=== PATIENT | female | born 1990 | race Caucasian/White ===

== ENCOUNTER 2016-08-17 13:05 | Emergency (ER) | payer SELFPAY ==
[~2016-08-17] VITALS: Ht 160 cm; Wt 127.0 kg
[~2016-08-17 13:05] MED LIST: CEFU250T PO; CEPH500C PO; CLIN300C11 PO; CPR500T PO; DICL50TA4 PO; DIPH25CA79 PO; DOXY100T2 PO; HYDR-757 PO; METR500T PO; METR500T21 PO; OXYC-12 PO; PROP1TAB77; SULF-222 PO; SULF1TAB35 PO; SULF1TAB38 PO; TIZA4TAB3 PO; TRAM-21 PO; TRAM50TA2 PO
--- NOTE | 2016-08-17 14:14 | ED Integumentary General ---
General Chief Complaint: Skin/Wound Problems Stated Complaint: BOIL ON STOMACH Nursing Triage Note: PT REPORTS RED, WARM, SWOLLEN, TENDER AREA TO RIGHT LOWER ABD. HX OF MRSA INFECTIONS. Source: patient, family (sister), spouse Exam Limitations: no limitations History of Present Illness Time seen by provider: 14:14 Initial Comments 25-year-old female patient presents to the emergency department with complaints of an erythematous, swollen, tender area of the right lower abdominal wall. Patient does have a history of an MRSA infection in the same area. Location Injury Occurred: denies known injury Timing/Duration: getting worse, other (2 days) Location: torso (right lower abdominal wall) Possible Cause: no cause identified Modifying Factors: worse with other (worse with palpation) Allergies and Home Medications Allergies Coded Allergies: Sulfa (Sulfonamide Antibiotics) (Verified Allergy, Unknown, 05/04/16) Home Medications Clindamycin HCl 300 Mg Capsule #40 300 MG PO QID Prescribed by: GISSELLE TINAJERO on 08/17/16 1438 Tramadol HCl 50 Mg Tablet #10 50 MG PO Q6H PRN PRN PAIN Prescribed by: GISSELLE TINAJERO on 08/17/16 1438 Constitutional: No chills, No fever, No malaise Respiratory: no symptoms reported Cardiovascular: no symptoms reported Gastrointestinal: see HPI abdominal pain (right lower abdominal wall pain)No constipation, No diarrhea, No loss of appetite, No nausea, No vomiting Genitourinary: no symptoms reported Musculoskeletal: no symptoms reported Skin: see HPI change in color (erythema right lower abdominal wall) lumps ( right lower abdominal wall) Psychiatric/Neurological: No Symptoms Reported All Other Systems Reviewed Negative Unless Noted: Yes (Negative excepted noted.) Past Olywvjn-Dvuvup-Fhhreb Hx Patient Social History Alcohol Use: Regular Use Recreational Drug Use: No Smoking Status: Current Everyday Smoker Type Used: Cigarettes Recent Foreign Travel: No Contact w/Someone Who Travel: No Recent Infectious Disease Expo: No Recent Hopitalizations: Yes (Jun MRSA INFECTION) Immunizations Up To Date Tetanus Booster (TDap): Unknown PED Vaccines UTD: Yes Seasonal Allergies Seasonal Allergies: No Surgeries HX Surgeries: Yes (I&D OF ABSCESSES) Surgeries: Orthopedic, Tonsillectomy Respiratory Hx Respiratory Disorders: No Cardiovascular Hx Cardiac Disorders: No Neurological Hx Neurological Disorders: No Reproductive System Hx Reproductive Disorders: Yes Sexually Transmitted Disease: No HIV/AIDS: No Female Reproductive Disorders: Polycystic Ovarian Dis Genitourinary Hx Genitourinary Disorders: Yes Genitourinary Disorders: UTI-Chronic Gastrointestinal Hx Gastrointestinal Disorders: No Musculoskeletal Hx Musculoskeletal Disorders: No Endocrine Hx Endocrine Disorders: No HEENT HX ENT Disorders: No Loss of Vision: Denies Hearing Impairment: Denies Cancer Hx Cancer: No Psychosocial Hx Psychiatric Problems: No Integumentary HX Skin/Integumentary Disorder: Yes (MULTIPLE MRSA ABSCESSES) Blood Transfusions Hx Blood Disorders: No Adverse Reaction to a Blood Tr: No Reviewed Nursing Assessment Reviewed/Agree w Nursing PMH: Yes Family Medical History Significant Family History: No Pertinent Family Hx Family Medial History: Diabetes mellitus Maternal grandmother Paternal grandmother1 FHx: heart disease Maternal grandmother Physical Exam Vital Signs Vital Sign - Last 12Hours 08/17/16 13:49 Temp 98.2 Pulse 90 Resp 18 B/P 133/89 Capillary Refill : Less Than 3 Seconds General Appearance: WD/WN no apparent distress Cardiovascular: regular rate, rhythm no murmur Respiratory: lungs clear normal breath sounds no respiratory distress Gastrointestinal: softNo distended, No guarding, No rebound, tenderness (RLQ abdominal wall at site of cellulitis.) other (4x6 cm area of erythema of the RLQ abdominal wall with central fluctuance, warmth, and tenderness.) Extremities: normal capillary refill Neurologic/Psychiatric: alert normal mood/affect oriented x 3 Skin: normal color warm/dry other (4x6 cm area of erythema of the RLQ abdominal wall with central fluctuance, warmth, and tenderness.) Skin Problem Location: torso (rt lower quadrant abdominal wall.) Skin Problem Character: abscess, erythema, swelling, tenderness, warm I&D : Site: rt lower quadrant abdominal wall abscess. Blade Size: 11 I & D Procedure: betadine prep sterile drapes applied sterile dressing applied gauze wick placed Progress One quarter-inch plain packing used. Wound covered with 4 x 4 gauze and tape. Blood loss minimal. Patient tolerated the procedure well. Progress/Results/Core Measures Results/Orders My Orders Orders-GISSELLE TINAJERO Hydrocodone/Apap 7.5/325 Tab (Lortab 7. (08/17/16 14:22) Lidocaine/Epi 1% 1:100,000 (Xylocaine /E (08/17/16 14:30) Wound Culture (2/13/17 15:07) Vital Signs/I&O Vital Sign - Last 12Hours 08/17/16 13:49 Temp 98.2 Pulse 90 Resp 18 B/P 133/89 Blood Pressure Mean: 104 Departure Communication Progress Notes Patient seen, evaluated, and incision and drainage performed. Cultures sent to lab for testing. Discharge to home with oral antibiotics. Impression Impression: Primary Impression: Abscess Disposition: HOME, SELF-CARE Condition: Improved Departure-Patient Inst. Decision time for Depature: 14:34 Referrals: [facility] (PCP/Family) Primary Care Physician Patient Instructions: Abscess Incision and Drainage (DC) Add. Discharge Instructions: All discharge instructions reviewed with patient and/or family. Voiced understanding. Medications as instructed. Tylenol extra strength over-the- counter as directed for pain. Ibuprofen 800 mg by mouth every 8 hours as needed for pain. Shower with antibacterial soap. Change the packing twice daily. Follow-up with her family practitioner this week for recheck. Return to the emergency department for worsened swelling, redness, drainage, fever, or any other concerns. Scripts Tramadol HCl 50 Mg Liioeq50 Mg PO Q6H PRN PAIN #10 TAB Ref 0 Prov:GISSELLE TINAJERO 08/17/16 Clindamycin HCl 300 Mg [id number] Mg PO QID #40 CAP Ref 0 Prov:GISSELLE TINAJERO 08/17/16 GISSELLE TINAJERO Aug 17, 2016 14:14
[2016-08-17] MEDS ORDERED: HYDROcodone/APAP 7.5 MG/325 MG (LORTAB, LORCET PLUS) TABLET PO STA (14:22)
[2016-08-17] MEDS ORDERED: LIDOCAINE/EPI 1%-1:100,000 (XYLOCAINE) 20ML INJ ONE (14:30)
[2016-08-17] MEDS ORDERED: TRAM50TA2 PO (14:38)
[2016-08-17] MEDS ORDERED: CLIN300C11 PO (14:38)
[2016-08-17 15:27] VITALS: BP 138/90
== END 2016-08-17 15:27 | disposition home or self-care (01) ==
LOC: EDUNIT# 13:05 → ER 13:06
DX: L02.211 Cutaneous abscess of abdominal wall (principal); F17.210 Nicotine dependence, cigarettes, uncomplicated; Z86.14 Personal history of Methicillin resistant Staphylococcus aureus infection
CPT/HCPCS: 10061; 87070; 87077; 87186; 87205

== ENCOUNTER 2017-03-27 14:41 | Emergency (ER) | payer SELFPAY ==
[~2017-03-27] VITALS: Ht 157.5 cm; Wt 99.8 kg
--- OUTSIDE RECORDS SUMMARY | 2017-03-27 14:47 | XMS REPORT ---
Author Author ODETTE VILLAGRAN [facility] eClinicalWorks Address Unknown Phone Unavailable Care Team Providers Care Truck Rental Service Attendant Name Role Phone ODETTE VILLAGRAN CP Unavailable Allergies, Adverse Reactions, Alerts Substance Reaction Event Type Sulfamethoxazole-Trimethoprim rash Drug Allergy Problems Problem Type Condition Code Onset Dates Condition Status Assessment Dysuria R30.0 Active Assessment Skin infection L08.9 Active Problem High risk heterosexual behavior Z72.51 Active Problem Dysuria R30.0 Active Problem General medical exam Z00.00 Active Assessment High risk heterosexual behavior Z72.51 Active Assessment History of female hirsutism Z87.898 Active Problem Skin infection L08.9 Active Assessment General medical exam Z00.00 Active Medications Medication Code System Code Instructions Start Date End Date Status Dosage Spironolactone [facility] [address]-04 25 MG Orally Once a day May 15, 2015 1 tablet Keflex [facility] [address]-53 500 MG Orally four times a day October 22, 2015 November 01, 2015 1 capsule Procedures Procedure Coding System Code Date URINE TEST CPT-4 31525 October 22, 2015 SPECIMEN HANDLING CPT-4 03953 October 22, 2015 URINALYSIS, AUTO, W/O SCOPE CPT-4 34316 October 22, 2015 TRICHOMONAS ASSAY W/OPTIC CPT-4 91029 October 22, 2015 No Charge CPT-4 56906 October 22, 2015 CULTURE, BACTERIA, OTHER CPT-4 53279 October 22, 2015 Office Visit, Est Pt., Level 5 CPT-4 32932 October 22, 2015 Vital Signs Date/Time: October 22, 2015 Temperature 97.9 F Weight 269.0 lbs Height 64 in BMI 46.17 Index Blood Pressure Diastolic 82 mmHg Blood Pressure Systolic 136 mmHg Cardiac Monitoring Heart Rate 86 bpm Results Name Result Date Reference Range Unit Abnormality Flag UA LONG DIP (IN HOUSE) ----pH 6.0 20151022 ----BLO 2+ 20151022 ----Clarity clear 20151022 ----Color yellow 20151022 ----Odor no 20151022 ----GLU neg 20151022 ----RAMÓN neg 20151022 ----ROSALINE neg 20151022 ----NIT neg 20151022 ----KET neg 20151022 ----Lot # [id number] 20151022 ----SG 1.025 20151022 ----URO 0.2 20151022 ----Exp date 20151022 ----Protein neg 20151022 TEST, URINE (IN HOUSE) ----RESULTS negative 20151022 ----Lot # [id number] 20151022 ----Control + 20151022 ----Exp date 20151022 TRICHOMONAS (IN HOUSE) ----Exp date 20151022 ----Control + 20151022 ----Lot # [id number] 20151022 ----TRICHOMONAS negative 20151022 Summary Purpose eClinicalWorks Submission
--- OUTSIDE RECORDS SUMMARY | 2017-03-27 14:47 | XMS REPORT ---
Author Author JUVENCIO CALDERA [facility] eClinicalWorks Address Unknown Phone Unavailable Care Team Providers Care Oncology Account Specialist Name Role Phone JUVENCIO CALDERA CP Unavailable Allergies No Known Allergies Problems Problem Type Condition Code Onset Dates Condition Status Assessment Irregular menses 626.4 Active Medications No Known Medications Results No Known Results Summary Purpose eClinicalWorks Submission
--- OUTSIDE RECORDS SUMMARY | 2017-03-27 14:48 | XMS REPORT ---
Author Author ODETTE VILLAGRAN [facility] eClinicalWorks Address Unknown Phone Unavailable Care Team Providers Care Supervisor Coffee Name Role Phone ODETTE VILLAGRAN Unavailable Allergies No Known Allergies Problems Problem Type Condition Code Onset Dates Condition Status Problem High risk heterosexual behavior Z72.51 Active Problem Dysuria R30.0 Active Problem General medical exam Z00.00 Active Problem Skin infection L08.9 Active Medications Medication Code System Code Instructions Start Date End Date Status Dosage Flagyl [facility] [address]-51 500 MG Orally 2 times a day October 25, 2015 November 01, 2015 1 tablet Results No Known Results Summary Purpose eClinicalWorks Submission
--- OUTSIDE RECORDS SUMMARY | 2017-03-27 14:48 | XMS REPORT ---
Author Author ODETTE VILLAGRAN Organization eClinicalWorks Address Unknown Phone Unavailable Care Team Providers Care Community Liaison Name Role Phone ODETTE VILLAGRAN CP Unavailable Allergies No Known Allergies Problems Problem Type Condition Code Onset Dates Condition Status Problem High risk heterosexual behavior Z72.51 Active Problem Dysuria R30.0 Active Problem General medical exam Z00.00 Active Problem Skin infection L08.9 Active Medications No Known Medications Results No Known Results Summary Purpose eClinicalWorks Submission
--- OUTSIDE RECORDS SUMMARY | 2017-03-27 14:49 | XMS REPORT ---
Author Author DOMI RODAS [facility] eClinicalWorks Address Unknown Phone Unavailable Care Team Providers Care Herpetology Teacher Name Role Phone DOMI RODAS CP Unavailable Allergies, Adverse Reactions, Alerts Substance Reaction Event Type Sulfamethoxazole-Trimethoprim rash Drug Allergy Problems Problem Type Condition Code Onset Dates Condition Status Assessment History of female hirsutism Z87.898 Active Assessment Irregular menses N92.6 Active Assessment Lower abdominal pain R10.30 Active Assessment Pain with urination R30.9 Active Assessment History of ovarian cyst Z87.42 Active Assessment History of chlamydia Z86.19 Active Medications Medication Code System Code Instructions Start Date End Date Status Dosage Spironolactone [facility] [address]-13 25 MG Orally Once a day May 15, 2015 Aug 13, 2015 1 tablet Procedures Procedure Coding System Code Date VENIPUNCT, ROUTINE* CPT-4 68054 May 15, 2015 No Charge CPT-4 60476 May 15, 2015 COMPLETE CBC W/AUTO DIFF WBC CPT-4 13226 May 15, 2015 URINALYSIS, AUTO, W/O SCOPE CPT-4 45499 May 15, 2015 LIPID PANEL CPT-4 43400 May 15, 2015 ASSAY OF TOTAL TESTOSTERONE CPT-4 65933 May 15, 2015 Office Visit, Est Pt., Level 4 CPT-4 34889 May 15, 2015 GONADOTROPIN (LH) CPT-4 95725 May 15, 2015 COMPREHEN METABOLIC PANEL CPT-4 44133 May 15, 2015 ASSAY OF PROLACTIN CPT-4 28137 May 15, 2015 GONADOTROPIN (FSH) CPT-4 56146 May 15, 2015 Vital Signs Date/Time: May 15, 2015 Temperature 98.3 F Weight 266.4 lbs Height 64 in BMI 45.72 Index Blood Pressure Diastolic 82 mmHg Blood Pressure Systolic 120 mmHg Cardiac Monitoring Heart Rate 80 bpm Results Name Result Date Reference Range Unit Abnormality Flag ROUTINE VENIPUNCTURE UA LONG DIP (IN HOUSE) Summary Purpose eClinicalWorks Submission
--- OUTSIDE RECORDS SUMMARY | 2017-03-27 14:49 | XMS REPORT ---
Author Author KRZYSZTOF CARTER [facility] eClinicalWorks Address Unknown Phone Unavailable Care Team Providers Care Internal Auditor Name Role Phone KRZYSZTOF CARTER CP Unavailable Allergies No Known Allergies Problems Problem Type Condition Code Onset Dates Condition Status Problem Counseling on substance use and abuse V65.42 Active Problem Hidradenitis 705.83 Active Problem Screening examination for venereal disease V74.5 Active Problem Other specified symptom associated with female genital organs 625.8 Active Problem Contact dermatitis and other eczema, due to unspecified cause 692.9 Active Problem Procreative counseling and advice using natural family planning V26.41 Active Problem Muscle pain 729.1 Active Problem Pain in soft tissues of limb 729.5 Active Problem Unspecified erythematous condition 695.9 Active Problem Routine general medical examination at health care facility V70.0 Active Problem Swelling of limb 729.81 Active Problem Unspecified breast screening V76.10 Active Problem Nondependent tobacco use disorder 305.1 Active Problem Morbid obesity 278.01 Active Problem Screening for malignant neoplasm of the cervix V76.2 Active Problem Nausea alone 787.02 Active Problem Lumbago 724.2 Active Problem Dehydration 276.51 Active Problem Obesity, unspecified 278.00 Active Problem Dizziness and giddiness 780.4 Active Problem Dietary surveillance and counseling V65.3 Active Medications No Known Medications Results No Known Results Summary Purpose eClinicalWorks Submission
[2017-03-27] MEDS ORDERED: morphine INJ 10 MG/ML 1ML (SYR OR VIAL) IM STA (17:11)
[2017-03-27] MEDS ORDERED: LIDOCAINE 1% INJ 20 ML (XYLOCAINE) VIAL INJ STA (17:11)
--- NOTE | 2017-03-27 17:11 | ED Abdominal Pain ---
General Chief Complaint: Skin/Wound Problems Stated Complaint: BOIL ON LOWER STOMACH Nursing Triage Note: c/o abscess to each side of panniculus. Also reports abscess to axillas. Scattered rash in folds on back resembling fungal infection noted. Onset greater 1 week ago. States abscesses are recurrent. Sepsis Screen: No Definite Risk Source of Information: Patient, Other (friend) Exam Limitations: No Limitations History of Present Illness Time Seen By Provider: 16:50 Initial Comments 26-year-old female patient presents to the emergency department complains of abscesses of the panniculus. Patient reports a history of hidradenitis with multiple abscesses. Also complains of a fungal infection of the bilateral back folds and right neck. Denies fever or chills. Her and her friend both of tried squeezing on the abscesses at home. Denies contacting her PCP for this. Timing/Duration: 3-4 Days, Getting Worse Severity/Quality: Moderate Location: Other (panniculus) Radiation: No Radiation Activities at Onset: None Modifying Factors: Worsens With Palpation Allergies and Home Medications Allergies Coded Allergies: Sulfa (Sulfonamide Antibiotics) (Verified Allergy, Unknown, 05/04/16) Home Medications Ciprofloxacin HCl 500 Mg Tablet, 500 MG PO BID, #14 Ref 0 Prescribed by: GISSELLE TINAJERO on 03/27/171756 Clindamycin HCl 300 Mg Capsule, 300 MG PO QID, #40 Ref 0 Prescribed by: GISSELLE TINAJERO on 08/17/16 143 Clotrimazole/Betamethasone Dip 15 Gm Cream..g., 15 GM TP UD, #1 Ref 0 Apply to the affected area twice daily for 10-14 days. Continue medicine for 2 days after symptoms resolve. Prescribed by: GISSELLE TINAJERO on 03/27/17 180 Minocycline HCl 100 Mg Capsule, 100 MG PO BID, #14 Ref 0 Prescribed by: GISSELLE TINAJERO on 03/27/17 175 Tramadol HCl 50 Mg Tablet, 50 MG PO Q6H PRN for PAIN, #10 Ref 0 Prescribed by: GISSELLE TINAJERO on 08/17/16 143 Tramadol HCl 50 Mg Tablet, 50 MG PO Q6H PRN for PAIN-MILD, #14 Ref 0 Prescribed by: GISSELLE TINAJERO on 03/27/171756 Review of Systems Constitutional: No chills, No fever, No malaise Respiratory: No Symptoms Reported Cardiovascular: No Symptoms Reported Gastrointestinal: See HPI, Denies Abdomen Distended, Denies Abdominal Pain, Denies Constipated, Denies Diarrhea, Denies Nausea, Denies Vomiting Genitourinary: No Symptoms Reported Musculoskeletal: no symptoms reported Skin: see HPI, lumps, rash Psychiatric/Neurological: No Symptoms Reported All Other Systems Reviewed Negative Unless Noted: Yes (Negative excepted noted.) Past Dekryih-Acpzyb-Gvglbo Hx Patient Social History Alcohol Beverage of Choice: Vodka Type Used: Cigarettes Recent Foreign Travel: No Contact w/Someone Who Travel: No Recent Infectious Disease Expo: No Recent Hopitalizations: Yes (Jun MRSA INFECTION) Immunizations Up To Date Tetanus Booster (TDap): Unknown PED Vaccines UTD: Yes Seasonal Allergies Seasonal Allergies: No Surgeries History of Surgeries: Yes (I&D of abscesses) Surgeries: Orthopedic, Tonsillectomy Respiratory Currently Using BIPAP: No Cardiovascular History of Cardiac Disorders: No Neurological History of Neurological Disord: No Reproductive System Hx Reproductive Disorders: Yes Sexually Transmitted Disease: No HIV/AIDS: No Female Reproductive Disorders: Polycystic Ovarian Dis Genitourinary History of Genitourinary Disor: No Genitourinary Disorders: UTI-Chronic Gastrointestinal History of Gastrointestinal Di: No Musculoskeletal History of Musculoskeletal Dis: Yes Musculoskeletal Disorders: Fractures Endocrine History of Endocrine Disorders: No HEENT Loss of Vision: Denies Hearing Impairment: Denies Integumentary History of Skin or Integumenta: Yes (hidradenitis) Blood Transfusions Adverse Reaction to a Blood Tr: No Reviewed Nursing Assessment Reviewed/Agree w Nursing PMH: Yes Family Medical History Significant Family History: No Pertinent Family Hx Family Medial History: Diabetes mellitus Maternal grandmother Paternal grandmother1 FHx: heart disease Maternal grandmother Physical Exam Vital Signs VS - Last 72 Hours, by Label 03/27/17 03/27/17 03/27/17 16:20 18:09 18:10 Temp 97.5 97.5 97.5 Pulse 70 Resp 16 B/P (MAP) 134/93 O2 Delivery Room Air Capillary Refill : Less Than 3 Seconds General Appearance: WD/WN, no apparent distress HEENT: PERRL/EOMI, pharynx normal Neck: supple, normal inspection, other (scaly, erythematous rash of the rt neck consistent with tinea corporis.) Respiratory: lungs clear, normal breath sounds, no respiratory distress, no accessory muscle use Cardiovascular: regular rate, rhythm, no edema, no murmur Gastrointestinal: normal bowel sounds, soft, no organomegaly, No guarding, other (2x2.5 cm abscess left pannus and a 2x3.5 cm abscess right pannus with mild erythema and tenderness. scattered cysts of the lower abdominal wall and pannus noted.) Genital/Rectal: other (left labia majora shows a 1x0.5 cm cyst without erythema or open wound.) Extremities: no pedal edema, normal capillary refill, other ( Scattered cysts of the bilateral groin and proximal thighs.) Back: other (scaly, erythematous patches of the bilateral back folds consistent with tinea corporis.) Neurologic/Psychiatric: alert, normal mood/affect, oriented x 3 Skin: normal color, warm/dry, rash (scaly, erythematous patches of the bilateral back folds and rt neck consistent with tinea corporis.), other (2x2.5 cm abscess left pannus and a 2x3.5 cm abscess right pannus with mild erythema and tenderness. scattered cysts of the lower abdominal wall and pannus noted.left labia majora shows a 1x0.5 cm cyst without erythema or open wound. Scattered cysts of the bilateral groin and proximal thighs.) I&D #1: Site: rt pannus Blade Size: 11 I & D Procedure: betadine prep, sterile drapes applied, sterile dressing applied Packing/Drain: 1/4 [place] Drain Progress kelley drain secured with 0 prolene. blood loss minimal. patient tolerated the procedure well. I&D #2: Site: left pannus Blade Size: 11 I & D Procedure: betadine prep, sterile drapes applied, sterile dressing applied Packing/Drain: 1/4 [place] Drain Progress kelley drain secured with 0 prolene. blood loss minimal. patient tolerated the procedure well. Progress/Results/Core Measures Results/Orders My Orders Orders - GISSELLE TINAJERO Morphine Injection (Morphine Injection (03/27/17 17:11) Lidocaine 1% Injection (Xylocaine 1% Inj (03/27/17 17:11) Clindamycin Capsule (Cleocin Capsule) (03/27/17 17:15) Wound Culture (03/27/17 18:34) Wound Culture (03/27/17 18:38) Medications Given in ED Current Medications Medications Dose Ordered Sig/Kyler Route Start Time Stop Time Status Last Admin Dose Admin Clindamycin HCl 450 mg ONCE ONCE PO 03/27/17 17:15 03/27/17 17:16 DC 03/27/17 18:09 450 MG Vital Signs/I&O Vital Sign - Last 12Hours 03/27/17 03/27/17 03/27/17 16:20 18:09 18:10 Temp 97.5 97.5 97.5 Pulse 70 Resp 16 B/P (MAP) 134/93 O2 Delivery Room Air Blood Pressure Mean: 107 Departure Communication (Admissions) Progress Notes patient seen, evaluated, and I&D performed. plan for dsch to home. Impression Impression: Primary Impression: Hydradenitis Additional Impressions: Tinea corporis Upper respiratory infection Qualified Codes: J06.9 - Acute upper respiratory infection, unspecified Disposition: HOME, SELF-CARE Condition: Improved Departure-Patient Inst. Decision time for Depature: 17:55 Referrals: [facility] (PCP/Family) Primary Care Physician Patient Instructions: Hidradenitis Suppurativa Add. Discharge Instructions: All discharge instructions reviewed with patient and/or family. Voiced understanding. Medications as instructed. Tylenol extra strength over-the- counter as directed for pain. Ibuprofen 800 mg by mouth every 8 hours as needed for pain. Shower with antibacterial soap and cover with gauze and tape. Follow-up with your primary care provider as an outpatient early this week, call first thing Wednesday morning for appointment time. Return to the emergency department for worsened pain, swelling, redness, fever, drainage, or any other concerns. Scripts Clotrimazole/Betamethasone Dip (Lotrisone Cream) 15 Gm Cream..g. 15 GM TP UD, #1 TUBE 0 Refills Apply to the affected area twice daily for 10-14 days. Continue medicine for 2 days after symptoms resolve. Prov: GISSELLE TINAJERO 03/27/17 Tramadol HCl (Tramadol HCl) 50 Mg Tablet 50 MG PO Q6H Y for PAIN-MILD, #14 TAB 0 Refills Prov: GISSELLE TINAJERO 03/27/17 Minocycline HCl (Minocycline HCl) 100 Mg Capsule 100 MG PO BID, #14 CAP 0 Refills Prov: GISSELLE TINAJERO 03/27/17 Ciprofloxacin HCl (Ciprofloxacin HCl) 500 Mg Tablet 500 MG PO BID, #14 TAB 0 Refills Prov: GISSELLE TINAJERO 03/27/17 GISSELLE TINAJERO Mar 27, 2017 17:11
[2017-03-27] MEDS ORDERED: CLINDAMYCIN 150 MG (CLEOCIN) CAP PO ONE (17:15)
[2017-03-27] MEDS ORDERED: TRAM50TA2 PO (17:57)
[2017-03-27] MEDS ORDERED: CIPR500T4 PO (17:57)
[2017-03-27] MEDS ORDERED: MINO100C2 PO (17:57)
[2017-03-27] MEDS ORDERED: CLOT15CR4 TP (18:01)
[2017-03-27 19:23] VITALS: BP 128/90
== END 2017-03-27 19:23 | disposition home or self-care (01) ==
LOC: EDUNIT# 14:41 → ER 14:42
DX: L73.2 Hidradenitis suppurativa (principal); B35.4 Tinea corporis; J06.9 Acute upper respiratory infection, unspecified; Z87.81 Personal history of (healed) traumatic fracture; Z87.42 Personal history of other diseases of the female genital tract; Z90.89 Acquired absence of other organs
CPT/HCPCS: 87070; 87205; 96372

== ENCOUNTER 2017-09-06 15:16 | Emergency (ER) | payer SELFPAY ==
[~2017-09-06] VITALS: Ht 157.5 cm; Wt 113.4 kg
[~2017-09-06 15:16] MED LIST changes: +CIPR500T4 PO; +CLOT15CR4 TP; +MINO100C2 PO
[2017-09-06] MEDS ORDERED: PRD20T PO (15:29)
[2017-09-06] MEDS ORDERED: DOXY100T2 PO (15:29)
--- NOTE | 2017-09-06 15:30 | ED General ---
General Chief Complaint: Cough/Cold/Flu Symptoms Stated Complaint: COUGH Source of Information: Patient Exam Limitations: No Limitations History of Present Illness Date Seen by Provider: Sep 06, 2017 Time Seen by Provider: 15:25 Initial Comments ER with reports of a productive cough for the past 2 weeks. She also has discomfort in her throat. She reports night sweats. She also has an abscess on the right lower anterior abdominal wall present for 2-3 days. Timing/Duration: 2-3 Days Severity: Moderate Allergies and Home Medications Allergies Coded Allergies: Sulfa (Sulfonamide Antibiotics) (Verified Allergy, Unknown, 05/04/16) Home Medications Ciprofloxacin HCl 500 Mg Tablet, 500 MG PO BID Prescribed by: GISSELLE TINAJERO on 03/27/171756 Clindamycin HCl 300 Mg Capsule, 300 MG PO QID Prescribed by: GISSELLE TINAJERO on 08/17/161437 Clotrimazole/Betamethasone Dip 15 Gm Cream..g., 15 GM TP UD Apply to the affected area twice daily for 10-14 days. Continue medicine for 2 days after symptoms resolve. Prescribed by: GISSELLE TINAJERO on 03/27/17 180 Doxycycline Hyclate 100 Mg Tablet, 100 MG PO BID Prescribed by: RADHA SANDERS on 09/06/17 152 Minocycline HCl 100 Mg Capsule, 100 MG PO BID Prescribed by: GISSELLE TINAJERO on 03/27/171756 Prednisone 20 Mg Tab, 40 MG PO DAILY Prescribed by: RADHA SANDERS on 09/06/17 152 Tramadol HCl 50 Mg Tablet, 50 MG PO Q6H PRN for PAIN Prescribed by: GISSELLE TINAJERO on 08/17/16 143 Tramadol HCl 50 Mg Tablet, 50 MG PO Q6H PRN for PAIN-MILD Prescribed by: GISSELLE TINAJERO on 03/27/171756 Patient Home Medication List Home Medication List Reviewed: Yes Constitutional: see HPI EENTM: see HPI, other (left tympanic membrane is slightly erythematous and bulging) Respiratory: no symptoms reported Cardiovascular: no symptoms reported Genitourinary: no symptoms reported Musculoskeletal: no symptoms reported Skin: no symptoms reported Psychiatric/Neurological: No Symptoms Reported Hematologic/Lymphatic: No Symptoms Reported Immunological/Allergic: no symptoms reported Past Mmvfytn-Nuphdy-Lzosdx Hx Patient Social History Alcohol Beverage of Choice: Vodka Type Used: Cigarettes Recent Foreign Travel: No Contact w/Someone Who Travel: No Recent Hopitalizations: Yes (Jun MRSA INFECTION) Immunizations Up To Date Tetanus Booster (TDap): Unknown PED Vaccines UTD: Yes Seasonal Allergies Seasonal Allergies: No Surgeries History of Surgeries: Yes (I&D of abscesses) Surgeries: Orthopedic, Tonsillectomy Respiratory History of Respiratory Disorde: No Currently Using BIPAP: No Cardiovascular History of Cardiac Disorders: No Neurological History of Neurological Disord: No Reproductive System Hx Reproductive Disorders: Yes Sexually Transmitted Disease: No HIV/AIDS: No Female Reproductive Disorders: Polycystic Ovarian Dis Genitourinary History of Genitourinary Disor: No Genitourinary Disorders: UTI-Chronic Gastrointestinal History of Gastrointestinal Di: No Musculoskeletal History of Musculoskeletal Dis: Yes Musculoskeletal Disorders: Fractures Endocrine History of Endocrine Disorders: No HEENT Loss of Vision: Denies Hearing Impairment: Denies Cancer History of Cancer: No Psychosocial History of Psychiatric Problem: No Integumentary History of Skin or Integumenta: Yes (hidradenitis) Blood Transfusions History of Blood Disorders: No Adverse Reaction to a Blood Tr: No Family Medical History Significant Family History: No Pertinent Family Hx Family Medial History: Diabetes mellitus Maternal grandmother Paternal grandmother1 FHx: heart disease Maternal grandmother Physical Exam Vital Signs Vital Signs - First Documented 09/06/17 15:24 Temp 96.3 Pulse 96 Resp 18 B/P (MAP) 149/107 (121) Pulse Ox 96 O2 Delivery Room Air Capillary Refill : General Appearance: No Apparent Distress, WD/WN Eyes: Bilateral Eye Normal Inspection, Bilateral Eye PERRL, Bilateral Eye EOMI HEENT: PERRL/EOMI, TMs Normal Neck: Full Range of Motion, Normal Inspection Respiratory: Normal Breath Sounds, No Accessory Muscle Use, No Respiratory Distress Cardiovascular: Regular Rate, Rhythm Gastrointestinal: Normal Bowel Sounds, Non Tender, Soft Extremity: Normal Capillary Refill, Normal Inspection Neurologic/Psychiatric: Alert, Oriented x3, No Motor/Sensory Deficits Skin: Normal Color, Warm/Dry, Other (2 cm fluctuant abscess right lower abdominal wall) I&D : Blade Size: 11 Progress Abdominal wall abscess was anesthetized with 0.5 mL of 1% lidocaine without epinephrine. Stab incision was then made with 11 blade scalpel. Moderate amount of purulent material was expressed. 1/2 inch plain packing was placed. Covered with gauze. Progress/Results/Core Measures Suspected Sepsis SIRS Temperature: Pulse: Respiratory Rate: Blood Pressure / Mean: Results/Orders My Orders Orders - RADHA SANDERS APRN Chest Pa/Lat (2 View) (09/06/17 15:24) Wound Culture (09/06/17 15:24) Vital Signs/I&O Vital Sign - Last 12Hours 09/06/17 09/06/17 09/06/17 15:24 15:24 16:03 Temp 96.3 Pulse 96 85 Resp 18 20 B/P (MAP) 149/107 (121) 129/89 Pulse Ox 96 98 O2 Delivery Room Air Capillary Refill : Departure Impression Impression: Primary Impression: Abscess Additional Impression: Bronchitis Disposition: HOME, SELF-CARE Condition: Stable Departure-Patient Inst. Decision time for Depature: 15:27 Referrals: [facility] (PCP/Family) Primary Care Physician Patient Instructions: NO INSTRUCTIONS GIVEN Add. Discharge Instructions: 1. Return to ER for any concerns 2. Follow-up with your doctor next week 3. REmove packing tomorrow by simply pulling on it and keep it covered with gauze to collect the continued drainage for the next few days. All discharge instructions reviewed with patient and/or family. Voiced understanding. Scripts Prednisone (Prednisone) 20 Mg Tab 40 MG PO DAILY, #10 TAB Prov: RADHA SANDERS APRN 09/06/17 Doxycycline Hyclate (Doxycycline Hyclate) 100 Mg Tablet 100 MG PO BID, #14 TAB Prov: RADHA SANDERS APRN 09/06/17 RADHA SANDERS APRN Sep 06, 2017 15:29
--- NOTE | 2017-09-06 15:55 | Diagnostic Imaging Report ---
INDICATION: Cough and congestion. COMPARISON: 03/23/2015. FINDINGS: Two views of the chest are obtained. Heart size is normal. The pulmonary vessels appear unremarkable. There is no pneumothorax, mediastinal widening, or pleural fluid. The lungs are clear. The osseous structures appear unremarkable. IMPRESSION: No acute abnormality is demonstrated. Dictated by: Dictated on workstation # [id number]
[2017-09-06 16:03] VITALS: BP 129/89
== END 2017-09-06 16:03 | disposition home or self-care (01) ==
LOC: EDUNIT# 15:16 → ER 15:17
DX: J40 Bronchitis, not specified as acute or chronic (principal); L02.211 Cutaneous abscess of abdominal wall; Z87.42 Personal history of other diseases of the female genital tract; Z87.440 Personal history of urinary (tract) infections; Z87.81 Personal history of (healed) traumatic fracture; Z90.89 Acquired absence of other organs; Z86.14 Personal history of Methicillin resistant Staphylococcus aureus infection; Z88.2 Allergy status to sulfonamides
CPT/HCPCS: 56420; 71046; 87070; 87205

== ENCOUNTER 2017-12-12 17:28 | Emergency (ER) | payer SELFPAY ==
[~2017-12-12] VITALS: Ht 162.6 cm; Wt 90.7 kg
[~2017-12-12 17:28] MED LIST changes: +PRD20T PO
--- OUTSIDE RECORDS SUMMARY | 2017-12-12 17:34 | XMS REPORT ---
Author Author HANSA HOFFMANN [facility] Address [address] [place] [address] Care Team Providers Care Dispatcher Motor Vehicle Name Role Phone TAHIRA, HANSA Unavailable PROBLEMS Type Condition ICD9-CM Code [id number] Code Onset Dates Condition Status SNOMED Code Problem Dysuria R30.0 Active 92216055 Problem High risk heterosexual behavior Z72.51 Active 832875760 Problem Skin infection L08.9 Active 820019870 Problem General medical exam Z00.00 Active 625863181 ALLERGIES Substance Reaction Event Type Date Status Sulfamethoxazole-Trimethoprim rash Drug Allergy Jun, Active Cephalexin Unknown Drug Allergy Jun, Active ENCOUNTERS Encounter Location Date Diagnosis [facility] [id number] [place] [address] Sep, Acute suppurative otitis media of both ears without spontaneous rupture of tympanic membranes, recurrence not specified H66.003 ; Cutaneous abscess of abdominal wall L02.211 ; Cutaneous abscess of left lower limb L02.416 ; Seasonal allergic rhinitis, unspecified trigger J30.2 and BMI 45.0-49.9, adult Z68.42 [facility] [id number] [place] [address] Sep, Sore throat J02.9 ; Seasonal allergic rhinitis, unspecified trigger J30.2 and BMI 45.0-49.9, adult Z68.42 [facility] [id number] [place] [address] Jul, [facility] [id number] [place] [address]- [address] Jun, 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 [facility] [id number] [place] [address]- 30[address] Jun, Routine screening for STI (sexually transmitted infection) Z11.3 ; BMI 45.0-49.9, adult Z68.42 ; 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 [id number] [place] [address]- [address] Dec, Folliculitis L73.[address] [address] Oct, [address] [address] Oct, [address] [address] Oct, General medical exam Z00.00 ; High risk heterosexual behavior Z72.51 ; History of female hirsutism Z87.898 ; Dysuria R30.0 and Skin infection L08.[address] [address] May, Irregular menses 626.[address] [address] May, Lower abdominal pain R10.30 ; History of female hirsutism Z87.898 ; Irregular menses N92.6 ; History of ovarian cyst Z87.42 ; History of chlamydia Z86.19 and Pain with urination R30.9 [id number] [place] [address]- [address] Mar, [address] [address] Mar, Metrorrhagia 626.6 and Irregular menses 626.[address] [address]- [address] Mar, Irregular menses 626.4 ; Hirsutism 704.1 ; Vaginitis 616.10 and Metrorrhagia 626.6 [facility] [place] [facility] [address] [id number] [place] [address] Jan, Muscle pain 729.1 [facility] [place] [facility] [address] [id number] [place] [address] Oct, [facility] [place] [facility] [address] [facility] [id number] [place] [address] 99[address] Oct, [facility] [place] [facility] [address] [id number] [place] [address] Jun, [facility] [place] [facility] [address] [id number] [place] [address] 4470 Jun, [facility] [place] [facility] [address] [facility] [id number] [place] [address] 9060 Jun, [facility] [place] [facility] [address] [facility] [id number] [place] [address] 5471 Jun, [facility] [place] [facility] [address] [id number] [place] [address] 5271 Jun, [facility] [place] [facility] [address] [id number] [place] [address] 7212 Mar, [facility] [place] [facility] [address] [facility] [id number] [place] [address] 7532 Mar, [facility] [place] [facility] [address] [id number] [place] [address] 9[address] Feb, [facility] [place] [facility] [address] [id number] [place] [address] 4548 Feb, [facility] [place] [facility] [address] [id number] [place] [address]- 1804 Feb, [facility] [place] [facility] [address] [facility] [id number] [place] [address]- 0693 Feb, [facility] [place] [facility] [address] [facility] [id number] [place] [address]- 6365 Feb, [facility] [place] [facility] [address] [id number] [place] [address] 9795 15 Feb, 2014 [facility] [address] [id number] [place] [address] 1570 Feb, [facility] [address] [id number] [place] [address] 7733 Feb, [facility] [address] [id number] [place] [address] 4079 Oct, [facility] [address] [id number] [place] [address] 1699 Oct, [facility] [address] [id number] [place] [address] 3617 Oct, [facility] [address] [id number] [place] [address] 9874 Oct, [facility] [address] [id number] [place] [address]- 3396 Oct, [facility] [address] [id number] [place] [address] 9938 Oct, [facility] [address] [id number] [place] [address]- 2358 Oct, [facility] [address] [id number] [place] [address]- 1272 Jun, [facility] [place] [facility] [address] [id number] [place] [address]- 3670 27 Jun, 2013 [facility] [address] [id number] [place] [address]- 3969 17 Jun, 2013 [facility] [place] [facility] [address] [id number] [place] [address]- 9774 17 Jun, 2013 [facility] [place] [facility] [address] [id number] [place] [address]- 6275 16 Jun, 2013 [facility] [place] [facility] [address] [id number] [place] [address]- 1385 Jun, [facility] [address] [id number] [place] [address]- 1256 Jun, [facility] [place] [facility] [address] [id number] [place] [address]- 9816 Feb, [facility] [place] [facility] [address] [id number] [place] [address]- 3786 Jan, [facility] [place] [facility] [address] [id number] [place] [address]- 5696 Jan, [facility] [address] [id number] [place] [address]- 7746 Jan, [facility] [place] [facility] [address] [id number] [place] [address]- 8076 Jan, [facility] [address] [id number] [place] [address]- 8336 November, [facility] [address] [id number] [place] [address]- 4336 Oct, [facility] [place] [facility] [address] [id number] [place] [address]- 8866 Sep, [facility] [place] [facility] [address] [id number] [place] [address]- 7116 Aug, [facility] [place] [facility] [address] [id number] [place] [address]- 6896 Jul, [facility] [place] [facility] [address] [id number] [place] [address]- 6106 Jul, [facility] [place] [facility] [address] [id number] [place] [address]- 7626 Jul, [facility] [place] [facility] [address] [id number] [place] [address]- 3256 Jul, [facility] [place] [facility] [address] [id number] [place] [address]- 2546 Jul, [facility] [place] [facility] [address] [id number] [place] [address]- 65[address] Jul, [facility] [place] [facility] [address] [id number] [place] [address]- 2208 Jun, [facility] [place] [facility] [address] [facility] [id number] [place] [address]- 0173 Jun, [facility] [place] [facility] [address] [facility] [id number] [place] [address]- 7115 Jun, [facility] [place] [facility] [address] [id number] [place] [address]- 8959 Jun, [facility] [place] [facility] [address] [facility] [id number] [place] [address], [place] [address]- 6448 Jun, [facility] [place] [facility] [address] [facility] [id number] [place] [address]- 4754 Jun, [facility] [place] [facility] [address] [place] [address]- 8[address] Jun, [facility] [place] [facility] [address] [facility] [id number] [place] [address]- 4846 Apr, [facility] [place] [facility] [address] [facility] [id number] [place] [address]- 7736 Apr, [facility] [place] [facility] [address] [facility] [id number] [place] [address]- 5987 Apr, [facility] [place] [facility] [address] [facility] [id number] [place] [address]- 2103 Apr, [facility] [place] [facility] [address] [facility] [id number] [place] [address]- 5117 Apr, [facility] [place] [facility] [address] [facility] [id number] [place] [address]- 4583 Apr, [facility] [place] [facility] [address] [facility] [id number] [place] [address]- [address]24 27 Mar, 2012 [facility] [place] [facility] [address] [facility] [id number] [place] [address]- 1831 19 Mar, 2012 [facility] [place] [facility] [address] [id number] [place] [address]- 8649 14 Mar, 2011 [facility] [place] [facility] [address] [id number] [place] [address]- 6136 07 Mar, 2012 [facility] [place] [facility] [address] [id number] [place] [address] 2546 06 Mar, 2012 [facility] [place] [facility] [address] [id number] [place] [address]- 8566 05 Mar, 2012 [facility] [place] [facility] [address] [id number] [place] [address]- 5039 Feb, [facility] [place] [facility] [address] [id number] [place] [address]- 0328 Feb, [facility] [place] [facility] [address] [id number] [place] [address]- 1847 Feb, [facility] [place] [facility] [address] [id number] [place] [address]- 0283 Jan, [facility] [place] [facility] [address] [id number] [place] [address]- 7332 Jan, [facility] [place] [facility] [address] [id number] [place] [address]- 5694 November, [facility] [place] [facility] [address] [id number] [place] [address]- 7141 November, [facility] [place] [facility] [address] [id number] [place] [address]- 6486 November, [facility] [place] [facility] [address] [id number] [place] [address]- 7096 Aug, [facility] [place] [facility] [address] [id number] [place] [address]- 7925 Jul, [facility] [place] [facility] [address] [id number] [place] [address]- 7646 Jun, [facility] [place] [facility] [address] [id number] [place] [address]- 9249 Jun, [facility] [id number] [address]- [address] Apr, [facility] [address] [address]- [address] Apr, [facility] [address] [address]- 5366 Apr, [facility] [id number] [address]- 0[address] Apr, [facility] [address] [address]- 6189 Mar, [facility] [id number] [place] [address]- [address]896 Feb, [facility] [address] [address]- 9[address] Dec, [facility] [address] [address]- 4[address] Jan, [facility] [address] [address]- [address] May, [facility] [address] [address]- [address]141 May, IMMUNIZATIONS No Known Immunizations SOCIAL HISTORY Never Assessed REASON FOR VISIT Well Woman Exam---DBennettRN, would like blood work for STDs, questions about PCOS PLAN OF CARE Activity Details Follow Up 1 Year, sooner prn Reason: VITAL SIGNS Height 64 in 2017-06-15 Weight 278 lbs 2017-06-15 Temperature 98.8 degrees Fahrenheit 2017-06-15 Heart Rate 90 bpm 2017-06-15 Respiratory Rate 20 2017-06-15 BMI 47.71 kg/m2 2017-06-15 Blood pressure systolic 124 mmHg 2017-06-15 Blood pressure diastolic 90 mmHg 2017-06-15 MEDICATIONS Medication Instructions Dosage Frequency Start Date End Date Duration Status Spironolactone 25 MG Orally Once a day 1 tablet 24h May, Not -Taking Valacyclovir HCl 500 mg Orally twice a day 2 tablets 12h Jun, 2 Jul, 2017 07 days Active Diflucan 150 MG 1 tablet Jun, 1 dose Active RESULTS No Results PROCEDURES Procedure Date Ordered Result Body Site No Charge Jun 15, 2017 HERPES SIMPLEX TYPE 2 Jun 15, 2017 VENIPUNCT, ROUTINE* Jun 15, 2017 Bacterial Vaginosis In House Jun 15, 2017 TRICHOMONAS ASSAY W/OPTIC Jun 15, 2017 HERPES SIMPLEX TEST Jun 15, 2017 CULTURE, BACTERIA, OTHER Jun 15, 2017 INSTRUCTIONS MEDICATIONS ADMINISTERED No Known Medications MEDICAL (GENERAL) HISTORY Type Description Date Medical History hypertension Medical History anxiety Surgical History left humerus has plate and 7 screws Surgical History tonsillectomy and adenoidectomy- age 9
[2017-12-12] MEDS ORDERED: LIDOCAINE 1% INJ 20 ML 20 ML VIAL INJ ONE (19:30)
--- NOTE | 2017-12-12 19:30 | ED Integumentary General ---
General Chief Complaint: Skin/Wound Problems Stated Complaint: ABSCESS ON STOMACH Nursing Triage Note: ARRIVED VIA AMB WITH COMPLAINTS OF ABSCESS LEFT RHONDA AREA X1 WEEK. PT RECENTLY SHAVED PRIOR TO GETTIN ABSCESS. HAS A HX OF ABSCESS THAT HAVE TO BE LANCED AND PACKED. Source: patient, family Exam Limitations: no limitations History of Present Illness Date Seen by Provider: Dec 12, 2017 Time Seen by Provider: 19:22 Initial Comments The patient presents to the ER by private conveyance with a chief complaint she has a history of lots of abscess especially on her belly under her pannus. She says she has a history of hidradenitis suppurativa. She's not having any fevers or chills. She has a nodule midline under her pannus that has not started draining yet. She has no difficulty urinating or having bowel movements. She denies any nausea or vomiting. Allergies and Home Medications Allergies Coded Allergies: Sulfa (Sulfonamide Antibiotics) (Verified Allergy, Unknown, 05/04/16) Home Medications No Active Prescriptions or Reported Meds Patient Home Medication List Home Medication List Reviewed: Yes Constitutional: No chills, No diaphoresis EENTM: No ear discharge, No ear pain Respiratory: No cough, No phlegm Cardiovascular: No chest pain Gastrointestinal: No abdominal pain, No constipation, No diarrhea Genitourinary: No decreased output, No discharge, No dysuria : No Musculoskeletal: No back pain, No joint pain Skin: No pruritus, No rash Psychiatric/Neurological: Denies Headache, Denies Numbness Past Tepzepq-Ijfnvx-Yrijuu Hx Patient Social History Alcohol Use: Occasionally Uses Alcohol Beverage of Choice: Vodka Recreational Drug Use: No Smoking Status: Current Everyday Smoker Type Used: Cigarettes Recent Foreign Travel: No Contact w/Someone Who Travel: No Recent Infectious Disease Expo: No Recent Hopitalizations: Yes (Jun MRSA INFECTION) Immunizations Up To Date Tetanus Booster (TDap): Unknown PED Vaccines UTD: Yes Seasonal Allergies Seasonal Allergies: No Past Medical History Surgeries: Yes (I&D of abscesses) Orthopedic, Tonsillectomy Respiratory: No Currently Using BIPAP: No Cardiac: No Neurological: No Reproductive Disorders: Yes Female Reproductive Disorders: Polycystic Ovarian Dis Sexually Transmitted Disease: No HIV/AIDS: No Genitourinary: No UTI-Chronic Gastrointestinal: No Musculoskeletal: Yes Fractures Endocrine: No Loss of Vision: Denies Hearing Impairment: Denies Cancer: No Psychosocial: No Integumentary: Yes (hidradenitis) Blood Disorders: No Adverse Reaction/Blood Tranf: No Family Medical History Diabetes mellitus Maternal grandmother Paternal grandmother1 FHx: heart disease Maternal grandmother No Pertinent Family Hx Physical Exam Vital Signs Vital Signs - First Documented 12/12/17 18:22 Temp 98.0 Pulse 85 Resp 18 B/P (MAP) 156/97 (116) Pulse Ox 98 O2 Delivery Room Air Capillary Refill : Less Than 3 Seconds General Appearance: WD/WN, no apparent distress HEENT: PERRL/EOMI, pharynx normal Neck: non-tender, supple Cardiovascular: normal peripheral pulses, regular rate, rhythm Respiratory: no respiratory distress, no accessory muscle use Gastrointestinal: normal bowel sounds, soft Skin: other (several small old well-healed wounds and scars under the pannus and 1 central nodule with an open pore on the mons pubis with a palpable area of fluctuance underneath it approximately 1-1/2-2 cm wide.) Procedures/Interventions I&D : Site: mons pubis Blade Size: 11 Progress Wound was cleaned thoroughly with alcohol then chlorhexidine wipes. The wound was infiltrated with 1% lidocaine 4 cc and a ring fashion around the central pore when the patient was ascertained to be reasonably anesthetized we then used an 11 blade to make a cross santillan incision and drained about 10-15 cc of purulent material. The wound was then probed gently with a contact applicator to break up any loculations. The wound was then dressed with some sterile gauze and tape lightly. The patient tolerated this procedure very well. Progress/Results/Core Measures Results/Orders My Orders Orders - VALDEZ SCHAEFER Lidocaine 1% Inj 20 Ml (Xylocaine 1% Inj (12/12/17 19:30) Urine Bedside (12/12/17 19:39) Vital Signs/I&O 12/12/17 18:22 Temp 98.0 Pulse 85 Resp 18 B/P (MAP) 156/97 (116) Pulse Ox 98 O2 Delivery Room Air Blood Pressure Mean: 116 Departure Impression Primary Impression: Abscess Disposition: 01 HOME, SELF-CARE Condition: Improved Departure-Patient Inst. Decision time for Depature: 20:04 Referrals: [facility] (PCP/Family) Primary Care Physician Patient Instructions: Abscess Incision and Drainage (DC) Add. Discharge Instructions: Keep the wound clean with regular soap and water. Dislocated apply a loose gauze dressing over it but do not packet. Do not put anything in the wound such as alcohol or iodine or hydrogen peroxide. Just regular soap and water resolve in a. Start taking the clindamycin 300 mg twice a day for the next 7 days until completion. Follow up with a primary care doctor and discuss what can be done to help prevent these abscesses from forming. You can also use a capful of bleach and a couple inches of tepid bath water once or twice a week to try and reduce the incidence of abscesses. All discharge instructions reviewed with patient and/or family. Voiced understanding. Scripts Clindamycin HCl (Clindamycin HCl) 300 Mg Capsule 300 MG PO BID for 7 Days, #14 CAP 0 Refills Prov: VALDEZ SCHAEFER 12/12/17 Copy Copies To 1: JUVENCIO CALDERA DO VALDEZ SCHAEFER Dec 12, 2017 19:30
[2017-12-12] MEDS ORDERED: CLIN300C11 PO (20:06)
[2017-12-12 20:24] VITALS: BP 156/97
== END 2017-12-12 20:22 | disposition home or self-care (01) ==
LOC: EDUNIT# 17:28 → ER 17:29
DX: L02.215 Cutaneous abscess of perineum (principal); F17.210 Nicotine dependence, cigarettes, uncomplicated; Z87.448 Personal history of other diseases of urinary system; Z87.2 Personal history of diseases of the skin and subcutaneous tissue; Z90.89 Acquired absence of other organs; Z87.42 Personal history of other diseases of the female genital tract; Z87.81 Personal history of (healed) traumatic fracture; Z86.14 Personal history of Methicillin resistant Staphylococcus aureus infection; Z88.2 Allergy status to sulfonamides
CPT/HCPCS: 10060; 84703

== ENCOUNTER 2018-03-13 16:37 | Emergency (ER) | payer SELFPAY ==
[~2018-03-13] VITALS: Ht 160 cm; Wt 122.5 kg
[~2018-03-13 16:37] MED LIST changes: +HYDR-4226 PO; -HYDR-757 PO
[2018-03-13] MEDS ORDERED: cefTRIAXone 1,000 MG/2.86 ml vial (IM ONLY) IM SCH (17:00)
[2018-03-13] MEDS ORDERED: LIDOCAINE 1% INJ 20 ML 20 ML VIAL INJ ONE (17:00)
--- NOTE | 2018-03-13 17:03 | ED Integumentary General ---
General Chief Complaint: Skin/Wound Problems Stated Complaint: ABSCESS ON STOMACH/FEVER/NAUSEA Nursing Triage Note: ARRIVED VIA AMB WITH COMPLAINTS OF ABSCESS LEFT LOWER ABD. HAS A LONG HX OF THESE ABSCESS. HAS BEEN TOLD TO HAVE THEM REMOVED BY A SURGEON DUE TO TUNNELING BUT SHE CAN NOT AFFORD IT. Source: patient Exam Limitations: no limitations History of Present Illness Date Seen by Provider: Mar 13, 2018 Time Seen by Provider: 16:59 Initial Comments Patient is a 27-year-old female who presents to the emergency room with complaints of an abscess to her left lower abdomen. She noticed the area 3 days ago and became worse. There is an area of 6 cm in diameter of redness with a 2 cm area of fluctuation in the central punctum. 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 She reports feeling poorly for the past few days and is unsure if she is running a fever due to not taking her temperature. Timing/Duration: other (3 days) Associated Symptoms: denies symptoms Allergies and Home Medications Allergies Coded Allergies: Sulfa (Sulfonamide Antibiotics) (Verified Allergy, Unknown, 05/04/16) Home Medications Clindamycin HCl 300 Mg Capsule, 300 MG PO BID Prescribed by: VALDEZ SCHAEFER on 12/12/172005 Clindamycin HCl 300 Mg Capsule, 300 MG PO BID Prescribed by: LAKSHMI HENDERSON on 03/13/18 5622 Patient Home Medication List Home Medication List Reviewed: Yes Review of Systems Review of Systems Constitutional: see HPI; No chills, No fever Skin: see HPI, other (abscess to left lower abdomen) All Other Systems Reviewed Negative Unless Noted: Yes Past Qwptend-Iautzk-Cpnyyu Hx Past Med/Social Hx: Reviewed Nursing Past Med/Soc Hx Patient Social History Alcohol Beverage of Choice: Vodka Type Used: Cigarettes Recent Foreign Travel: No Contact w/Someone Who Travel: No Recent Infectious Disease Expo: No Recent Hopitalizations: Yes (Jun MRSA INFECTION) Immunizations Up To Date Tetanus Booster (TDap): Unknown PED Vaccines UTD: Yes Seasonal Allergies Seasonal Allergies: No Past Medical History Surgeries: Yes (I&D of abscesses) Orthopedic, Tonsillectomy Respiratory: No Currently Using BIPAP: No Cardiac: No Neurological: No Reproductive Disorders: Yes Female Reproductive Disorders: Polycystic Ovarian Dis Sexually Transmitted Disease: No HIV/AIDS: No Genitourinary: No UTI-Chronic Gastrointestinal: No Musculoskeletal: Yes Fractures Endocrine: No Loss of Vision: Denies Hearing Impairment: Denies Cancer: No Psychosocial: No Integumentary: Yes (hidradenitis) Blood Disorders: No Adverse Reaction/Blood Tranf: No Family Medical History Reviewed Nursing Family Hx Diabetes mellitus Maternal grandmother Paternal grandmother1 FHx: heart disease Maternal grandmother No Pertinent Family Hx Physical Exam Vital Signs Vital Signs - First Documented 03/13/18 16:39 Temp 98.6 Pulse 95 Resp 18 B/P (MAP) 144/82 (102) Pulse Ox 96 O2 Delivery Room Air Capillary Refill : Less Than 3 Seconds General Appearance: WD/WN, no apparent distress Cardiovascular: normal peripheral pulses, regular rate, rhythm, no edema, no gallop, no JVD, no murmur Respiratory: chest non-tender, lungs clear, normal breath sounds, no respiratory distress, no accessory muscle use Gastrointestinal: normal bowel sounds, non tender, soft, no organomegaly, no pulsatile mass Neurologic/Psychiatric: alert, normal mood/affect, oriented x 3 Skin Problem Location: other (left lower abdomen) Skin Problem Character: erythema, tenderness, other (6 cm in diameter area of erythema and induration with a central punctum of 2 cm x 2 cm.) Procedures/Interventions I&D : Site: left lower abdomen Blade Size: 11 I & D Procedure: betadine prep, sterile drapes applied Progress Anesthetized with 4 mL of 1% lidocaine without epinephrine. Open with a 1 cm incision using an 11 blade scalpel. A moderate amount of purulent material was expressed. Culture collected and sent to lab. Wound cavity then irrigated with Betadine/saline solution. Dressing applied. Progress/Results/Core Measures Results/Orders My Orders Orders - LAKSHMI HENDERSON Lidocaine 1% Inj 20 Ml (Xylocaine 1% Inj (03/13/18 17:00) Ceftriaxone For Im Use (Rocephin For Im (03/13/18 17:00) Ceftriaxone For Iv Use (Rocephin For I (03/13/18 17:11) Wound Culture (03/13/18 17:47) Medications Given in ED Current Medications Medications Dose Ordered Sig/Kyler Route Start Time Stop Time Status Last Admin Dose Admin Lidocaine HCl 20 ml ONCE ONCE INJ 03/13/18 17:00 03/13/18 17:01 DC 03/13/18 17:32 20 ML Vital Signs/I&O 03/13/18 03/13/18 16:39 17:50 Temp 98.6 98.6 Pulse 95 95 Resp 18 18 B/P (MAP) 144/82 (102) 144/82 (102) Pulse Ox 96 96 O2 Delivery Room Air Blood Pressure Mean: 102 Progress Progress Note : Time: 17:00 Progress Note I have seen and evaluated the patient. Clindamycin has been prescribed. She is taking in the past and seemed to work well. She agreed with plans for discharge , return precautions were given. Departure Impression Primary Impression: Hidradenitis suppurativa Additional Impressions: Abscess Cellulitis Disposition: HOME, SELF-CARE Condition: Stable/Unchanged Departure-Patient Inst. Decision time for Depature: 17:33 Referrals: [facility] (PCP/Family) Primary Care Physician Patient Instructions: Skin Abscess Add. Discharge Instructions: Take medication as directed. Follow up with [facility] within 1 week for recheck. Call first thing tomorrow morning for an appointment time. Return back to emergency room for any worsening symptoms or concerns as needed. You may use ibuprofen and Tylenol as directed by the bottle for pain. All discharge instructions reviewed with patient and/or family. Voiced understanding. Scripts Clindamycin HCl (Clindamycin HCl) 300 Mg Capsule 300 MG PO BID for 7 Days, #14 CAP Prov: LAKSHMI HENDERSON 03/13/18 LAKSHMI HENDERSON Mar 13, 2018 17:03
[2018-03-13] MEDS ORDERED: cefTRIAXone 1 GM/10 ML for IV (ROCEPHIN) IV ONE (17:11)
[2018-03-13] MEDS ORDERED: CLIN300C11 PO (17:35)
[2018-03-13 17:50] VITALS: BP 144/82
== END 2018-03-13 17:50 | disposition home or self-care (01) ==
LOC: EDUNIT# 16:37 → ER 16:38
DX: L73.2 Hidradenitis suppurativa (principal); L02.211 Cutaneous abscess of abdominal wall; L03.311 Cellulitis of abdominal wall; Z88.2 Allergy status to sulfonamides; Z86.14 Personal history of Methicillin resistant Staphylococcus aureus infection; Z90.89 Acquired absence of other organs; Z87.448 Personal history of other diseases of urinary system; Z82.49 Family history of ischemic heart disease and other diseases of the circulatory system
CPT/HCPCS: 10160; 87070; 87077; 87205; 96372

== ENCOUNTER 2018-09-02 21:32 | Emergency (ER) | payer SELFPAY ==
[~2018-09-02] VITALS: Ht 160 cm; Wt 81.6 kg
[~2018-09-02 21:32] MED LIST changes: +METR-145 PO; -METR500T21 PO
--- NOTE | 2018-09-02 21:51 | ED General ---
General Chief Complaint: General Problems/Pain Stated Complaint: SWELLING, LOWER BACK PAIN Nursing Triage Note: complaint of extremity tightness, pain. lower back pain. Nursing Sepsis Screen: No Definite Risk Source of Information: Patient Exam Limitations: No Limitations History of Present Illness Date Seen by Provider: Sep 02, 2018 Time Seen by Provider: 21:49 Initial Comments To ER with a 3 week history of swelling and a tight painful sensation in both hands and both feet. She also has had a several month history of midline low back pain that radiates down the right thigh laterally, and more recently it's begun to spread medially. No loss of bowel or bladder control, no fevers or chills, no dysuria. Concerned about "infection" secondary to hidradenitis suppurativa, she does not have any abscesses now but she has some nausea . Severity: Moderate Associated Systoms: No Fever/Chills, No Headaches, No Nausea/Vomiting Allergies and Home Medications Allergies Coded Allergies: Sulfa (Sulfonamide Antibiotics) (Verified Allergy, Unknown, 05/04/16) Home Medications Clindamycin HCl 300 Mg Capsule, 300 MG PO BID Prescribed by: VALDEZ SCHAEFER on 12/12/172005 Clindamycin HCl 300 Mg Capsule, 300 MG PO BID Prescribed by: LAKSHMI HENDERSON on 03/13/18 173 Doxycycline Monohydrate 100 Mg Tablet, 100 MG PO BID Prescribed by: RADHA SANDERS on 09/02/182240 Hydrochlorothiazide 25 Mg Tablet, 25 MG PO DAILY Prescribed by: RADHA SANDERS on 09/02/182240 Patient Home Medication List Home Medication List Reviewed: Yes Review of Systems Review of Systems Constitutional: see HPI EENTM: see HPI Respiratory: no symptoms reported; No short of breath Cardiovascular: no symptoms reported Genitourinary: no symptoms reported Musculoskeletal: no symptoms reported Skin: no symptoms reported Psychiatric/Neurological: No Symptoms Reported Hematologic/Lymphatic: No Symptoms Reported Past Vjlgyuh-Itgyev-Tbkexc Hx Patient Social History Alcohol Use: Denies Use Number of Drinks Today: FF Alcohol Beverage of Choice: Vodka Recreational Drug Use: Yes (SMOKES CIGARETTES) Smoking Status: Current Everyday Smoker Type Used: Cigarettes Recent Foreign Travel: No Contact w/Someone Who Travel: No Recent Infectious Disease Expo: No Recent Hopitalizations: Yes (Jun MRSA INFECTION) Immunizations Up To Date Tetanus Booster (TDap): Unknown PED Vaccines UTD: Yes Seasonal Allergies Seasonal Allergies: No Past Medical History Surgeries: Yes (I&D of abscesses) Orthopedic, Tonsillectomy Respiratory: No Currently Using BIPAP: No Cardiac: No Neurological: No Reproductive Disorders: Yes Female Reproductive Disorders: Polycystic Ovarian Dis Sexually Transmitted Disease: No HIV/AIDS: No Genitourinary: No UTI-Chronic Gastrointestinal: No Musculoskeletal: Yes Fractures Endocrine: No Loss of Vision: Denies Hearing Impairment: Denies Cancer: No Psychosocial: No Integumentary: Yes (hidradenitis) Blood Disorders: No Adverse Reaction/Blood Tranf: No Family Medical History Diabetes mellitus Maternal grandmother Paternal grandmother1 FHx: heart disease Maternal grandmother No Pertinent Family Hx Physical Exam Vital Signs Vital Signs - First Documented 09/02/18 21:42 Temp 97.8 Pulse 108 Resp 18 B/P (MAP) 137/112 (120) Pulse Ox 100 O2 Delivery Room Air Capillary Refill : Less Than 3 Seconds Height, Weight, BMI Height: 5'3.00" Weight: 180lbs. 3.1oz. [id number]; 50.0 BMI Method:Estimated General Appearance: No Apparent Distress, WD/WN, Obese Eyes: Bilateral Eye Normal Inspection, Bilateral Eye PERRL, Bilateral Eye EOMI HEENT: PERRL/EOMI, TMs Normal Neck: Full Range of Motion, Normal Inspection Respiratory: No Accessory Muscle Use, No Respiratory Distress Cardiovascular: No Edema, Normal Peripheral Pulses, Other (borderline tachycardic rate of 101) Gastrointestinal: Normal Bowel Sounds, Non Tender, Soft Extremity: Normal Capillary Refill, Normal Inspection Neurologic/Psychiatric: Alert, Oriented x3 Skin: Normal Color, Warm/Dry Progress/Results/Core Measures Suspected Sepsis Recent Fever Within 48 Hours: No Infection Criteria Present: None New/Unexplained Altered Menta: No Sepsis Screen: No Definite Risk SIRS Temperature:97.8 Pulse: 108 Respiratory Rate: 18 Laboratory Tests 09/02/18 21:48: White Blood Count 14.8H Blood Pressure 137 /112 Mean: 120 Laboratory Tests 09/02/18 21:48: Creatinine 0.79, Platelet Count 367, Total Bilirubin 0.9 Results/Orders Lab Results Laboratory Tests Test 09/02/18 21:48 09/02/18 21:50 Range/Units White Blood Count 14.8 H 4.3-11.0 10^3/uL Red Blood Count 5.11 4.35-5.85 10^6/uL Hemoglobin 17.8 H 11.5-16.0 G/DL Hematocrit 52 35-52 % Mean Corpuscular Volume 102 H 80-99 FL Mean Corpuscular Hemoglobin 35 H 25-34 PG Mean Corpuscular Hemoglobin Concent 34 32-36 G/DL Red Cell Distribution Width 12.4 10.0-14.5 % Platelet Count 367 130-400 10^3/uL Mean Platelet Volume 9.6 7.4-10.4 FL Neutrophils (%) (Auto) 63 42-75 % Lymphocytes (%) (Auto) 29 12-44 % Monocytes (%) (Auto) 6 0-12 % Eosinophils (%) (Auto) 1 0-10 % Basophils (%) (Auto) 0 0-10 % Neutrophils # (Auto) 9.4 H 1.8-7.8 X 10^3 Lymphocytes # (Auto) 4.3 H 1.0-4.0 X 10^3 Monocytes # (Auto) 0.9 0.0-1.0 X 10^3 Eosinophils # (Auto) 0.2 0.0-0.3 10^3/uL Basophils # (Auto) 0.0 0.0-0.1 10^3/uL Neutrophils % (Manual) 59 % Lymphocytes % (Manual) 30 % Monocytes % (Manual) 8 % Eosinophils % (Manual) 2 % Basophils % (Manual) 1 % Band Neutrophils 0 % Macrocytosis SLIGHT Sodium Level 137 135-145 MMOL/L Potassium Level 4.3 3.6-5.0 MMOL/L Chloride Level 103 98-107 MMOL/L Carbon Dioxide Level 22 21-32 MMOL/L Anion Gap 12 5-14 MMOL/L Blood Urea Nitrogen 9 7-18 MG/DL Creatinine 0.79 0.60-1.30 MG/DL Estimat Glomerular Filtration Rate > 60 BUN/Creatinine Ratio 11 Glucose Level 132 H 70-105 MG/DL Calcium Level 10.3 H 8.5-10.1 MG/DL Corrected Calcium 8.5-10.1 MG/DL Total Bilirubin 0.9 0.1-1.0 MG/DL Aspartate Amino Transf (AST/SGOT) 53 H 5-34 U/L Alanine Aminotransferase (ALT/SGPT) 42 0-55 U/L Alkaline Phosphatase 45 40-136 U/L Total Protein 7.9 6.4-8.2 GM/DL Albumin 4.9 H 3.2-4.5 GM/DL Thyroid Stimulating Hormone (TSH) 0.73 0.35-4.94 UIU/ML Free Thyroxine 0.98 0.70-1.48 NG/DL Serum Test, Qualitative NEGATIVE NEGATIVE Urine Color YELLOW Urine Clarity SLIGHTLY CLOUDY Urine pH 6 5-9 Urine Specific [place] 1.015 L 1.016-1.022 Urine Protein NEGATIVE NEGATIVE Urine Glucose (UA) NEGATIVE NEGATIVE Urine Ketones NEGATIVE NEGATIVE Urine Nitrite NEGATIVE NEGATIVE Urine Bilirubin NEGATIVE NEGATIVE Urine Urobilinogen NORMAL NORMAL MG/DL Urine Leukocyte Esterase 3+ H NEGATIVE Urine RBC (Auto) NEGATIVE NEGATIVE Urine RBC NONE /HPF Urine WBC 10-25 H /HPF Urine Squamous Epithelial Cells 10-25 H /HPF Urine Crystals NONE /LPF Urine Bacteria FEW H /HPF Urine Casts NONE /LPF Urine Mucus NEGATIVE /LPF Urine Culture Indicated YES My Orders Orders - RADHA SANDERS APRN Cbc With Automated Diff (09/02/18 21:46) Hcg,Qualitative Serum (09/02/18 21:46) Comprehensive Metabolic Panel (09/02/18 21:46) Ua Culture If Indicated (09/02/18 21:46) Thyroid Stimulating Hormone (09/02/18 21:46) Free T4 (Free Thyroxine) (09/02/18 21:46) Ketorolac Injection (Toradol Injection) (09/02/18 22:00) Metoprolol Tartrate Injection (Lopressor (09/02/18 22:00) Manual Differential (09/02/18 21:48) BNP (09/02/18 22:19) Urine Culture (09/02/18 21:50) Ondansetron Oral Dissolve Tab (Zofran (09/02/18 22:45) Doxycycline Hyclate Tablet (Vibramycin T (09/02/18 22:45) Medications Given in ED Current Medications Medications Dose Ordered Sig/Kyler Route Start Time Stop Time Status Last Admin Dose Admin Ketorolac Tromethamine 15 mg ONCE ONCE IVP 09/02/18 22:00 09/02/18 22:01 DC 09/02/18 21:57 15 MG Metoprolol Tartrate 5 mg ONCE ONCE IV 09/02/18 22:00 09/02/18 22:01 DC 09/02/18 21:56 5 MG Vital Signs/I&O 09/02/18 21:42 Temp 97.8 Pulse 108 Resp 18 B/P (MAP) 137/112 (120) Pulse Ox 100 O2 Delivery Room Air Capillary Refill : Less Than 3 Seconds Blood Pressure Mean: 120 Departure Impression Primary Impression: Hypertension Qualified Codes: I10 - Essential (primary) hypertension Additional Impressions: Peripheral edema Lumbar radiculopathy Leukocytosis Qualified Codes: D72.829 - Elevated white blood cell count, unspecified History of hidradenitis suppurativa UTI (urinary tract infection) Qualified Codes: N30.00 - Acute cystitis without hematuria Disposition: HOME, SELF-CARE Condition: Stable Departure-Patient Inst. Decision time for Depature: 22:37 Referrals: JUVENCIO CALDERA DO [facility] (PCP/Family) Primary Care Physician DOMI RODAS MD, HOLLY R MD Patient Instructions: General (DC) Add. Discharge Instructions: 1. Call one of the physicians listed on Wednesday morning to make an appointment to be seen next week to follow up on the blood pressure, swelling in her hands and feet and to schedule an MRI to further evaluate your back pain 2. Return to ER for any concerns 3. All discharge instructions reviewed with patient and/or family. Voiced understanding. Scripts Prednisone (Prednisone) 20 Mg Tab 40 MG PO DAILY, #8 TAB Prov: RADHA SANDERS APRN 09/02/18 Hydrochlorothiazide (Hydrochlorothiazide) 25 Mg Tablet 25 MG PO DAILY, #20 TAB Prov: RADHA SANDERS APRN 09/02/18 Doxycycline Monohydrate (Doxycycline Monohydrate) 100 Mg Tablet 100 MG PO BID, #14 TAB Prov: RADHA SANDERS APRN 09/02/18 Work/School Note: Work Release Form Date Seen in the Emergency Department: Sep 02, 2018 Return to Work: Sep 04, 2018 RADHA SANDERS APRN Sep 02, 2018 21:50
[2018-09-02 21:54] LABS: BASOPHILS % (AUTO) 0 % (0-10); EOSINOPHILS # (AUTO) 0.2 10^3/uL (0.0-0.3); EOSINOPHILS % (AUTO) 1 % (0-10); HEMATOCRIT 52 % (35-52); HEMOGLOBIN 17.8 G/DL (11.5-16.0); LYMPHOCYTES # (AUTO) 4.3 X 10^3 (1.0-4.0); LYMPHOCYTES % (AUTO) 29 % (12-44); MEAN CORPUSCULAR HEMOGLOBIN 35 PG (25-34); MEAN CORPUSCULAR HGB CONC 34 G/DL (32-36); MEAN CORPUSCULAR VOLUME 102 FL (80-99); MEAN PLATELET VOLUME 9.6 FL (7.4-10.4); MONOCYTES # (AUTO) 0.9 X 10^3 (0.0-1.0); MONOCYTES % (AUTO) 6 % (0-12); NEUTROPHILS # (AUTO) 9.4 X 10^3 (1.8-7.8); NEUTROPHILS % (AUTO) 63 % (42-75); PLATELET COUNT 367 10^3/uL (130-400); RED CELL DISTRIBUTION WIDTH 12.4 % (10.0-14.5); WHITE BLOOD COUNT 14.8 10^3/uL (4.3-11.0)
[2018-09-02] MEDS ORDERED: meTOprolol 5 MG/5 ML (LOPRESSOR) VIAL IV ONE (22:00)
[2018-09-02] MEDS ORDERED: KETOROLAC 30 MG/ML VIAL IVP ONE (22:00)
[2018-09-02 22:06] LABS: BILIRUBIN,URINE NEGATIVE (NEGATIVE); CLARITY,URINE SLIGHTLY CLOUDY; COLOR,URINE YELLOW; GLUCOSE, URINE (UA) NEGATIVE (NEGATIVE); KETONES,URINE NEGATIVE (NEGATIVE); LEUKOCYTE ESTERASE ,URINE 3+ (NEGATIVE); NITRITE,URINE NEGATIVE (NEGATIVE); PH,URINE 6 (5-9); PROTEIN,URINE NEGATIVE (NEGATIVE); UROBILINOGEN,URINE NORMAL (NORMAL)
[2018-09-02 22:10] LABS: BAND NEUTROPHILS 0 %; BASOPHILS % (MANUAL) 1 %; EOSINOPHILS % (MANUAL) 2 %; LYMPHOCYTES % (MANUAL) 30 %; MONOCYTES % (MANUAL) 8 %; NEUTROPHILS % (MANUAL) 59 %
[2018-09-02 22:18] LABS: ALANINE AMINOTRANSFERASE 42 U/L (0-55); ALBUMIN 4.9 GM/DL (3.2-4.5); ALKALINE PHOSPHATASE 45 U/L (40-136); BILIRUBIN,TOTAL 0.9 MG/DL (0.1-1.0); BUN/CREATININE RATIO 11; CALCIUM 10.3 MG/DL (8.5-10.1); CARBON DIOXIDE 22 MMOL/L (21-32); CHLORIDE 103 MMOL/L (98-107); CREATININE SERUM 0.79 MG/DL (0.60-1.30); GFR ESTIMATED > 60; GLUCOSE 132 MG/DL (70-105); POTASSIUM 4.3 MMOL/L (3.6-5.0); SODIUM 137 MMOL/L (135-145); TOTAL PROTEIN 7.9 GM/DL (6.4-8.2)
[2018-09-02 22:38] LABS: FREE T4 (FREE THYROXINE) 0.98 NG/DL (0.70-1.48)
[2018-09-02 22:38] LABS: BACTERIA,URINE FEW /HPF
[2018-09-02] MEDS ORDERED: HYDR25TA4 PO (22:41)
[2018-09-02] MEDS ORDERED: DOXY100T19 PO (22:41)
[2018-09-02] MEDS ORDERED: ONDANSETRON 4 MG (ZOFRAN) ORAL DISSOLVE TAB PO ONE (22:45)
[2018-09-02] MEDS ORDERED: DOXYCYCLINE 100 MG (VIBRAMYCIN) TABLET PO SCH (22:45)
[2018-09-02] MEDS ORDERED: PRD20T PO (22:51)
[2018-09-02 22:56] VITALS: BP 137/112
--- OUTSIDE RECORDS SUMMARY | 2018-09-04 10:12 | XMS REPORT ---
Author Author ERICA VUONG Organization [facility] Address [address] [place] [address] Care Team Providers Care Striper Name Role Phone ERICA VUONG Unavailable PROBLEMS Type Condition ICD9-CM Code YNB64-GM Code Onset Dates Condition Status SNOMED Code Problem Sciatica of left side M54.32 Active 63159061 Problem Skin infection L08.9 Active 316945079 Problem High risk heterosexual behavior Z72.51 Active 904531896 Problem General medical exam Z00.00 Active 681721658 Problem Dysuria R30.0 Active 00624930 ALLERGIES Substance Reaction Event Type Date Status Sulfamethoxazole-Trimethoprim rash Drug Allergy Dec, Active Cephalexin Unknown Drug Allergy Dec, Active ENCOUNTERS Encounter Location Date Diagnosis [facility] [id number] [place] [address] 92930- 4900 Dec, Low back pain M54.5 ; Sciatica of left side M54.32 ; Screening for diabetes mellitus Z13.1 ; Screening for hyperlipidemia Z13.220 ; Screening for other and unspecified deficiency anemia Z13.0 ; Chronic fatigue R53.82 and Elevated blood pressure reading R03.0 [facility] [id number] [place] [address] 11008- 2879 Sep, Acute suppurative otitis media of both ears without spontaneous rupture of tympanic membranes, recurrence not specified H66.003 ; Cutaneous abscess of abdominal wall L02.211 ; Cutaneous abscess of left lower limb L02.416 ; Seasonal allergic rhinitis, unspecified trigger J30.2 and BMI 45.0-49.9, adult Z68.42 [facility] [id number] [place] [address]16 -[address]386 Sep, Sore throat J02.9 ; Seasonal allergic rhinitis, unspecified trigger J30.2 and BMI 45.0-49.9, adult Z68.42 [place] [id number] [place] [address] 79382- 7666 Jul, [place] [id number] [place] [address] 50074- 1590 Jun, 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 [place] [id number] [place] [address] 46630- 0296 Jun, Routine screening for STI (sexually transmitted infection) Z11.3 ; BMI 45.0-49.9, adult Z68.42 ; 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 [place] [id number] [place] [address] 82306- 3747 Dec, Folliculitis L73.9 [place] [id number] [place] [address] 81294- 1056 Oct, [place] [id number] [place] [address] 23069- 6332 Oct, [place] [id number] [place] [address] 24704- 6392 Oct, General medical exam Z00.00 ; High risk heterosexual behavior Z72.51 ; History of female hirsutism Z87.898 ; Dysuria R30.0 and Skin infection L08.9 [place] [id number] [place] [address] 07487- 3049 18 May, 2015 Irregular menses 626.4 [place] [id number] [place] [address] 02425- 5157 11 May, 2015 Lower abdominal pain R10.30 ; History of female hirsutism Z87.898 ; Irregular menses N92.6 ; History of ovarian cyst Z87.42 ; History of chlamydia Z86.19 and Pain with urination R30.9 [place] [id number] [place] [address] 94779- 0938 29 Mar, 2015 [facility] [id number] [place] [address] 01742- 4615 Mar, Metrorrhagia 626.6 and Irregular menses 626.4 [facility] [id number] [place] [address] 43972- 1648 Mar, Irregular menses 626.4 ; Hirsutism 704.1 ; Vaginitis 616.10 and Metrorrhagia 626.6 [facility] [id number] [place] [address] 60196- 8562 Jan, Muscle pain 729.1 [facility] [id number] [place] [address] 24823- 2905 Oct, [facility] [id number] [place] [address] 19150- 8113 Oct, [facility] [id number] [place] [address] 48471- 6406 Jun, [facility] [id number] [place] [address] 83250- 9826 Jun, [facility] [id number] [place] [address] 40946- 8525 Jun, [facility] [id number] [place] [address] 16622- 0148 Jun, [facility] [id number] [place] [address] 85997- 4584 Jun, [facility] [id number] [place] [address] 68669- 0656 Mar, [facility] [id number] [place] [address] 08283- 0999 Mar, [facility] [id number] [place] [address] 97541- 9341 Feb, [facility] [id number] [place] [address] 61960- 2919 Feb, [facility] [place] [facility] [address] [id number] [place] [address]- 8300 Feb, [facility] [place] [facility] [address] [id number] [place] [address]- 5515 Feb, [facility] [place] [facility] [address] [id number] [place] [address]- 9398 Feb, [facility] [place] [facility] [address] [id number] [place] [address]- 1295 Feb, [facility] [place] [facility] [address] [id number] [place] [address]- 0991 Feb, [facility] [place] [facility] [address] [id number] [place] [address]- 8448 Feb, [facility] [place] [facility] [address] [id number] [place] [address]- 1347 Oct, [facility] [place] [facility] [address] [id number] [place] [address]- 7459 Oct, [facility] [place] [facility] [address] [id number] [place] [address]- 0620 Oct, [facility] [place] [facility] [address] [id number] [place] [address]- 9340 Oct, [facility] [place] [facility] [address] [id number] [place] [address]- 0770 Oct, [facility] [place] [facility] [address] [id number] [place] [address]- 7855 Oct, [facility] [place] [facility] [address] [id number] [place] [address]- 4417 Oct, [facility] [place] [facility] [address] [id number] [place] [address]- 4481 Jun, [facility] [place] [facility] [address] [id number] [place] [address]- 1432 Jun, [facility] [place] [facility] [address] [id number] [place] [address]- 4057 Jun, [facility] [address] [id number] [place] [address]- 9662 Jun, [facility] [address] [id number] [place] [address]- 9538 Jun, [facility] [address] [id number] [place] [address]- 0106 Jun, [facility] [address] [id number] [place] [address]- 0780 Jun, [facility] [address] [id number] [place] [address]- 1139 Feb, [facility] [address] [id number] [place] [address]- 9479 Jan, [facility] [address] [id number] [place] [address]- 4196 Jan, [facility] [address] [id number] [place] [address]- 7701 Jan, [facility] [address] [id number] [place] [address]- 6804 Jan, [facility] [address] [id number] [place] [address]- 2031 November, [facility] [address] [id number] [place] [address]- 1144 Oct, [facility] [place] [facility] [address] [id number] [place] [address] 2547 Sep, [facility] [place] [facility] [address] [id number] [place] [address]- 2874 Aug, [facility] [place] [facility] [address] [id number] [place] [address]- 7899 Jul, [facility] [place] [facility] [address] [id number] [place] [address]- 0479 Jul, [facility] [place] [facility] [address] [id number] [place] [address]- 7975 Jul, [facility] [place] [facility] [address] [id number] [place] [address]- 7936 Jul, [facility] [place] [facility] [address] [id number] [place] [address]- 4126 Jul, [facility] [place] [facility] [address] [id number] [place] [address]- 8506 Jul, [facility] [place] [facility] [address] [id number] [place] [address]- 8000 Jun, [facility] [place] [facility] [address] [id number] [place] [address]- 3079 Jun, [facility] [place] [facility] [address] [id number] [place] [address]- 7180 Jun, [facility] [place] [facility] [address] [id number] [place] [address]- 2553 Jun, [facility] [place] [facility] [address] [id number] [place] [address]- 0995 Jun, [facility] [place] [facility] [address] [id number] [place] [address]- 6878 Jun, [facility] [place] [facility] [address] [id number] [place] [address]- 0253 Jun, [facility] [place] [facility] [address] [id number] [place] [address]- 2866 Apr, [facility] [place] [facility] [address] [id number] [place] [address]- 7456 Apr, [facility] [place] [facility] [address] [id number] [place] [address]- 1226 Apr, [facility] [place] [facility] [address] [id number] [place] [address]- 5996 Apr, [facility] [place] [facility] [address] [id number] [place] [address]- 4906 Apr, [facility] [place] [facility] [address] [id number] [place] [address]- 6831 Apr, [facility] [place] [facility] [address] [id number] [place] [address]- 3286 27 Mar, 2012 [facility] [place] [facility] [address] [id number] [place] [address]21 19 Mar, 2012 [facility] [place] [facility] [address] [id number] [place] [address]- 4248 14 Mar, 2012 [facility] [place] [facility] [address] [id number] [place] [address]- 4812 07 Mar, 2012 [facility] [place] [facility] [address] [id number] [place] [address]- 2325 06 Mar, 2012 [facility] [place] [facility] [address] [id number] [place] [address]- 4724 05 Mar, 2012 [facility] [place] [facility] [address] [id number] [place] [address]- 8756 Feb, [facility] [place] [facility] [address] [id number] [place] [address]- 2713 Feb, [facility] [place] [facility] [address] [id number] [place] [address]- 1087 Feb, [facility] [place] [facility] [address] [id number] [place] [address]- 7175 Jan, [facility] [place] [facility] [address] [id number], [place] [address]- 8342 Jan, [facility] [place] [facility] [address] [id number] [place] [address]- 7365 November, [facility] [place] [facility] [address] [id number] [place] [address]- 1803 November, [facility] [place] [facility] [address] [id number] [place] [address]- 2346 November, [facility] [place] [facility] [address] [facility] [id number], [place] [address]- 0876 Aug, [facility] [address] [facility] [id number], [place] [address]- 5306 Jul, [facility] [address] [facility] [id number], [place] [address]- 7506 Jun, [facility] [address] [facility] [id number], [place] [address]- 8286 Jun, [facility] [address] [facility] [id number], [place] [address]- 0166 Apr, [facility] [address] [facility] [id number], [place] [address]- 5886 Apr, [facility] [address] [facility] [id number], [place] [address]- 6836 Apr, [facility] [address] [address]- 2176 Apr, [facility] [address] [facility] [id number], [place] [address]- 3262 Mar, [facility] [id number] [address]- 3046 Feb, [facility] [address] [id number], [place] [address]- 7216 Dec, [facility] [address] [id number], [place] [address]- 8236 Jan, [facility] [address] [facility] [id number], [place] [address]- 0455 May, [facility] [address] [id number], [place] [address]- 8129 May, IMMUNIZATIONS No Known Immunizations SOCIAL HISTORY Never Assessed REASON FOR VISIT kidney infection Pt c/o lower back pain for several months along with fatigue feels she may have a kidney infection MARGARET [place] PLAN OF CARE Activity Details Follow Up 2-4 weeks if not better or as indicated by labs Reason:back pain VITAL SIGNS Height 64 in 2017-12-28 Weight 285.4 lbs 2017-12-28 Temperature 99.0 degrees Fahrenheit 2017-12-28 Heart Rate 94 bpm 2017-12-28 Respiratory Rate 20 2017-12-28 BMI 48.98 kg/m2 2017-12-28 Blood pressure systolic 144 mmHg 2017-12-28 Blood pressure diastolic 86 mmHg 2017-12-28 MEDICATIONS Medication Instructions Dosage Frequency Start Date End Date Duration Status Naproxen 500 mg Orally every 12 hrs 1 tablet with food or milk as needed 12h Dec, Jan, 14 days Active RESULTS No Results PROCEDURES Procedure Date Ordered Result Body Site URINALYSIS, AUTO, W/O SCOPE December 28, 2017 COMPREHEN METABOLIC PANEL December 28, 2017 LIPID PANEL December 28, 2017 Hemoglobin Test Send Out 0 dollar December 28, 2017 ASSAY THYROID STIM HORMONE December 28, 2017 COMPLETE CBC W/AUTO DIFF WBC December 28, 2017 INSTRUCTIONS MEDICATIONS ADMINISTERED No Known Medications MEDICAL (GENERAL) HISTORY Type Description Date Medical History hypertension Medical History anxiety Surgical History left humerus has plate and 7 screws Surgical History tonsillectomy and adenoidectomy- age 9
--- OUTSIDE RECORDS SUMMARY | 2018-09-04 10:13 | XMS REPORT ---
Author Author HANSA HOFFMANN [facility] Address [address] [place] [address] Care Team Providers Care Tugboat Operator Name Role Phone HANSA HOFFMANN Unavailable PROBLEMS Type Condition ICD9-CM Code [id number] Code Onset Dates Condition Status SNOMED Code Problem Dysuria R30.0 Active 91294847 Problem High risk heterosexual behavior Z72.51 Active 074191252 Problem Skin infection L08.9 Active 793796548 Problem General medical exam Z00.00 Active 147315388 ALLERGIES No Information ENCOUNTERS Encounter Location Date Diagnosis [facility] [id number] [place] [address] Sep, Acute suppurative otitis media of both ears without spontaneous rupture of tympanic membranes, recurrence not specified H66.003 ; Cutaneous abscess of abdominal wall L02.211 ; Cutaneous abscess of left lower limb L02.416 ; Seasonal allergic rhinitis, unspecified trigger J30.2 and BMI 45.0-49.9, adult Z68.42 [facility] [id number] [place] [address] Sep, Sore throat J02.9 ; Seasonal allergic rhinitis, unspecified trigger J30.2 and BMI 45.0-49.9, adult Z68.42 [facility] [id number] [place] [address]3052- 5210 Jul, [facility] [id number] [place] [address]6101- 4143 Jun, 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 [facility] [id number] [place] [address] 16386- 9334 Jun, Routine screening for STI (sexually transmitted infection) Z11.3 ; BMI 45.0-49.9, adult Z68.42 ; 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 [place] [address] [address]- [address] Dec, Folliculitis L73.9 [place] [id number] [place] [address] 00609- 8138 Oct, [place] [address] [address] Oct, [place] [address] [address]- [address] Oct, General medical exam Z00.00 ; High risk heterosexual behavior Z72.51 ; History of female hirsutism Z87.898 ; Dysuria R30.0 and Skin infection L08.[address] [address]- [address] May, Irregular menses 626.4 [place] [address] 7[address]- 5953 11 May, 2015 Lower abdominal pain R10.30 ; History of female hirsutism Z87.898 ; Irregular menses N92.6 ; History of ovarian cyst Z87.42 ; History of chlamydia Z86.19 and Pain with urination R30.9 [place] [id number] [place] [address]- 1985 Mar, [place] [address] [address]- [address] 28 Mar, 2015 Metrorrhagia 626.6 and Irregular menses 626.[address] [address]- [address]69 Mar, Irregular menses 626.4 ; Hirsutism 704.1 ; Vaginitis 616.10 and Metrorrhagia 626.6 [place] [address] 3[address]- 78[address] Jan, Muscle pain 729.1 [facility] [place] [facility] [address] [id number] [place] [address]15 14 Oct, 2014 [facility] [place] [facility] [address] [id number] [place] [address] 3460 Oct, [facility] [address] [id number] [place] [address] 7532 Jun, [facility] [place] [facility] [address] [id number] [place] [address]- 6364 Jun, [facility] [place] [facility] [address] [id number] [place] [address]- 5569 Jun, [facility] [place] [facility] [address] [id number] [place] [address]- 8472 Jun, [facility] [address] [facility] [id number], [place] [address] 14[address] Jun, [facility] [place] [facility] [address] [id number], [place] [address] 8660 Mar, [facility] [place] [facility] [address] [id number] [place] [address]- 4418 Mar, [facility] [place] [facility] [address] [facility] [id number], [place] [address] 85[address] Feb, [facility] [place] [facility] [address] [id number], [place] [address] 9481 Feb, [facility] [place] [facility] [address] [id number], [place] [address] 2209 Feb, [facility] [place] [facility] [address] [id number], [place] [address] 5159 Feb, [facility] [place] [facility] [address] [facility] [id number], [place] [address]- 9356 Feb, [facility] [place] [facility] [address] [facility] [id number], [place] [address]- 6[address] Feb, [facility] [place] [facility] [address] [id number] [place] [address]- 6458 Feb, [facility] [place] [facility] [address] [id number] [place] [address]- 5272 Feb, [facility] [place] [facility] [address] [id number] [place] [address]- 1052 Oct, [facility] [place] [facility] [address] [id number] [place] [address]- 6329 Oct, [facility] [place] [facility] [address] [id number] [place] [address]- 9801 Oct, [facility] [place] [facility] [address] [id number] [place] [address]- 7737 Oct, [facility] [place] [facility] [address] [id number] [place] [address]- 9339 Oct, [facility] [place] [facility] [address] [id number] [place] [address]- 8265 Oct, [facility] [place] [facility] [address] [id number] [place] [address]- 4328 Oct, [facility] [place] [facility] [address] [id number] [place] [address]- 9624 Jun, [facility] [place] [facility] [address] [id number] [place] [address]- 5344 27 Jun, 2013 [facility] [place] [facility] [address] [id number] [place] [address]- 3640 17 Jun, 2013 [facility] [place] [facility] [address] [id number] [place] [address] 17 Jun, 2013 [facility] [place] [facility] [address] [id number] [place] [address]- 8653 16 Jun, 2013 [facility] [place] [facility] [address] [id number] [place] [address]- 4708 12 Jun, 2013 [facility] [place] [facility] [address] [id number] [place] [address] Jun, [facility] [address] [id number] [place] [address]- 4981 Feb, [facility] [address] [id number] [place] [address]- 2221 Jan, [facility] [address] [id number] [place] [address]- 9090 Jan, [facility] [address] [id number] [place] [address]- 6190 Jan, [facility] [address] [id number] [place] [address]- 6393 Jan, [facility] [address] [id number] [place] [address]- 8406 November, [facility] [address] [id number] [place] [address]- 4098 Oct, [facility] [address] [id number] [place] [address]- 6720 Sep, [facility] [address] [id number] [place] [address]- 4108 Aug, [facility] [place] [facility] [address] [id number] [place] [address]- 9384 Jul, [facility] [address] [id number] [place] [address]- 0722 Jul, [facility] [place] [facility] [address] [id number], [place] [address] 2542 Jul, [facility] [place] [facility] [address] [id number] [place] [address]- 0336 Jul, [facility] [place] [facility] [address] [id number] [place] [address]- 8946 Jul, [facility] [place] [facility] [address] [id number] [place] [address]- 2546 Jul, [facility] [place] [facility] [address] [id number] [place] [address] 27 Jun, 2012 [facility] [place] [facility] [address] [id number] [place] [address] 27 Jun, 2012 [facility] [place] [facility] [address] [id number] [place] [address] Jun, [facility] [place] [facility] [address] [id number] [place] [address]- 2336 08 Jun, 2012 [facility] [place] [facility] [address] [id number] [place] [address]- 1686 07 Jun, 2012 [facility] [place] [facility] [address] [id number] [place] [address]- 3203 Jun, [facility] [place] [facility] [address] [id number] [place] [address] Jun, [facility] [place] [facility] [address] [id number] [place] [address]- 7118 Apr, [facility] [place] [facility] [address] [id number] [place] [address]- 3628 Apr, [facility] [place] [facility] [address] [id number] [place] [address] Apr, [facility] [place] [facility] [address] [facility] [id number] [place] [address]- 9838 16 Apr, 2012 [facility] [place] [facility] [address] [id number] [place] [address]- 0593 Apr, [facility] [place] [facility] [address] [id number] [place] [address]- 7058 04 Apr, 2012 [facility] [place] [facility] [address] [id number] [place] [address]- 3580 27 Mar, 2012 [facility] [place] [facility] [address] [id number] [place] [address]- 9976 19 Sep2011 [facility] [place] [facility] [address] [id number] [place] [address]- 4916 14 Mar, 2012 [facility] [place] [facility] [address] [id number] [place] [address] 2545 07 Mar, 2012 [facility] [place] [facility] [address] [id number] [place] [address]- 3836 Mar, [facility] [place] [facility] [address] [id number] [place] [address]- 2546 Mar, [facility] [place] [facility] [address] [id number] [place] [address]- 7810 Feb, [facility] [address] [id number] [place] [address]- 7679 Feb, [facility] [place] [facility] [address] [id number] [place] [address]- 1206 Feb, [facility] [address] [id number] [place] [address]- 5743 Jan, [facility] [address] [id number] [place] [address]- 3660 Jan, [facility] [address] [id number] [place] [address]- 4800 November, [facility] [address] [id number] [place] [address]- 2556 November, [facility] [address] [id number] [place] [address]- 2546 November, [facility] [address] [id number] [place] [address]- 3493 Aug, [facility] [place] [facility] [address] [id number] [place] [address]- 3708 Jul, [facility] [place] [facility] [address] [id number] [place] [address]- 8066 Jun, [facility] [place] [facility] [address] [id number] [place] [address]- 2546 Jun, [facility] [place] [facility] [address] [id number], [place] [address]- 2546 Apr, [facility] [address] [address]- [address] Apr, [facility] [address] [place] [address]- 2546 Apr, [facility] [address] [place] [address]- 2546 Apr, [facility] [address] [address]- 2546 16 Mar, 2011 [facility] [address] [place] [address] 2546 Feb, [facility] [address] [place] [address] 2546 Dec, [facility] [address] [place] [address] 2546 Jan, [facility] [address] [place] [address]- 1006 May, [facility] [address] [place] [address]- 7337 May, IMMUNIZATIONS No Known Immunizations SOCIAL HISTORY Never Assessed REASON FOR VISIT Requests return call PLAN OF CARE VITAL SIGNS MEDICATIONS Medication Instructions Dosage Frequency Start Date End Date Duration Status Valacyclovir HCl 500 mg Orally twice a day 2 tablets 12h Jun, 07 days Active Diflucan 150 MG 1 tablet Jun, 1 dose Active RESULTS No Results PROCEDURES No Known procedures INSTRUCTIONS MEDICATIONS ADMINISTERED No Known Medications MEDICAL (GENERAL) HISTORY Type Description Date Medical History hypertension Medical History anxiety Surgical History left humerus has plate and 7 screws Surgical History tonsillectomy and adenoidectomy- age 9
--- OUTSIDE RECORDS SUMMARY | 2018-09-04 10:13 | XMS REPORT ---
Author Author ENDER Berg Organization [facility] Address [address] [place] [address] Care Team Providers Care Inspector Exhaust Emissions Name Role Phone ENDER Berg Unavailable PROBLEMS Type Condition ICD9-CM Code BNG64-OY Code Onset Dates Condition Status SNOMED Code Problem Sciatica of left side M54.32 Active 85821364 Problem Skin infection L08.9 Active 277711153 Problem High risk heterosexual behavior Z72.51 Active 143660911 Problem General medical exam Z00.00 Active 809866060 Problem Dysuria R30.0 Active 58062087 ALLERGIES Substance Reaction Event Type Date Status Sulfamethoxazole-Trimethoprim rash Drug Allergy Sep, Active Cephalexin Unknown Drug Allergy Sep, Active ENCOUNTERS Encounter Location Date Diagnosis [facility] [id number] [place] [address]- [address] Dec, Low back pain M54.5 ; Sciatica of left side M54.32 ; Screening for diabetes mellitus Z13.1 ; Screening for hyperlipidemia Z13.220 ; Screening for other and unspecified deficiency anemia Z13.0 ; Chronic fatigue R53.82 and Elevated blood pressure reading R03.0 [facility] [id number] [place] [address] Sep, Acute suppurative otitis media of both ears without spontaneous rupture of tympanic membranes, recurrence not specified H66.003 ; Cutaneous abscess of abdominal wall L02.211 ; Cutaneous abscess of left lower limb L02.416 ; Seasonal allergic rhinitis, unspecified trigger J30.2 and BMI 45.0-49.9, adult Z68.42 [facility] [id number] [place] [address] -[address] Sep, Sore throat J02.9 ; Seasonal allergic rhinitis, unspecified trigger J30.2 and BMI 45.0-49.9, adult Z68.42 [place] [address] [address] Jul, [place] [address] 81543- 8717 Jun, 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 [place] [address] [address]- [address]54 Jun, Routine screening for STI (sexually transmitted infection) Z11.3 ; BMI 45.0-49.9, adult Z68.42 ; 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19 and Pain with urination R30.[address] [address]- [address] Mar, [facility] [address] [address] Mar, Metrorrhagia 626.6 and Irregular menses 626.4 [facility] [id number] [place] [address] 222493- 1673 Mar, Irregular menses 626.4 ; Hirsutism 704.1 ; Vaginitis 616.10 and Metrorrhagia 626.6 [facility] [id number] [place] [address] 87780- 1406 Jan, Muscle pain 729.1 [facility] [id number] [place] [address] 45623- 1298 Oct, [facility] [id number] [place] [address] 63598- 5897 Oct, [facility] [id number] [place] [address] 93237- 8590 Jun, [facility] [id number] [place] [address] 54958- 9244 Jun, [facility] [id number] [place] [address] 21396- 0323 Jun, [facility] [id number] [place] [address] 53837- 3557 Jun, [facility] [id number] [place] [address] 44141- 1297 Jun, [facility] [id number] [place] [address] 191624- 2476 Mar, [facility] [id number] [place] [address] 687346- 2112 Mar, [facility] [id number] [place] [address] 59577- 9564 Feb, [facility] [id number] [place] [address] 51353- 3818 Feb, [facility] [place] [facility] [address] [id number] [place] [address]- 1879 Feb, [facility] [place] [facility] [address] [id number] [place] [address]- 2662 Feb, [facility] [place] [facility] [address] [id number] [place] [address]- 7326 Feb, [facility] [place] [facility] [address] [id number] [place] [address]- 7192 Feb, [facility] [place] [facility] [address] [id number] [place] [address]- 1165 Feb, [facility] [place] [facility] [address] [id number] [place] [address]- 1927 Feb, [facility] [place] [facility] [address] [id number] [place] [address]- 4132 Oct, [facility] [place] [facility] [address] [id number] [place] [address]- 9105 Oct, [facility] [place] [facility] [address] [id number] [place] [address]- 0065 Oct, [facility] [place] [facility] [address] [id number] [place] [address]- 2182 Oct, [facility] [place] [facility] [address] [id number] [place] [address]- 9443 Oct, [facility] [place] [facility] [address] [id number] [place] [address]- 0964 Oct, [facility] [place] [facility] [address] [id number] [place] [address]- 2888 Oct, [facility] [place] [facility] [address] [id number] [place] [address]- 0311 Jun, [facility] [place] [facility] [address] [id number] [place] [address]- 5484 Jun, [facility] [place] [facility] [address] [id number] [place] [address]- 2546 17 Jun, 2013 [facility] [address] [id number] [place] [address]- 6956 Jun, [facility] [address] [id number] [place] [address]- 2546 Jun, [facility] [address] [id number] [place] [address]- 2546 Jun, [facility] [address] [id number] [place] [address]- 2546 Jun, [facility] [address] [id number] [place] [address]- 2546 Feb, [facility] [address] [id number] [place] [address]- 2546 Jan, [facility] [address] [id number] [place] [address]- 4816 Jan, [facility] [address] [id number] [place] [address]- 8460 Jan, [facility] [address] [id number] [place] [address]- 6916 Jan, [facility] [address] [id number] [place] [address]- 2546 November, [facility] [address] [id number] [place] [address]- 2546 Oct, [facility] [address] [id number] [place] [address]- 2546 Sep, [facility] [address] [id number] [place] [address]- 2546 Aug, [facility] [address] [id number] [place] [address]- 2546 Jul, [facility] [address] [id number] [place] [address]- 6834 Jul, [facility] [place] [facility] [address] [id number] [place] [address]- 1857 Jul, [facility] [place] [facility] [address] [id number] [place] [address]- 6040 Jul, [facility] [place] [facility] [address] [id number] [place] [address]- 8251 Jul, [facility] [place] [facility] [address] [id number] [place] [address]- 4581 Jul, [facility] [place] [facility] [address] [id number] [place] [address]- 9488 Jun, [facility] [place] [facility] [address] [id number] [place] [address]- 0324 Jun, [facility] [place] [facility] [address] [id number] [place] [address]- 9425 Jun, [facility] [place] [facility] [address] [id number] [place] [address]- 9007 Jun, [facility] [place] [facility] [address] [id number] [place] [address]- 9787 Jun, [facility] [place] [facility] [address] [id number] [place] [address]- 8320 Jun, [facility] [place] [facility] [address] [id number] [place] [address]- 8560 Jun, [facility] [place] [facility] [address] [id number], [place] [address]- 6225 Apr, [facility] [place] [facility] [address] [id number] [place] [address]- 8279 Apr, [facility] [place] [facility] [address] [id number] [place] [address]- 9116 Apr, [facility] [place] [facility] [address] [id number] [place] [address]- 6263 Apr, [facility] [place] [facility] [address] [id number] [place] [address]- 8353 Apr, [facility] [address] [id number] [place] [address]- 1023 04 Apr, 2012 [facility] [place] [facility] [address] [id number] [place] [address]- 7372 27 Mar, 2012 [facility] [place] [facility] [address] [id number] [place] [address]- 5976 19 Mar, 2011 [facility] [place] [facility] [address] [id number] [place] [address]- 8073 14 Mar, 2011 [facility] [place] [facility] [address] [id number] [place] [address]- 4387 07 Mar, 2011 [facility] [place] [facility] [address] [id number] [place] [address]- 8470 06 Mar, 2012 [facility] [address] [id number] [place] [address]- 5257 05 Mar, 2012 [facility] [place] [facility] [address] [id number] [place] [address]- 2794 Feb, [facility] [place] [facility] [address] [id number] [place] [address]- 5429 Feb, [facility] [place] [facility] [address] [id number] [place] [address]- 1345 Feb, [facility] [place] [facility] [address] [id number] [place] [address]- 2691 Jan, [facility] [place] [facility] [address] [id number] [place] [address]- 1001 Jan, [facility] [place] [facility] [address] [id number] [place] [address]- 5924 November, [facility] [place] [facility] [address] [id number] [place] [address]- 9298 November, [facility] [place] [facility] [address] [id number] [place] [address]- 3368 November, [facility] [place] [facility] [address] [place] [address]- 6346 Aug, [facility] [address] [place] [address]- 9617 Jul, [facility] [address] [place] [address]- 4196 Jun, [facility] [id number] [place] [address] 32410- 3486 Jun, [facility] [address] [facility] [id number], [place] [address]- 5340 Apr, [facility] [id number] [place] [address] 89550- 8306 Apr, [facility] [id number] [address]- 1421 Apr, [facility] [id number] [place] [address] 87149- 0470 Apr, [facility] [address] [place] [address]- 7719 Mar, [facility] [address] [place] [address]- 7936 Feb, [facility] [address] [address]- 0461 Dec, [facility] [address] [place] [address]- 8046 Jan, [facility] [id number] [address]- 9218 May, [facility] [address] [address] May, IMMUNIZATIONS No Known Immunizations SOCIAL HISTORY Never Assessed REASON FOR VISIT ear c/o, cough, congestion x1 month----DBennettRN, bilateral ear pain started about 1 week ago PLAN OF CARE Activity Details Follow Up prn Reason: VITAL SIGNS Height 64 in 2017-09-29 Weight 282.5 lbs 2017-09-29 Temperature 98.7 degrees Fahrenheit 2017-09-29 Heart Rate 90 bpm 2017-09-29 Respiratory Rate 20 2017-09-29 BMI 48.49 kg/m2 2017-09-29 Blood pressure systolic 124 mmHg 2017-09-29 Blood pressure diastolic 82 mmHg 2017-09-29 MEDICATIONS Medication Instructions Dosage Frequency Start Date End Date Duration Status Flonase 50 MCG/ACT Nasally Once a day 1 spray in each nostril 24h Sep, 30 day(s) Active Mupirocin Calcium 2 % Externally Twice a day 1 application to affected area 12h Sep, Active Amoxicillin 500 mg Orally every 12 hrs 2 tablet 12h Sep, Oct, 10 days Active RESULTS No Results PROCEDURES No Known procedures INSTRUCTIONS MEDICATIONS ADMINISTERED No Known Medications MEDICAL (GENERAL) HISTORY Type Description Date Medical History hypertension Medical History anxiety Surgical History left humerus has plate and 7 screws Surgical History tonsillectomy and adenoidectomy- age 9
--- OUTSIDE RECORDS SUMMARY | 2018-09-04 10:13 | XMS REPORT ---
Author Author ESPOSITOOBIE Goncalves Organization [facility] Address [address] [place] [address] Care Team Providers Care Director Instructional Material Name Role Phone OBIE ESPOSITO Unavailable PROBLEMS Type Condition ICD9-CM Code OZJ19-MI Code Onset Dates Condition Status SNOMED Code Problem Dysuria R30.0 Active 03868993 Problem High risk heterosexual behavior Z72.51 Active 039540867 Problem Skin infection L08.9 Active 924726323 Problem General medical exam Z00.00 Active 761002477 ALLERGIES Substance Reaction Event Type Date Status Sulfamethoxazole-Trimethoprim rash Drug Allergy Jul, Active Cephalexin Unknown Drug Allergy Jul, Active ENCOUNTERS Encounter Location Date Diagnosis [facility] [id number] [place] [address] Sep, Acute suppurative otitis media of both ears without spontaneous rupture of tympanic membranes, recurrence not specified H66.003 ; Cutaneous abscess of abdominal wall L02.211 ; Cutaneous abscess of left lower limb L02.416 ; Seasonal allergic rhinitis, unspecified trigger J30.2 and BMI 45.0-49.9, adult Z68.42 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 [facility] [id number] [place] [address] 94358- 6139 Jun, Routine screening for STI (sexually transmitted infection) Z11.3 ; BMI 45.0-49.9, adult Z68.42 ; 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 [id number] [place] [address] 64[address]- 8722 Dec, Folliculitis L73.[address] [address]- [address] Oct, [address] [address]- [address] Oct, [address] [address]- [address]167 Oct, General medical exam Z00.00 ; High risk heterosexual behavior Z72.51 ; History of female hirsutism Z87.898 ; Dysuria R30.0 and Skin infection L08.[address] [address]- [address] May, Irregular menses 626.[address] [address]- [address] May, Lower abdominal pain R10.30 ; History of female hirsutism Z87.898 ; Irregular menses N92.6 ; History of ovarian cyst Z87.42 ; History of chlamydia Z86.19 and Pain with urination R30.9 [address] [place] [id number] [place] [address] 32374- 3116 Mar, [address] [address]- [address]20 Mar, Metrorrhagia 626.6 and Irregular menses 626.[address] [address]57- [address] Mar, Irregular menses 626.4 ; Hirsutism 704.1 ; Vaginitis 616.10 and Metrorrhagia 626.6 [facility] [place] [facility] [address] [id number] [place] [address] 1699 Jan, Muscle pain 729.1 [facility] [place] [facility] [address] [id number] [place] [address]66 14 Oct, 2014 [facility] [place] [facility] [address] [facility] [id number] [place] [address] Oct, [facility] [place] [facility] [address] [id number] [place] [address] 2740 Jun, [facility] [place] [facility] [address] [id number] [place] [address]- 1196 Jun, [facility] [place] [facility] [address] [id number] [place] [address]- 8107 Jun, [facility] [place] [facility] [address] [facility] [id number] [place] [address]- 4464 Jun, [facility] [place] [facility] [address] [id number] [place] [address]- 1638 Jun, [facility] [place] [facility] [address] [facility] [id number] [place] [address]- 6088 Mar, [facility] [place] [facility] [address] [facility] [id number] [place] [address]- 5648 Mar, [facility] [place] [facility] [address] [id number], [place] [address] 16[address] Feb, [facility] [place] [facility] [address] [id number], [place] [address] 0677 Feb, [facility] [place] [facility] [address] [id number] [place] [address]- 1856 Feb, [facility] [place] [facility] [address] [facility] [id number] [place] [address]- 6635 Feb, [facility] [place] [facility] [address] [facility] [id number] [place] [address]- 9985 Feb, [facility] [place] [facility] [address] [id number] [place] [address]- 2324 Feb, [facility] [address] [id number] [place] [address]- 0062 Feb, [facility] [address] [id number] [place] [address]- 3596 Feb, [facility] [address] [id number] [place] [address]- 0217 Oct, [facility] [address] [id number] [place] [address] 1944 Oct, [facility] [address] [id number] [place] [address]- 9215 Oct, [facility] [address] [id number] [place] [address]- 8572 Oct, [facility] [address] [id number] [place] [address]- 8822 Oct, [facility] [address] [id number] [place] [address]- 3583 Oct, [facility] [address] [id number] [place] [address]- 2546 Oct, [facility] [address] [id number] [place] [address]- 2046 Jun, [facility] [address] [id number] [place] [address]- 7747 27 Jun, 2013 [facility] [address] [id number] [place] [address]- 3075 17 Jun, 2013 [facility] [place] [facility] [address] [id number] [place] [address]- 6514 17 Jun, 2013 [facility] [place] [facility] [address] [id number] [place] [address]- 3720 16 Jun, 2013 [facility] [address] [id number] [place] [address]- 9052 Jun, [facility] [place] [facility] [address] [id number] [place] [address]- 1296 Jun, [facility] [address] [id number] [place] [address] 2546 Feb, [facility] [address] [id number] [place] [address]- 3827 Jan, [facility] [address] [id number] [place] [address] 2546 Jan, [facility] [address] [id number] [place] [address]- 4183 Jan, [facility] [address] [id number] [place] [address]- 2306 Jan, [facility] [address] [id number] [place] [address]- 5677 November, [facility] [address] [id number] [place] [address]- 5378 Oct, [facility] [address] [id number] [place] [address]- 3117 Sep, [facility] [address] [id number] [place] [address]- 9091 Aug, [facility] [address] [id number] [place] [address]- 1146 Jul, [facility] [place] [facility] [address] [id number] [place] [address]- 4624 Jul, [facility] [place] [facility] [address] [id number] [place] [address]- 4166 Jul, [facility] [place] [facility] [address] [id number] [place] [address]- 8836 Jul, [facility] [place] [facility] [address] [id number] [place] [address]- 2546 Jul, [facility] [place] [facility] [address] [id number], [place] [address]- 1404 Jul, [facility] [place] [facility] [address] [id number] [place] [address]- 4114 Jun, [facility] [place] [facility] [address] [id number] [place] [address]- 9029 Jun, [facility] [place] [facility] [address] [facility] [id number] [place] [address]- 4876 Jun, [facility] [place] [facility] [address] [id number] [place] [address]- 2594 Jun, [facility] [place] [facility] [address] [id number] [place] [address]- 5192 Jun, [facility] [place] [facility] [address] [id number] [place] [address]- 2064 Jun, [facility] [place] [facility] [address] [facility] [id number] [place] [address]- 9763 Jun, [facility] [place] [facility] [address] [facility] [id number] [place] [address]- 4416 Apr, [facility] [place] [facility] [address] [facility] [id number] [place] [address]- 8896 Apr, [facility] [place] [facility] [address] [facility] [id number], [place] [address]- 2817 Apr, [facility] [place] [facility] [address] [facility] [id number], [place] [address]- 6042 Apr, [facility] [place] [facility] [address] [facility] [id number], [place] [address]- 6801 Apr, [facility] [place] [facility] [address] [id number], [place] [address]- 1416 Apr, [facility] [place] [facility] [address] [facility] [id number], [place] [address]- 7741 27 Mar, 2012 [facility] [place] [facility] [address] [facility] [id number], [place] [address]- 9433 19 Mar, 2012 [facility] [place] [facility] [address] [id number] [place] [address]- 8399 14 Mar, 2012 [facility] [place] [facility] [address] [id number] [place] [address]- 4745 07 Mar, 2012 [facility] [place] [facility] [address] [id number] [place] [address]- 2546 06 Mar, 2012 [facility] [place] [facility] [address] [id number] [place] [address]- 4616 05 Mar, 2012 [facility] [place] [facility] [address] [id number] [place] [address]- 5961 Feb, [facility] [place] [facility] [address] [id number] [place] [address]- 1759 Feb, [facility] [place] [facility] [address] [id number] [place] [address]- 5995 Feb, [facility] [place] [facility] [address] [id number] [place] [address]- 3329 Jan, [facility] [place] [facility] [address] [id number] [place] [address]- 2517 Jan, [facility] [place] [facility] [address] [id number] [place] [address]- 0166 November, [facility] [place] [facility] [address] [id number] [place] [address]- 4006 November, [facility] [place] [facility] [address] [id number] [place] [address]- 9006 November, [facility] [place] [facility] [address] [id number] [place] [address]- 2893 Aug, [facility] [place] [facility] [address] [id number] [place] [address]- 4136 Jul, [facility] [place] [facility] [address] [id number] [place] [address]- 6816 Jun, [facility] [place] [facility] [address] [id number] [place] [address]- 8336 Jun, [facility] [address] [id number] [address]- [address] 31 Apr, 2011 [facility] [address] [facility] [id number], [place] [address]- 2546 Apr, [facility] [address] [address]- 2546 Apr, [facility] [address] [address]- 2546 Apr, [facility] [address] [address] 2546 16 Mar, 2011 [facility] [address] [address]- 2546 Feb, [facility] [address] [address] 2546 Dec, [facility] [address] [address] 2546 Jan, [facility] [address] [address]- 1375 May, [facility] [address] [id number], [place] [address]- [address]25 May, IMMUNIZATIONS No Known Immunizations SOCIAL HISTORY Never Assessed REASON FOR VISIT [facility] Updated -CLogiudiciRN PLAN OF CARE VITAL SIGNS MEDICATIONS No Known Medications RESULTS No Results PROCEDURES No Known procedures INSTRUCTIONS MEDICATIONS ADMINISTERED No Known Medications MEDICAL (GENERAL) HISTORY Type Description Date Medical History hypertension Medical History anxiety Surgical History left humerus has plate and 7 screws Surgical History tonsillectomy and adenoidectomy- age 9
--- OUTSIDE RECORDS SUMMARY | 2018-09-04 10:16 | XMS REPORT | Continuity of Care Document ---
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 HIDRADENITIS SUPPURATIVA 04/07/2012 CONCHITASTEPHENIE Pittman APRN 705.83 HIDRADENITIS SUPPURATIVA 04/07/2012 CONCHITASTEPHENIE Pittman APRN A 705.83 HIDRADENITIS SUPPURATIVA 04/07/2012 CONCHITASTEPHENIE Pittman APRN A 705.83 HIDRADENITIS SUPPURATIVA 04/07/2012 JUVENCIO CALDERA DO K 705.83 HIDRADENITIS SUPPURATIVA 04/07/2012 BELINDA PETTIT APRN S 705.83 HIDRADENITIS SUPPURATIVA 04/28/2012 692.9 DERMATITIS 04/28/2012 692.9 DERMATITIS 04/28/2012 DOROTHY CALDERA DOA K 692.9 DERMATITIS 04/28/2012 CALDERA DODOROTHYA K 692.9 DERMATITIS 04/28/2012 692.9 DERMATITIS 04/28/2012 692.9 DERMATITIS 04/28/2012 STEPHENIE ARANGO APRN A 692.9 DERMATITIS 04/28/2012 STEPHENIE ARANGO APRN A 692.9 DERMATITIS 04/28/2012 STEPHENIE ARANGO APRN A 692.9 DERMATITIS 04/28/2012 CALDERA DOROTHY PALOMINOA K 692.9 DERMATITIS 04/28/2012 BELINDA PETTIT APRN S 692.9 DERMATITIS 09/07/2012 JUVENCIO CALDERA DO K 724.2 LUMBAGO/ LOW BACK PAIN 09/07/2012 724.2 LUMBAGO/ LOW BACK PAIN 09/07/2012 724.2 LUMBAGO/ LOW BACK PAIN 09/07/2012 STEPHENIE ARANGO APRN A 724.2 LUMBAGO/ LOW BACK PAIN 09/07/2012 STEPHENIE ARANGO APRN A 724.2 LUMBAGO/ LOW BACK PAIN 09/07/2012 STEPHENIE ARANGO APRN A 724.2 LUMBAGO/ LOW BACK PAIN 09/07/2012 JUVENCIO CALDERA DO K 724.2 LUMBAGO/ LOW BACK PAIN 09/07/2012 BELINDA PETTIT APRN S 724.2 LUMBAGO/ LOW BACK PAIN 06/15/2013 STEPHENIE ARANGO APRN A 278.01 OBESITY, MORBID (BMI >40) 06/15/2013 STEPHENIE ARANGO APRN A 305.1 TOBACCO ABUSE 06/15/2013 STEPHENIE ARANGO APRN A V76.10 BREAST CANCER SCREENING 06/15/2013 STEPHENIE ARANGO APRN A V76.2 CERVICAL CANCER SCREENING (PAP SMEAR) 06/15/2013 STEPHENIE ARANGO APRN A 278.01 OBESITY, MORBID (BMI >40) 06/15/2013 JORDYN ARANGO APRNIDI A 305.1 TOBACCO ABUSE 06/15/2013 CONCHITA JUNIOR, STEPHENIE A V76.10 BREAST CANCER SCREENING 06/15/2013 CONCHITA JUNIOR, STEPHENIE A V76.2 CERVICAL CANCER SCREENING (PAP SMEAR) 06/15/2013 CONCHITA JUNIOR, STEPHENIE A 278.01 OBESITY, MORBID (BMI >40) 06/15/2013 CONCHITA JUNIOR, STPEHENIE A 305.1 TOBACCO ABUSE 06/15/2013 CONCHITA JUNIOR, STEPHENEI A V76.10 BREAST CANCER SCREENING 06/15/2013 CONCHITA JUNIOR, STEPHENIE A V76.2 CERVICAL CANCER SCREENING (PAP SMEAR) 06/15/2013 JUVENCIO CALDERA DO K 278.01 OBESITY, MORBID (BMI >40) 06/15/2013 JUVENCIO CALDERA DO K 305.1 TOBACCO ABUSE 06/15/2013 JUVENCIO CALDERA DO K V76.10 BREAST CANCER SCREENING 06/15/2013 JUVENCIO CALDERA DO K V76.2 CERVICAL CANCER SCREENING (PAP SMEAR) 06/15/2013 WILVERCARLOS A GONZALEZ APRNA S 278.01 OBESITY, MORBID (BMI >40) 06/15/2013 CARLOS A PETTIT APRNA S 305.1 TOBACCO ABUSE 06/15/2013 WILVERDAREN GONZALEZ APRNNDA S V76.10 BREAST CANCER SCREENING 06/15/2013 WILVERDAREN GONZALEZ APRNNDA S V76.2 CERVICAL CANCER SCREENING (PAP SMEAR) 10/03/2013 CONCHITA MCCONNELLToya STEPHENIE A 625.8 OTHER SPECIFIED SYMPTOMS ASSOCIATED WITH FEMALE GENITAL ORGANS 10/03/2013 CONCHITA MCCONNELLToya STEPHENIE A V26.41 FERTILITY COUNSELING 10/03/2013 CONCHITA MCCONNELLN, STEPHENIE A 625.8 OTHER SPECIFIED SYMPTOMS ASSOCIATED WITH FEMALE GENITAL ORGANS 10/03/2013 CONCHITA VERNON STEPHENIE A V26.41 FERTILITY COUNSELING 10/03/2013 JUVENCIO CALDERA DO K 625.8 OTHER SPECIFIED SYMPTOMS ASSOCIATED WITH FEMALE GENITAL ORGANS 10/03/2013 JUVENCIO CALDERA DO K V26.41 FERTILITY COUNSELING 10/03/2013 CARLOS A PETTIT APRNA S 625.8 OTHER SPECIFIED SYMPTOMS ASSOCIATED WITH FEMALE GENITAL ORGANS 10/03/2013 DAREN PETTIT APRNNDA S V26.41 FERTILITY COUNSELING 06/11/2014 JUVENCIO CALDERA DO K 276.51 DEHYDRATION 06/11/2014 DOROTHY CALDERA DOA K 780.4 DIZZINESS AND VERTIGO 06/11/2014 DOROTHY CALDERA DOA K 787.02 NAUSEA ALONE 06/11/2014 BELINDA PETTIT APRN S 276.51 DEHYDRATION 06/11/2014 CARLOS A PETTIT APRNA S 780.4 DIZZINESS AND VERTIGO 06/11/2014 CARLOS A PETTIT APRNA S 787.02 NAUSEA ALONE 12/08/2014 RADHA SANDERS ART OBJECTS SALESPERSON Ot 682.2 CELLULITIS OF TRUNK 12/08/2014 RADHA SANDERS ART OBJECTS SALESPERSON Ot 682.6 CELLULITIS OF LEG 12/08/2014 RADHA SANDERS ART OBJECTS SALESPERSON Ot 705.83 HIDRADENITIS 12/17/2014 RADHA SANDERS ART OBJECTS SALESPERSON Ot 708.9 URTICARIA NOS 12/17/2014 RADHA SANDERS ART OBJECTS SALESPERSON Ot 782.1 NONSPECIF SKIN ERUPT NEC 03/19/2015 MAHSA DALY DO Ot 518.0 PULMONARY COLLAPSE 03/19/2015 MAHSA DALY DO Ot 599.0 URIN TRACT INFECTION NOS 03/19/2015 MAHSA DALY DO Ot 786.50 CHEST PAIN NOS 03/19/2015 MAHSA DALY DO Ot N39.0 URINARY TRACT INFECTION, SITE NOT SPECIF 03/24/2015 JOSÉ MIGUEL ESTEVEZ, JAZ Sotomayor Ot 305.1 TOBACCO USE DISORDER 03/24/2015 JAZ VALDEZ MD Ot 599.0 URIN TRACT INFECTION NOS 03/24/2015 JOSÉ MIGUEL ESTEVEZ, JAZ Sotomayor Ot 789.01 ABDOMINAL PAIN, RIGHT UPPER QUADRANT 04/17/2015 KRZYSZTOF CARTER A POWERHOUSE ENGINEER Ot 626.2 05/22/2015 KRZYSZTOF CARTER A POWERHOUSE ENGINEER Ot 626.2 06/03/2015 ADRIANNA ESTEVEZ, DOMI Pittman Ot Z09 06/03/2015 ADRIANNA ESTEVEZ, DOMI Pittman Ot Z87.42 06/13/2015 KRZYSZTOF CARTER A POWERHOUSE ENGINEER Ot 626.2 06/27/2015 KRZYSZTOF CARTER A POWERHOUSE ENGINEER Ot 626.2 11/04/2015 KRZYSZTOF CARTER A POWERHOUSE ENGINEER Ot 626.2 EXCESSIVE MENSTRUATION 11/04/2015 DOMI RODAS MD Ot Z87.42 PERSONAL HISTORY OF OTH DISEASES OF THE 11/04/2015 DOMI RODAS MD Ot Z09 ENCNTR FOR F/U EXAM AFT TRTMT FOR COND O 11/04/2015 DOMI RODAS MD Ot Z87.42 PERSONAL HISTORY OF OTH DISEASES OF THE 11/04/2015 RADHA SANDERS ART OBJECTS SALESPERSON Ot F17.210 NICOTINE DEPENDENCE, CIGARETTES, UNCOMPL 11/04/2015 RADHA SANDERS ART OBJECTS SALESPERSON Ot L02.211 CUTANEOUS ABSCESS OF ABDOMINAL WALL 11/04/2015 KRZYSZTOF CARTER POWERHOUSE ENGINEER Ot 626.2 EXCESSIVE MENSTRUATION 11/04/2015 DOMI RODAS MD Ot Z87.42 PERSONAL HISTORY OF OTH DISEASES OF THE 11/04/2015 DOMI RODAS MD Ot Z09 ENCNTR FOR F/U EXAM AFT TRTMT FOR COND O 11/04/2015 DOMI RODAS MD Ot Z87.42 PERSONAL HISTORY OF OTH DISEASES OF THE 11/06/2015 RADHA SANDERS ART OBJECTS SALESPERSON Ot F17.210 NICOTINE DEPENDENCE, CIGARETTES, UNCOMPL 11/06/2015 RADHA SANDERS ART OBJECTS SALESPERSON Ot L02.211 CUTANEOUS ABSCESS OF ABDOMINAL WALL 04/21/2016 KRZYSZTOF CARTER POWERHOUSE ENGINEER Ot 626.2 EXCESSIVE MENSTRUATION 04/21/2016 DOMI RODAS MD Ot Z87.42 PERSONAL HISTORY OF OTH DISEASES OF THE 04/21/2016 DOMI RODAS MD Ot Z09 ENCNTR FOR F/U EXAM AFT TRTMT FOR COND O 04/21/2016 DOMI RODAS MD Ot Z87.42 PERSONAL HISTORY OF OTH DISEASES OF THE 04/21/2016 DOMI RODAS MD Ot Z09 ENCNTR FOR F/U EXAM AFT TRTMT FOR COND O 04/21/2016 DOMI RODAS MD Ot Z87.42 PERSONAL HISTORY OF OTH DISEASES OF THE 05/04/2016 RADHA SANDERS ART OBJECTS SALESPERSON Ot F17.210 NICOTINE DEPENDENCE, CIGARETTES, UNCOMPL 05/04/2016 RADHA SANDERS ART OBJECTS SALESPERSON Ot L02.416 CUTANEOUS ABSCESS OF LEFT LOWER LIMB 05/19/2016 KRZYSZTOF CARTER POWERHOUSE ENGINEER Ot 626.2 EXCESSIVE MENSTRUATION 05/19/2016 DOMI RODAS MD Ot Z87.42 PERSONAL HISTORY OF OTH DISEASES OF THE 05/19/2016 DOMI RODAS MD Ot Z09 ENCNTR FOR F/U EXAM AFT TRTMT FOR COND O 05/19/2016 DOMI RODAS MD, Ot Z87.42 PERSONAL HISTORY OF OTH DISEASES OF THE 06/06/2016 CHENCHO JEREZ MD, Ot F17.210 NICOTINE DEPENDENCE, CIGARETTES, UNCOMPL 06/06/2016 CHENCHO JEREZ MD Ot L02.211 CUTANEOUS ABSCESS OF ABDOMINAL WALL 06/06/2016 CHENCHO JEREZ MD Ot L02.416 CUTANEOUS ABSCESS OF LEFT LOWER LIMB 06/06/2016 CHENCHO JEREZ MD Ot F17.210 NICOTINE DEPENDENCE, CIGARETTES, UNCOMPL 06/06/2016 CHENCHO JEREZ MD Ot L02.211 CUTANEOUS ABSCESS OF ABDOMINAL WALL 06/06/2016 CHENCHO JEREZ MD Ot L02.416 CUTANEOUS ABSCESS OF LEFT LOWER LIMB 06/12/2016 DEA DO, THALIA K Ot F17.210 NICOTINE DEPENDENCE, CIGARETTES, UNCOMPL 06/12/2016 DEA DO, THALIA K Ot Z48.01 ENCOUNTER FOR CHANGE OR REMOVAL OF SURGI 06/14/2016 DEA DO, THALIA K Ot F17.210 NICOTINE DEPENDENCE, CIGARETTES, UNCOMPL 06/14/2016 DEA DO, THALIA K Ot Z48.01 ENCOUNTER FOR CHANGE OR REMOVAL OF SURGI 06/18/2016 DEA DO, THALIA K Ot F17.210 NICOTINE DEPENDENCE, CIGARETTES, UNCOMPL 06/18/2016 DEA DO, THALIA K Ot Z48.01 ENCOUNTER FOR CHANGE OR REMOVAL OF SURGI 08/17/2016 GISSELLE ALEMAN Ot F17.210 NICOTINE DEPENDENCE, CIGARETTES, UNCOMPL 08/17/2016 GISSELLE ALEMAN Ot L02.211 CUTANEOUS ABSCESS OF ABDOMINAL WALL 08/17/2016 GISSELLE ALEMAN Ot Z86.14 PERSONAL HISTORY OF METHICILLIN RESIS ST 08/19/2016 GISSELLE ALEMAN Ot F17.210 NICOTINE DEPENDENCE, CIGARETTES, UNCOMPL 08/19/2016 GISSELLE ALEMAN Ot L02.211 CUTANEOUS ABSCESS OF ABDOMINAL WALL 08/19/2016 GISSELLE ALEMAN Ot Z86.14 PERSONAL HISTORY OF METHICILLIN RESIS ST 08/20/2016 KRZYSZTOF CARTER MILKA Ot 626.2 EXCESSIVE MENSTRUATION 08/20/2016 DOMI RODAS MD Ot Z87.42 PERSONAL HISTORY OF OTH DISEASES OF THE 08/20/2016 DOMI RODAS MD, Ot Z09 ENCNTR FOR F/U EXAM AFT TRTMT FOR COND O 08/20/2016 DOMI RODAS MD Ot Z87.42 PERSONAL HISTORY OF OTH DISEASES OF THE 03/27/2017 GISSELLE ALEMAN Ot B35.4 TINEA CORPORIS 03/27/2017 GISSELLE ALEMAN Ot J06.9 ACUTE UPPER RESPIRATORY INFECTION, UNSPE 03/27/2017 GISSELLE ALEMAN Ot L02.211 CUTANEOUS ABSCESS OF ABDOMINAL WALL 03/27/2017 GISSELLE ALEMAN Ot L73.2 HIDRADENITIS SUPPURATIVA 03/27/2017 GISSELLE ALEMAN Ot Z87.42 PERSONAL HISTORY OF OTH DISEASES OF THE 03/27/2017 GISSELLE ALEMAN Ot Z87.81 PERSONAL HISTORY OF (HEALED) TRAUMATIC F 03/27/2017 GISSELLE ALEMAN Ot Z90.89 ACQUIRED ABSENCE OF OTHER ORGANS 03/29/2017 GISSELLE ALEMAN Ot B35.4 TINEA CORPORIS 03/29/2017 GISSELLE ALEMAN Ot J06.9 ACUTE UPPER RESPIRATORY INFECTION, UNSPE 03/29/2017 GISSELLE ALEMAN Ot L02.211 CUTANEOUS ABSCESS OF ABDOMINAL WALL 03/29/2017 GISSELLE ALEMAN Ot L73.2 HIDRADENITIS SUPPURATIVA 03/29/2017 GISSELLE ALEMAN Ot Z87.42 PERSONAL HISTORY OF OTH DISEASES OF THE 03/29/2017 GISSELLE ALEMAN Ot Z87.81 PERSONAL HISTORY OF (HEALED) TRAUMATIC F 03/29/2017 GISSELLE ALEMAN Ot Z90.89 ACQUIRED ABSENCE OF OTHER ORGANS 04/01/2017 GISSELLE ALEMAN Ot B35.4 TINEA CORPORIS 04/01/2017 GISSELLE ALEMAN Ot J06.9 ACUTE UPPER RESPIRATORY INFECTION, UNSPE 04/01/2017 GISSELLE ALEMAN Ot L02.211 CUTANEOUS ABSCESS OF ABDOMINAL WALL 04/01/2017 GISSELLE ALEMAN Ot L73.2 HIDRADENITIS SUPPURATIVA 04/01/2017 GISSELLE ALEMAN Ot Z87.42 PERSONAL HISTORY OF OTH DISEASES OF THE 04/01/2017 GISSELLE ALEMAN Ot Z87.81 PERSONAL HISTORY OF (HEALED) TRAUMATIC F 04/01/2017 GISSELLE ALEMAN Ot Z90.89 ACQUIRED ABSENCE OF OTHER ORGANS 09/06/2017 RADHA SANDERS APRN Ot J40 BRONCHITIS, NOT SPECIFIED ACUTE OR CH 09/06/2017 RADHA SANDERS APRN Ot L02.211 CUTANEOUS ABSCESS OF ABDOMINAL WALL 09/06/2017 RADHA SANDERS APRN Ot R05 COUGH 09/06/2017 RADHA SANDERS APRN Ot Z86.14 PERSONAL HISTORY OF METHICILLIN RESIS ST 09/06/2017 RADHA SANDERS APRN Ot Z87.42 PERSONAL HISTORY OF OTH DISEASES OF THE 09/06/2017 RADHA SANDERS APRN Ot Z87.440 PERSONAL HISTORY OF URINARY (TRACT) INFE 09/06/2017 RADHA SANDERS APRN Ot Z87.81 PERSONAL HISTORY OF (HEALED) TRAUMATIC F 09/06/2017 RADHA SANDERS APRN Ot Z88.2 ALLERGY STATUS TO SULFONAMIDES STATUS 09/06/2017 RADHA SANDERS APRN Ot Z90.89 ACQUIRED ABSENCE OF OTHER ORGANS 09/08/2017 RADHA SANDERS APRN Ot J40 BRONCHITIS, NOT SPECIFIED ACUTE OR CH 09/08/2017 RADHA SANDERS APRN Ot L02.211 CUTANEOUS ABSCESS OF ABDOMINAL WALL 09/08/2017 RADHA SANDERS APRN Ot R05 COUGH 09/08/2017 RADHA SANDERS APRN Ot Z86.14 PERSONAL HISTORY OF METHICILLIN RESIS ST 09/08/2017 RADHA SANDERS APRN Ot Z87.42 PERSONAL HISTORY OF OTH DISEASES OF THE 09/08/2017 RADHA SANDERS APRN Ot Z87.440 PERSONAL HISTORY OF URINARY (TRACT) INFE 09/08/2017 RADHA SANDERS APRN Ot Z87.81 PERSONAL HISTORY OF (HEALED) TRAUMATIC F 09/08/2017 RADHA SANDERS APRN Ot Z88.2 ALLERGY STATUS TO SULFONAMIDES STATUS 09/08/2017 RADHA SANDERS APRN Ot Z90.89 ACQUIRED ABSENCE OF OTHER ORGANS 09/12/2017 RADHA SANDERS APRN Ot J40 BRONCHITIS, NOT SPECIFIED ACUTE OR CH 09/12/2017 RADHA SANDERS APRN Ot L02.211 CUTANEOUS ABSCESS OF ABDOMINAL WALL 09/12/2017 RADHA SANDERS APRN Ot R05 COUGH 09/12/2017 RADHA SANDERS APRN Ot Z86.14 PERSONAL HISTORY OF METHICILLIN RESIS ST 09/12/2017 RADHA SANDERS APRN Ot Z87.42 PERSONAL HISTORY OF OTH DISEASES OF THE 09/12/2017 RAHDA SANDERS APRN Ot Z87.440 PERSONAL HISTORY OF URINARY (TRACT) INFE 09/12/2017 RADHA SANDERS APRN Ot Z87.81 PERSONAL HISTORY OF (HEALED) TRAUMATIC F 09/12/2017 RADHA SANDERS APRN Ot Z88.2 ALLERGY STATUS TO SULFONAMIDES STATUS 09/12/2017 RADHA SANDERS APRN Ot Z90.89 ACQUIRED ABSENCE OF OTHER ORGANS 12/12/2017 VALDEZ SCHAEFER MD Ot F17.210 NICOTINE DEPENDENCE, CIGARETTES, UNCOMPL 12/12/2017 VALDEZ SCHAEFER MD Ot L02.215 CUTANEOUS ABSCESS OF PERINEUM 12/12/2017 VALDEZ SCHAEFER MD Ot Z86.14 PERSONAL HISTORY OF METHICILLIN RESIS ST 12/12/2017 VALDEZ SCHAEFER MD Ot Z87.2 PERSONAL HISTORY OF DISEASES OF THE SKIN 12/12/2017 VALDEZ SCHAEFER MD Ot Z87.42 PERSONAL HISTORY OF OTH DISEASES OF THE 12/12/2017 VALDEZ SCHAEFER MD Ot Z87.448 PERSONAL HISTORY OF OTHER DISEASES OF UR 12/12/2017 VALDEZ SCHAEFER MD Ot Z87.81 PERSONAL HISTORY OF (HEALED) TRAUMATIC F 12/12/2017 VALDEZ SCHAEFER MD Ot Z88.2 ALLERGY STATUS TO SULFONAMIDES STATUS 12/12/2017 VALDEZ SCHAEFER MD Ot Z90.89 ACQUIRED ABSENCE OF OTHER ORGANS 12/14/2017 VALDEZ SCHAEFER MD Ot F17.210 NICOTINE DEPENDENCE, CIGARETTES, UNCOMPL 12/14/2017 VALDEZ SCHAEFER MD Ot L02.215 CUTANEOUS ABSCESS OF PERINEUM 12/14/2017 VALDEZ SCHAEFER MD Ot Z86.14 PERSONAL HISTORY OF METHICILLIN RESIS ST 12/14/2017 VALDEZ SCHAEFER MD Ot Z87.2 PERSONAL HISTORY OF DISEASES OF THE SKIN 12/14/2017 VALDEZ SCHAEFER MD Ot Z87.42 PERSONAL HISTORY OF OTH DISEASES OF THE 12/14/2017 VALDEZ SCHAEFER MD Ot Z87.448 PERSONAL HISTORY OF OTHER DISEASES OF UR 12/14/2017 VALDEZ SCHAEFER MD Ot Z87.81 PERSONAL HISTORY OF (HEALED) TRAUMATIC F 12/14/2017 VALDEZ SCHAEFER MD Ot Z88.2 ALLERGY STATUS TO SULFONAMIDES STATUS 12/14/2017 VALDEZ SCHAEFER MD Ot Z90.89 ACQUIRED ABSENCE OF OTHER ORGANS 03/13/2018 LAKSHMI HENDERSON Ot L02.211 CUTANEOUS ABSCESS OF ABDOMINAL WALL 03/13/2018 LAKSHMI HENDERSON Ot L03.311 CELLULITIS OF ABDOMINAL WALL 03/13/2018 LAKSHMI HENDERSON Ot L73.2 HIDRADENITIS SUPPURATIVA 03/13/2018 LAKSHMI HENDERSON Ot Z82.49 FAMILY HX OF ISCHEM HEART DIS AND OTH DI 03/13/2018 LAKSHMI HENDERSON Ot Z86.14 PERSONAL HISTORY OF METHICILLIN RESIS ST 03/13/2018 LAKSHMI HENDERSON Ot Z87.448 PERSONAL HISTORY OF OTHER DISEASES OF UR 03/13/2018 LAKSHMI HENDERSON Ot Z88.2 ALLERGY STATUS TO SULFONAMIDES STATUS 03/13/2018 SOCORRO HENDERSONIS Ot Z90.89 ACQUIRED ABSENCE OF OTHER ORGANS 03/15/2018 LAKSHMI HENDERSON Ot L02.211 CUTANEOUS ABSCESS OF ABDOMINAL WALL 03/15/2018 LAKSHMI HENDERSON Ot L03.311 CELLULITIS OF ABDOMINAL WALL 03/15/2018 LAKSHMI HENDERSON Ot L73.2 HIDRADENITIS SUPPURATIVA 03/15/2018 LAKSHMI HENDERSON Ot Z82.49 FAMILY HX OF ISCHEM HEART DIS AND OTH DI 03/15/2018 LAKSHMI HENDERSON Ot Z86.14 PERSONAL HISTORY OF METHICILLIN RESIS ST 03/15/2018 LAKSHMI HENDERSON Ot Z87.448 PERSONAL HISTORY OF OTHER DISEASES OF UR 03/15/2018 LAKSHMI HENDERSON Ot Z88.2 ALLERGY STATUS TO SULFONAMIDES STATUS 03/15/2018 LAKSHMI HENDERSON Ot Z90.89 ACQUIRED ABSENCE OF OTHER ORGANS 03/19/2018 LAKSHMI HENDERSON Ot L02.211 CUTANEOUS ABSCESS OF ABDOMINAL WALL 03/19/2018 BEATRIZ LAKSHMI Ot L03.311 CELLULITIS OF ABDOMINAL WALL 03/19/2018 SOCORRO HENDERSONIS Ot L73.2 HIDRADENITIS SUPPURATIVA 03/19/2018 SOCORRO HENDERSONIS Ot Z82.49 FAMILY HX OF ISCHEM HEART DIS AND OTH DI 03/19/2018 BEATRIZLAKSHMI Ot Z86.14 PERSONAL HISTORY OF METHICILLIN RESIS ST 03/19/2018 MARTINLAKSHMI CLARK Ot Z87.448 PERSONAL HISTORY OF OTHER DISEASES OF UR 03/19/2018 BEATRIZLAKSHMI Ot Z88.2 ALLERGY STATUS TO SULFONAMIDES STATUS 03/19/2018 BEATRIZLAKSHMI Ot Z90.89 ACQUIRED ABSENCE OF OTHER ORGANS 07/14/2018 KRZYSZTOF CARTER POWERHOUSE ENGINEER Ot 626.2 EXCESSIVE MENSTRUATION 07/14/2018 DOMI RODAS MD Ot Z87.42 PERSONAL HISTORY OF OTH DISEASES OF THE 07/14/2018 DOMI RODAS MD Ot Z09 ENCNTR FOR F/U EXAM AFT TRTMT FOR COND O 07/14/2018 DOMI RODAS MD Ot Z87.42 PERSONAL HISTORY OF OTH DISEASES OF THE Procedures Code Description [place] [address] GC/CHLAM PROBE (STATE) 06/09/2012 86223 CULTURE UROGENITAL 06/11/2012 79778 TRICHOMONAS (IN-HOUSE) 06/15/2012 59603 TRICHOMONAS (IN-HOUSE) 07/20/2012 50810 CULTURE UROGENITAL 07/22/2012 94331 GC/CHLAM PROBE (STATE) 07/22/2012 72242 XRAY HUMERUS LEFT 2 VIEWS 09/07/2012 JANET OROPEZA 09/07/2012 60736 GC/CHLAM PROBE (STATE) 06/15/2013 84907 PAP SMEAR 06/15/2013 [id number] PAP SMEAR OBTAIN SMEAR 06/15/2013 23157 TRICHOMONAS (IN-HOUSE) 06/15/2013 16718 CULTURE UROGENITAL 06/19/2013 13925 GC/CHLAM PROBE (STATE) 10/03/2013 96666 UA W/ CULTURE IF INDICATED 10/03/2013 47757 TEST, URINE (IN- HOUSE) 10/03/2013 68272 TRICHOMONAS (IN-HOUSE) 10/03/2013 44250 CULTURE UROGENITAL 10/04/2013 19562 TEST, URINE (IN- HOUSE) 02/13/2014 59781 TRICHOMONAS (IN-HOUSE) 02/13/2014 98785 SYPHILLIS-STATE LAB 02/13/2014 68632 HIV (STATE LAB) 02/13/2014 75126 CULTURE UROGENITAL 02/13/2014 22152 GC/CHLAM PROBE (STATE) 02/13/2014 42761 ROUTINE VENIPUNCTURE 06/11/2014 95729 TSH 06/11/2014 84467 TEST, URINE (IN- HOUSE) 06/11/2014 [id number] DRAINAGE OF ABD SUBCU/ FASCIA, OPEN APPRO 06/05/2016 [id number] DRAINAGE OF L UP LEG SUBCU /FASCIA, OPEN 06/05/2016 Results Test Result Range Complete blood count (CBC) with automated white blood cell (WBC) differential - 06/05/16 16:27 Blood leukocytes automated count (number/volume) 19.7 10*3/uL 4.3-11.0 Blood erythrocytes automated count (number/volume) 4.88 10*6/uL 4.35-5.85 Venous blood hemoglobin measurement (mass/volume) 16.9 g/dL 11.5-16.0 Blood hematocrit (volume fraction) 49 % 35-52 Automated erythrocyte mean corpuscular volume 99 [foz_us] 80-99 Automated erythrocyte mean corpuscular hemoglobin (mass per erythrocyte) 35 pg 25-34 Automated erythrocyte mean corpuscular hemoglobin concentration measurement ( mass/volume) 35 g/dL 32-36 Automated erythrocyte distribution width ratio 12.4 % 10.0-14.5 Automated blood platelet count (count/volume) 338 10*3/uL 130-400 Automated blood platelet mean volume measurement 9.7 [foz_us] 7.4-10.4 Automated blood neutrophils/100 leukocytes 65 % 42-75 Automated blood lymphocytes/100 leukocytes 25 % 12-44 Blood monocytes/100 leukocytes 9 % 0-12 Automated blood eosinophils/100 leukocytes 1 % 0-10 Automated blood basophils/100 leukocytes 0 % 0-10 Blood neutrophils automated count (number/volume) 12.8 10*3 1.8-7.8 Blood lymphocytes automated count (number/volume) 4.9 10*3 1.0-4.0 Blood monocytes automated count (number/volume) 1.7 10*3 0.0-1.0 Automated eosinophil count 0.2 10*3/uL 0.0-0.3 Automated blood basophil count (count/volume) 0.0 10*3/uL 0.0-0.1 Serum or plasma choriogonadotropin ( test) detection - 06/05/16 16:27 Serum or plasma choriogonadotropin ( test) detection NEGATIVE NEGATIVE Blood manual differential performed detection - 06/05/16 16:27 Blood monocytes/100 leukocytes 2 % NRG Manual blood segmented neutrophils/100 leukocytes 67 % NRG Blood band neutrophils/100 leukocytes 0 % NRG Manual blood lymphocytes/100 leukocytes 28 % NRG Manual eosinophils/100 leukocytes in nose 0 % NRG Manual blood basophils/100 leukocytes 0 % NRG Blood lymphocytes variant/100 leukocytes 3 % NRG Blood erythrocyte morphology finding identification NORMAL NR Whole blood basic metabolic panel - 06/05/16 16:27 Serum or plasma sodium measurement (moles/volume) 136 mmol/L 135-145 Serum or plasma potassium measurement (moles/volume) 4.1 mmol/L 3.6-5.0 Serum or plasma chloride measurement (moles/volume) 104 mmol/L 98-107 Carbon dioxide 19 mmol/L 21-32 Serum or plasma anion gap determination (moles/volume) 13 mmol/L 5-14 Serum or plasma urea nitrogen measurement (mass/volume) 10 mg/dL 7-18 Serum or plasma creatinine measurement (mass/volume) 0.78 mg/dL 0.60-1.30 Serum or plasma urea nitrogen/creatinine mass ratio 13 NRG Serum or plasma creatinine measurement with calculation of estimated glomerular filtration rate > NRG Serum or plasma glucose measurement (mass/volume) 109 mg/dL 70-105 Serum or plasma calcium measurement (mass/volume) 9.7 mg/dL 8.5-10.1 Blood lactic acid measurement (moles/volume) - 06/05/16 16:50 Blood lactic acid measurement (moles/volume) 1.7 mmol/L 0.5-2.0 Bacterial blood culture - 06/05/16 16:50 QUANTITY OF GROWTH Scant Growth NR Bacterial blood culture [id number] NRG Bacterial blood culture - 06/05/16 17:00 Bacterial blood culture NG NRG Gram stain microscopy - 06/05/16 17:01 GRAM STAIN RESULT FEW WBC'S, NO BACTERIA OBSERVED NRG Bacteria identification in wound by culture - 06/05/16 17:01 Bacteria identification in wound by culture [id number] NRG QUANTITY OF GROWTH Scant Growth NRG Complete blood count (CBC) with automated white blood cell (WBC) differential - 06/06/16 04:01 Blood leukocytes automated count (number/volume) 10.9 10*3/uL 4.3-11.0 Blood erythrocytes automated count (number/volume) 4.65 10*6/uL 4.35-5.85 Venous blood hemoglobin measurement (mass/volume) 16.2 g/dL 11.5-16.0 Blood hematocrit (volume fraction) 47 % 35-52 Automated erythrocyte mean corpuscular volume 101 [foz_us] 80-99 Automated erythrocyte mean corpuscular hemoglobin (mass per erythrocyte) 35 pg 25-34 Automated erythrocyte mean corpuscular hemoglobin concentration measurement ( mass/volume) 35 g/dL 32-36 Automated erythrocyte distribution width ratio 12.3 % 10.0-14.5 Automated blood platelet count (count/volume) 263 10*3/uL 130-400 Automated blood platelet mean volume measurement 10.1 [foz_us] 7.4-10.4 Automated blood neutrophils/100 leukocytes 57 % 42-75 Automated blood lymphocytes/100 leukocytes 31 % 12-44 Blood monocytes/100 leukocytes 10 % 0-12 Automated blood eosinophils/100 leukocytes 1 % 0-10 Automated blood basophils/100 leukocytes 0 % 0-10 Blood neutrophils automated count (number/volume) 6.2 10*3 1.8-7.8 Blood lymphocytes automated count (number/volume) 3.4 10*3 1.0-4.0 Blood monocytes automated count (number/volume) 1.1 10*3 0.0-1.0 Automated eosinophil count 0.2 10*3/uL 0.0-0.3 Automated blood basophil count (count/volume) 0.0 10*3/uL 0.0-0.1 Gram stain microscopy - 08/17/16 15:00 GRAM STAIN RESULT FEW WBC'S, NO BACTERIA OBSERVED NRG Bacteria identification in wound by culture - 08/17/16 15:00 Bacteria identification in wound by culture [id number] NRG FREE TEXT EXTERNAL (COAGULASE NEGATIVE STAPH.) NRG QUANTITY OF GROWTH Scant Growth NRG FREE TEXT ENTRY 2 SENSITIVITY REPORTED AT 1212, 2 NR Bacterial susceptibility panel - 08/17/16 15:00 Oxacillin susceptibility test by minimum inhibitory concentration 2 NRG Gentamicin susceptibility test by minimum inhibitory concentration < = NRG Clindamycin susceptibility test by minimum inhibitory concentration >= NRG Erythromycin susceptibility test by minimum inhibitory concentration >= NRG Trimethoprim/sulfamethoxazole susceptibility test by minimum inhibitoryconcentration <= NRG Vancomycin susceptibility test by minimum inhibitory concentration < = NRG Levofloxacin susceptibility test by minimum inhibitory concentration 0.25 NRG Rifampin susceptibility test by minimum inhibitory concentration <= NRG Tetracycline susceptibility test by minimum inhibitory concentration <= NRG Gram stain microscopy - 03/27/17 18:57 GRAM STAIN RESULT ON DIRCT GRAM STAIN NRG Bacteria identification in wound by culture - 03/27/17 18:57 Bacteria identification in wound by culture [id number] NRG FREE TEXT EXTERNAL NO FURTHER STUDIES UNLESS REQUESTED NRG QUANTITY OF GROWTH Scant Growth NRG Gram stain microscopy - 03/27/17 18:59 GRAM STAIN RESULT ON DIRECT GRAM STAIN. NRG Bacteria identification in wound by culture - 03/27/17 18:59 Bacteria identification in wound by culture [id number] NRG FREE TEXT EXTERNAL THREE DIFFERENT COLONY TYPES NRG QUANTITY OF GROWTH Scant Growth NRG SPECIMEN ID NOTIFICATION$MISSING SECOND ID - 06/15/17 15:10 COMMENT: NRG CULTURE, THROAT - 09/02/17 17:16 CULTURE, THROAT SEE NOTE NRG Gram stain microscopy - 09/06/17 15:34 GRAM STAIN RESULT FEW GRAM NEGATIVE RODS NRG Bacteria identification in wound by culture - 09/06/17 15:34 Bacteria identification in wound by culture [id number] NRG FREE TEXT EXTERNAL FROM ANAEROBIC SUB OF THIO BROTH NRG QUANTITY OF GROWTH . NRG Urine beta human chorionic gonadotropin (hCG) measurement - 12/12/17 20:01 Urine beta human chorionic gonadotropin (hCG) measurement NEGATIVE NEGATIVE TSH - 12/28/17 13:58 TSH 2.22 mIU/L NRG A1C - 12/28/17 13:58 HEMOGLOBIN A1c 5.5 % of total Hgb <5.7 Gram stain microscopy - 03/13/18 17:25 Gram stain microscopy Few Gram Positive Bacilli NRG Bacteria identification in wound by culture - 03/13/18 17:25 Bacteria identification in wound by culture SEE REPORT NRG QUANTITY OF GROWTH . NR Complete blood count (CBC) with automated white blood cell (WBC) differential - 09/02/18 21:48 Blood leukocytes automated count (number/volume) 14.8 10*3/uL 4.3-11.0 Blood erythrocytes automated count (number/volume) 5.11 10*6/uL 4.35-5.85 Venous blood hemoglobin measurement (mass/volume) 17.8 g/dL 11.5-16.0 Blood hematocrit (volume fraction) 52 % 35-52 Automated erythrocyte mean corpuscular volume 102 [foz_us] 80-99 Automated erythrocyte mean corpuscular hemoglobin (mass per erythrocyte) 35 pg 25-34 Automated erythrocyte mean corpuscular hemoglobin concentration measurement ( mass/volume) 34 g/dL 32-36 Automated erythrocyte distribution width ratio 12.4 % 10.0-14.5 Automated blood platelet count (count/volume) 367 10*3/uL 130-400 Automated blood platelet mean volume measurement 9.6 [foz_us] 7.4-10.4 Automated blood neutrophils/100 leukocytes 63 % 42-75 Automated blood lymphocytes/100 leukocytes 29 % 12-44 Blood monocytes/100 leukocytes 6 % 0-12 Automated blood eosinophils/100 leukocytes 1 % 0-10 Automated blood basophils/100 leukocytes 0 % 0-10 Blood neutrophils automated count (number/volume) 9.4 10*3 1.8-7.8 Blood lymphocytes automated count (number/volume) 4.3 10*3 1.0-4.0 Blood monocytes automated count (number/volume) 0.9 10*3 0.0-1.0 Automated eosinophil count 0.2 10*3/uL 0.0-0.3 Automated blood basophil count (count/volume) 0.0 10*3/uL 0.0-0.1 Blood manual differential performed detection - 09/02/18 21:48 Blood monocytes/100 leukocytes 8 % NRG Manual blood segmented neutrophils/100 leukocytes 59 % NRG Blood band neutrophils/100 leukocytes 0 % NRG Manual blood lymphocytes/100 leukocytes 30 % NRG Manual eosinophils/100 leukocytes in nose 2 % NRG Manual blood basophils/100 leukocytes 1 % NRG Blood macrocytes detection by light microscopy SLIGHT NR Comprehensive metabolic panel - 09/02/18 21:48 Serum or plasma sodium measurement (moles/volume) 137 mmol/L 135-145 Serum or plasma potassium measurement (moles/volume) 4.3 mmol/L 3.6-5.0 Serum or plasma chloride measurement (moles/volume) 103 mmol/L 98-107 Carbon dioxide 22 mmol/L 21-32 Serum or plasma anion gap determination (moles/volume) 12 mmol/L 5-14 Serum or plasma urea nitrogen measurement (mass/volume) 9 mg/dL 7-18 Serum or plasma creatinine measurement (mass/volume) 0.79 mg/dL 0.60-1.30 Serum or plasma urea nitrogen/creatinine mass ratio 11 NRG Serum or plasma creatinine measurement with calculation of estimated glomerular filtration rate > NRG Serum or plasma glucose measurement (mass/volume) 132 mg/dL 70-105 Serum or plasma calcium measurement (mass/volume) 10.3 mg/dL 8.5-10.1 Serum or plasma total bilirubin measurement (mass/volume) 0.9 mg/dL 0.1-1.0 Serum or plasma alkaline phosphatase measurement (enzymatic activity/volume) 45 U/L 40-136 Serum or plasma aspartate aminotransferase measurement (enzymatic activity/ volume) 53 U/L 5-34 Serum or plasma alanine aminotransferase measurement (enzymatic activity/volume ) 42 U/L 0-55 Serum or plasma protein measurement (mass/volume) 7.9 g/dL 6.4-8.2 Serum or plasma albumin measurement (mass/volume) 4.9 g/dL 3.2-4.5 Serum or plasma choriogonadotropin ( test) detection - 09/02/18 21:48 Serum or plasma choriogonadotropin ( test) detection NEGATIVE NEGATIVE THYROID STIMULATING HORMONE - 09/02/18 21:48 THYROID STIMULATING HORMONE 0.73 u[iU]/mL 0.35-4.94 Serum or plasma thyroxine (T4) free measurement (mass/volume) - 09/02/18 21:48 Serum or plasma thyroxine (T4) free measurement (mass/volume) 0.98 ng/dL 0.70-1.48 Serum or plasma lithium measurement (moles/volume) - 09/02/18 21:48 BNP level 21.1 pg/mL <100.0 Complete urinalysis with reflex to culture - 09/02/18 21:50 Urine color determination YELLOW NRG Urine clarity determination SLIGHTLY CLOUDY NRG Urine pH measurement by test strip 6 5-9 Specific gravity of urine by test strip 1.015 1.016- 1.022 Urine protein assay by test strip, semi-quantitative NEGATIVE NEGATIVE Urine glucose detection by automated test strip NEGATIVE NEGATIVE Erythrocytes detection in urine sediment by light microscopy NEGATIVE NEGATIVE Urine ketones detection by automated test strip NEGATIVE NEGATIVE Urine nitrite detection by test strip NEGATIVE NEGATIVE Urine total bilirubin detection by test strip NEGATIVE NEGATIVE Urine urobilinogen measurement by automated test strip (mass/volume) NORMAL NORMAL Urine leukocyte esterase detection by dipstick 3+ NEGATIVE Automated urine sediment erythrocyte count by microscopy (number/high power field) NONE NRG Automated urine sediment leukocyte count by microscopy (number/high power field ) [HPF] NRG Bacteria detection in urine sediment by light microscopy FEW NRG Squamous epithelial cells detection in urine sediment by light microscopy 10-25 NRG Crystals detection in urine sediment by light microscopy NONE NRG Casts detection in urine sediment by light microscopy NONE NRG Mucus detection in urine sediment by light microscopy NEGATIVE NRG Complete urinalysis with reflex to culture YES NRG Encounters ACCT No. Visit Date/Time Discharge Status Pt. Type Provider Facility Loc./Unit Complaint [id number] 2014 15:32:00 2014 23:59:59 CLS Outpatient BELINDA PETTIT APRN [id number] 06/11/2014 11:49:00 06/11/2014 23:59:59 CLS Outpatient JUVENCIO CALDERA DO [id number] 02/13/2014 15:07:00 02/13/2014 23:59:59 CLS Outpatient STEPHENIE ARANGO APRN [id number] 10/03/2013 08:40:00 10/03/2013 23:59:59 CLS Outpatient STEPHENIE ARANGO APRN [id number] 06/15/2013 14:58:00 06/15/2013 23:59:59 CLS Outpatient STEPHENIE ARANGO APRN [id number] 09/07/2012 13:25:00 09/07/2012 23:59:59 CLS Outpatient JUVENCIO CALDERA DO [id number] 07/20/2012 15:34:00 07/20/2012 23:59:59 CLS Outpatient JUVENCIO CALDERA DO [id number] 07/08/2012 13:26:00 07/08/2012 23:59:59 CLS Outpatient [id number] 06/09/2012 09:49:00 06/09/2012 23:59:59 CLS Outpatient [id number] 01/23/2013 15:20:00 Document Registration [id number] 11/17/2012 13:59:00 Document Registration [id number] 12/28/2017 13:00:00 12/28/2017 23:59:59 CLS Outpatient ROSARIO WARNER [place] [facility] [id number] 12/28/2017 13:00:00 Document Registration [id number] 09/02/2017 16:20:00 Document Registration [id number] 06/15/2017 15:10:00 Document Registration [id number] 06/15/2017 14:20:00 Document Registration [id number] 04/01/2015 10:07:42 ACT Document Registration [id number] 03/13/2018 16:38:00 03/13/2018 17:50:00 DIS Emergency LAKSHMI HENDERSON [facility] ER ABSCESS ON STOMACH/FEVER/ NAUSEA [id number] 12/12/2017 17:29:00 12/12/2017 20:22:00 DIS Emergency VALDEZ SCHAEFER MD [facility] ER ABSCESS ON STOMACH [id number] 09/06/2017 15:17:00 09/06/2017 16:03:00 DIS Emergency RADHA SANDERS APRN [facility] ER COUGH [id number] 03/27/2017 14:42:00 03/27/2017 19:23:00 DIS Emergency GISSELLE ALEMAN [facility] ER BOIL ON LOWER STOMACH [id number] 08/17/2016 13:06:00 08/17/2016 15:27:00 DIS Emergency GISSELLE ALEMAN [facility] ER BOIL ON STOMACH [id number] 06/12/2016 17:01:00 06/12/2016 18:44:00 DIS Emergency THALIA MALIN DO [facility] ER OPEN WOUND ON STOMACH DUE TO HOSPITALZATION [id number] 06/05/2016 17:21:00 06/06/2016 10:30:00 DIS Inpatient CHENCHO JEREZ MD [facility] 4TH ABSCESS WITH ABDOMINAL WALL CELLULITIS,SEPSIS [id number] 05/04/2016 20:57:00 05/04/2016 21:37:00 DIS Emergency RADHA SANDERS APRN [facility] ER L INNER THIGH LUMP/ DISCOLORATION [id number] 11/04/2015 20:34:00 11/04/2015 21:08:00 DIS Emergency RADHA SANDERS ART OBJECTS SALESPERSON [facility] ER BUMP REDNESS/SWELLING ON STOMACH [id number] 05/29/2015 13:31:00 05/29/2015 23:59:59 CLS Outpatient DOMI RODAS MD [facility] RAD HISTORY OF OVARIAN CYST [id number] 05/22/2015 13:58:00 05/22/2015 23:59:59 CLS Outpatient DOMI RODAS MD [facility] RAD OVARIAN CYST [id number] 04/01/2015 10:06:00 04/01/2015 23:59:59 CLS Outpatient KRZYSZTOF CARTER [facility] RAD METRORRHIGIA [id number] 03/23/2015 21:40:00 03/24/2015 16:20:00 DIS Outpatient JOSÉ MIGUEL ESTEVEZ, JAZ Sotomayor [facility] SDC INTRACTABLE, RUQ PAIN , LEUKOCYTOSIS,UTI,SHREE VAGINO [id number] 03/18/2015 20:30:00 03/19/2015 01:33:00 DIS Emergency MAHSA DALY DO [facility] ER R RIB CAGE PAIN/NECK PAIN [id number] 12/17/2014 21:51:00 12/17/2014 22:46:00 DIS Emergency RADHA SANDERS APRN [facility] ER RASH [id number] 12/08/2014 22:18:00 12/08/2014 23:01:00 DIS Emergency RADHA SANDERS APRN [facility] ER INNER THIGH ABCESS [id number] 09/02/2018 21:35:00 ACT Emergency RADHA SANDERS APRN [facility] ER SWELLING, LOWER BACK PAIN [id number] 12/08/2014 22:19:00 Document Registration [id number] 02/28/2012 16:35:00 Document Registration [id number] 01/18/2012 11:46:00 Document Registration [id number] 02/11/2011 18:49:00 Document Registration
== END 2018-09-02 22:56 | disposition home or self-care (01) ==
LOC: EDUNIT# 21:32 → ER 21:35
DX: M54.16 Radiculopathy, lumbar region (principal); I10 Essential (primary) hypertension; R60.0 Localized edema; D72.829 Elevated white blood cell count, unspecified; N39.0 Urinary tract infection, site not specified; F17.210 Nicotine dependence, cigarettes, uncomplicated; Z88.2 Allergy status to sulfonamides; Z87.2 Personal history of diseases of the skin and subcutaneous tissue; Z86.14 Personal history of Methicillin resistant Staphylococcus aureus infection; Z90.89 Acquired absence of other organs; Z87.440 Personal history of urinary (tract) infections; Z87.448 Personal history of other diseases of urinary system; Z82.49 Family history of ischemic heart disease and other diseases of the circulatory system
CPT/HCPCS: 36415; 80053; 81000; 83880; 84439; 84443; 84703; 85007; 85027; 87088

== ENCOUNTER → 2018-09-26 | Outpatient (CLI) | payer SELFPAY ==
[~2018-09-26] MED LIST changes: +DOXY100T19 PO; +HYDR25TA4 PO
== END ==
LOC: CARD 14:07
PROVIDERS: ATTEND Nurse Practitioner
DX: R06.02 Shortness of breath (principal)
CPT/HCPCS: 93306

== ENCOUNTER 2019-06-19 13:59 | Emergency (ER) | payer SELFPAY ==
[~2019-06-19] VITALS: Ht 160 cm; Wt 127.0 kg
[~2019-06-19 13:59] MED LIST changes: -TIZA4TAB3 PO; +TIZA4TAB4 PO
--- NOTE | 2019-06-19 14:50 | ED Upper Extremity ---
General Chief Complaint: Upper Extremity Stated Complaint: POSS CRACKED LEFT ARM Nursing Triage Note: ARRIVED VIA AMB TO TRIAGE. STATES SHE FELL YESTERDAY EVENING HURTING HER LEFT ARM. Nursing Sepsis Screen: No Definite Risk Source: patient Exam Limitations: no limitations History of Present Illness Date Seen by Provider: Jun 19, 2019 Time Seen by Provider: 14:48 Initial Comments Fell on left arm last night falling off the porch. Hx left humerus fracture with operative repair in 2008. Onset: yesterday Severity: moderate Pain/Injury Location: left arm Method of Injury: fell Modifying Factors: Improves With Movement Allergies and Home Medications Allergies Coded Allergies: Sulfa (Sulfonamide Antibiotics) (Verified Allergy, Unknown, 05/04/16) Home Medications No Active Prescriptions or Reported Meds Patient Home Medication List Home Medication List Reviewed: Yes Review of Systems Constitutional: see HPI EENTM: see HPI Respiratory: no symptoms reported Cardiovascular: no symptoms reported Genitourinary: no symptoms reported Musculoskeletal: see HPI Skin: no symptoms reported Psychiatric/Neurological: No Symptoms Reported Past Siftlhd-Halaaw-Rmclcl Hx Patient Social History Alcohol Use: Denies Use Alcohol Beverage of Choice: Vodka Recreational Drug Use: No Smoking Status: Current Everyday Smoker Type Used: Cigarettes Recent Foreign Travel: No Contact w/Someone Who Travel: No Recent Infectious Disease Expo: No Recent Hopitalizations: Yes (Jun MRSA INFECTION) Immunizations Up To Date Tetanus Booster (TDap): Unknown PED Vaccines UTD: Yes Seasonal Allergies Seasonal Allergies: No Past Medical History Surgeries: Yes (I&D of abscesses) Orthopedic, Tonsillectomy Respiratory: No Currently Using BIPAP: No Cardiac: No Neurological: No Reproductive Disorders: Yes Female Reproductive Disorders: Polycystic Ovarian Dis Sexually Transmitted Disease: No HIV/AIDS: No Genitourinary: No UTI-Chronic Gastrointestinal: No Musculoskeletal: Yes Fractures Endocrine: No HEENT: No Loss of Vision: Denies Hearing Impairment: Denies Cancer: No Psychosocial: No Integumentary: Yes (hidradenitis) Blood Disorders: No Adverse Reaction/Blood Tranf: No Family Medical History Diabetes mellitus Maternal grandmother Paternal grandmother1 FHx: heart disease Maternal grandmother No Pertinent Family Hx Physical Exam Vital Signs Vital Signs - First Documented 06/19/19 14:10 Temp 36.7 Pulse 88 Resp 16 B/P (MAP) 153/93 (113) Pulse Ox 98 Capillary Refill : Less Than 3 Seconds Height, Weight, BMI Height: 5'3.00" Weight: 180lbs. 3.1oz. 81.343258im; 49.00 BMI Method:Estimated General Appearance: WD/WN, no apparent distress HEENT: PERRL/EOMI, normal ENT inspection Neck: non-tender, full range of motion Respiratory: normal breath sounds, no respiratory distress, no accessory muscle use Shoulder: normal inspection Elbow/Forearm: normal inspection, non-tender, pain (left upper arm, minimal bruising, no deformity) Wrist: Yes normal inspection, Yes non-tender Neurologic/Psychiatric: alert, normal mood/affect, oriented x 3 Skin: normal color, warm/dry Progress/Results/Core Measures Results/Orders My Orders Orders - RADHA SANDERS APRN Humerus, Left, 2 Views (06/19/19 14:46) Vital Signs/I&O 06/19/19 14:10 Temp 36.7 Pulse 88 Resp 16 B/P (MAP) 153/93 (113) Pulse Ox 98 Blood Pressure Mean: 113 POS Departure Impression Primary Impression: Contusion of arm Qualified Codes: S40.022A - Contusion of left upper arm, initial encounter Disposition: HOME, SELF-CARE Condition: Stable Departure-Patient Inst. Decision time for Depature: 15:10 Referrals: [facility] (PCP/Family) Primary Care Physician Patient Instructions: Contusion (DC) Add. Discharge Instructions: 1. Return to ER for any concerns 2. Follow-up with your doctor next week 3. All discharge instructions reviewed with patient and/or family. Voiced understanding. Scripts No Active Prescriptions or Reported Meds RADHA SANDERS APRN Jun 19, 2019 14:50 POS
--- NOTE | 2019-06-19 15:05 | Diagnostic Imaging Report ---
INDICATION: Fall with left arm pain. TIME OF EXAMINATION: 3:03 PM. TECHNIQUE: Two views of the left humerus were obtained. FINDINGS: The alignment at the shoulder and elbow appears normal. A plate and numerous screws transfix the distal humerus. No hardware fracture or loosening is seen. IMPRESSION: Postop changes. No acute abnormality is detected. Dictated by: Dictated on workstation # [id number]
[2019-06-19 15:21] VITALS: BP 153/93
== END 2019-06-19 15:20 | disposition home or self-care (01) ==
LOC: EDUNIT# 13:59 → ER 14:01
DX: S40.022A Contusion of left upper arm, initial encounter (principal); F17.210 Nicotine dependence, cigarettes, uncomplicated; Z90.89 Acquired absence of other organs; Z87.440 Personal history of urinary (tract) infections; Z87.81 Personal history of (healed) traumatic fracture; Z88.2 Allergy status to sulfonamides; Z82.49 Family history of ischemic heart disease and other diseases of the circulatory system; W17.89XA Other fall from one level to another, initial encounter
CPT/HCPCS: 73060

== ENCOUNTER 2020-01-21 09:11 | Emergency (ER) | payer SELFPAY ==
[~2020-01-21] VITALS: Ht 160 cm; Wt 113.0 kg
[~2020-01-21 09:11] MED LIST changes: -DOXY100T19 PO; +DOXY100T31 PO; -MINO100C2 PO; +MINO100C5 PO; +TRM50T PO
[2020-01-21] MEDS ORDERED: LACTATED RINGERS 1,000 ML IV ONE ×2 (09:19→09:31)
[2020-01-21] MEDS ORDERED: KETOROLAC 30 MG/ML VIAL IVP ONE (09:30)
[2020-01-21] MEDS ORDERED: KETOROLAC 30 MG/ML VIAL ONE (09:31)
[2020-01-21 09:47] LABS: BASOPHILS % (AUTO) 0 % (0-10); EOSINOPHILS # (AUTO) 0.2 10^3/uL (0.0-0.3); EOSINOPHILS % (AUTO) 1 % (0-10); HEMATOCRIT 48 % (35-52); HEMOGLOBIN 16.6 G/DL (11.5-16.0); LYMPHOCYTES % (AUTO) 26 % (12-44); MEAN CORPUSCULAR HEMOGLOBIN 34 PG (25-34); MEAN CORPUSCULAR HGB CONC 35 G/DL (32-36); MEAN CORPUSCULAR VOLUME 97 FL (80-99); MEAN PLATELET VOLUME 9.4 FL (7.4-10.4); MONOCYTES # (AUTO) 1.4 X 10^3 (0.0-1.0); MONOCYTES % (AUTO) 7 % (0-12); NEUTROPHILS # (AUTO) 12.4 X 10^3 (1.8-7.8); NEUTROPHILS % (AUTO) 65 % (42-75); PLATELET COUNT 392 10^3/uL (130-400); RED CELL DISTRIBUTION WIDTH 12.8 % (10.0-14.5)
--- NOTE | 2020-01-21 09:48 | ED General ---
General Chief Complaint: Chest Wall Stated Complaint: NECK / L SIDE CHEST PAIN Source of Information: Patient History of Present Illness Date Seen by Provider: Jan 21, 2020 Time Seen by Provider: 09:15 Initial Comments PT ARRIVES VIA POV FROM HOME C/O "WHOLE LEFT SIDE HURTING" X 2 HOURS C/O PAIN TO LEFT LATERAL NECK, LEFT SHOULDER, LEFT UPPER CHEST, LEFT UPPER BACK STATES IT HURTS TO BREATHE STATES SHE FEELS SHORT OF BREATH BECAUSE IT HURTS TO BREATHE--USED AN OLD INHALER OF HER 'S PRIOR TO ARRIVAL NO COUGH TOOK 1 ADVIL AT 2200 LAST NIGHT PT LATER STATES SHE WAS TESTED FOR COVID-19 LAST Wednesday01/17/20 AT [facility] [address] THROUGH TESTING, BECAUSE SHE HAS BEEN SICK WITH SORE THROAT AND BODY ACHES SINCE LAST Wednesday01/15/20--DOES NOT KNOW TEST RESULTS YET NO KNOWN FEVER HAD SWEATS/CHILLS EARLIER IN THE WEEK NO NAUSEA/VOMITING/DIARRHEA/ABDOMINAL PAIN NO CHANGE IN TASTE OR SMELL NO KNOWN SICK CONTACTS, BUT PT WORKS AT [employer]--2-3 MONTHS AGO, NO CONTROL. 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) PCP: [facility] Allergies and Home Medications Allergies Coded Allergies: Sulfa (Sulfonamide Antibiotics) (Verified Allergy, Unknown, 05/04/16) Home Medications Azithromycin 500 Mg Tablet, 500 MG PO DAILY Prescribed by: THALIA MALIN on 01/21/20 1031 Patient Home Medication List Home Medication List Reviewed: Yes Review of Systems Review of Systems Constitutional: see HPI, chills, diaphoresis; No dizziness, No fever; malaise, weakness EENTM: throat pain Respiratory: see HPI, cough, short of breath Cardiovascular: see HPI, chest pain Gastrointestinal: no symptoms reported; No abdominal pain, No constipation, No loss of appetite, No nausea, No vomiting Genitourinary: no symptoms reported : No Musculoskeletal: see HPI, back pain, other (BODY ACHES) Skin: no symptoms reported Psychiatric/Neurological: No Symptoms Reported Hematologic/Lymphatic: No Symptoms Reported Immunological/Allergic: no symptoms reported Past Hoixpap-Exxbvh-Unnfpb Hx Past Med/Social Hx: Reviewed and Corrections made Patient Social History Alcohol Use: Occasionally Uses Alcohol Beverage of Choice: Vodka Recreational Drug Use: Yes (DENIES, BUT UDS + FOR AMPHETAMINES AND THC 01/21/20) Drug of Choice: DENIES BUT UDS + FOR AMPHETAMINES AND THC 01/21/20 Smoking Status: Current Everyday Smoker (1 PPD) Type Used: Cigarettes Recent Foreign Travel: No Contact w/Someone Who Travel: No Recent Hopitalizations: Yes (Jun MRSA INFECTION) Immunizations Up To Date Tetanus Booster (TDap): Unknown PED Vaccines UTD: Yes Seasonal Allergies Seasonal Allergies: No Past Medical History Surgeries: Yes (I&DOF ABSCESSES; LEFT HUMERUS FX/ORIF) Adenoidectomy, Orthopedic, Tonsillectomy Respiratory: No Currently Using BIPAP: No Cardiac: Yes Hypertension Neurological: No Reproductive Disorders: Yes Female Reproductive Disorders: Menstrual Problems, Polycystic Ovarian Dis Sexually Transmitted Disease: No HIV/AIDS: No Genitourinary: Yes UTI-Chronic Gastrointestinal: No Musculoskeletal: Yes (LEFT HUMERUS FX/ORIF-PLATE) Fractures Endocrine: Yes (OBESITY) HEENT: Yes (S/P T & A ) Loss of Vision: Denies Hearing Impairment: Denies Cancer: No Psychosocial: No Integumentary: Yes (MULTIPLE ABSCESSES; HYDRADENITIS) Blood Disorders: No Adverse Reaction/Blood Tranf: No Family Medical History Diabetes mellitus Maternal grandmother Paternal grandmother1 FHx: heart disease Maternal grandmother No Pertinent Family Hx Physical Exam Vital Signs Vital Signs - First Documented 01/21/20 09:15 Temp 36.8 Pulse 110 Resp 13 B/P (MAP) 137/105 (116) Pulse Ox 99 O2 Delivery Room Air Capillary Refill : Height, Weight, BMI Height: 5'3.00" Weight: 180lbs. 3.1oz. [id number]; 49.00 BMI Method:Estimated General Appearance: No Apparent Distress, Obese, Other (SOMEWHAT DRAMATIC) HEENT: PERRL/EOMI, TMs Normal, Normal ENT Inspection, Pharynx Normal, Moist Mucous Membranes, Other (NO NASAL CONGESTION OR DRAINAGE. NO SINUS TENDERNESS) Neck: Full Range of Motion, Normal Inspection, Non Tender, Supple; No Carotid Bruit, No JVD Respiratory: Normal Breath Sounds, No Accessory Muscle Use, Other (LEFT UPPER CHEST TENDER--PALPITATION REPRODUCES PAIN ) Cardiovascular: No Edema, No JVD, No Murmur, Normal Peripheral Pulses, Tachycardia (110'S) Gastrointestinal: Normal Bowel Sounds, No Organomegaly, No Pulsatile Mass, Soft, Tenderness (MILD EPIGASTRIC TENDERNESS) Back: No CVA Tenderness, No Vertebral Tenderness, Other (LEFT UPPER BACK TENDERNESS) Extremity: Normal Capillary Refill, Normal Range of Motion, No Calf Tenderness, No Pedal Edema, Other (LEFT SHOULDER TENDERNESS) Neurologic/Psychiatric: Alert, Oriented x3, No Motor/Sensory Deficits, masticator II- XII Norm as Tested Skin: Normal Color, Warm/Dry; No Rash Progress/Results/Core Measures Suspected Sepsis SIRS Temperature: Pulse: Respiratory Rate: Laboratory Tests 01/21/20 09:25: White Blood Count 19.0H Blood Pressure / Mean: Laboratory Tests 01/21/20 09:25: Creatinine 0.84, INR Comment 1.0, Platelet Count 392, Total Bilirubin 0.7 Results/Orders Lab Results Laboratory Tests Test 01/21/20 09:25 01/21/20 09:30 01/21/20 09:33 01/21/20 10:50 Range/Units White Blood Count 19.0 H 4.3-11.0 10^3/uL Red Blood Count 4.95 4.35-5.85 10^6/uL Hemoglobin 16.6 H 11.5-16.0 G/DL Hematocrit 48 35-52 % Mean Corpuscular Volume 97 80-99 FL Mean Corpuscular Hemoglobin 34 25-34 PG Mean Corpuscular Hemoglobin Concent 35 32-36 G/DL Red Cell Distribution Width 12.8 10.0-14.5 % Platelet Count 392 130-400 10^3/uL Mean Platelet Volume 9.4 7.4-10.4 FL Neutrophils (%) (Auto) 65 42-75 % Lymphocytes (%) (Auto) 26 12-44 % Monocytes (%) (Auto) 7 0-12 % Eosinophils (%) (Auto) 1 0-10 % Basophils (%) (Auto) 0 0-10 % Neutrophils # (Auto) 12.4 H 1.8-7.8 X 10^3 Lymphocytes # (Auto) 5.0 H 1.0-4.0 X 10^3 Monocytes # (Auto) 1.4 H 0.0-1.0 X 10^3 Eosinophils # (Auto) 0.2 0.0-0.3 10^3/uL Basophils # (Auto) 0.0 0.0-0.1 10^3/uL Neutrophils % (Manual) 65 % Lymphocytes % (Manual) 29 % Monocytes % (Manual) 4 % Eosinophils % (Manual) 2 % Basophils % (Manual) 0 % Band Neutrophils 0 % Blood Morphology Comment NORMAL Erythrocyte Sedimentation Rate 3 0-20 MM/HR Prothrombin Time 13.2 12.2-14.7 SEC INR Comment 1.0 0.8-1.4 Activated Partial Thromboplast Time 28 24-35 SEC D-Dimer 0.34 0.00-0.49 UG/ML Sodium Level 136 135-145 MMOL/L Potassium Level 4.2 3.6-5.0 MMOL/L Chloride Level 102 98-107 MMOL/L Carbon Dioxide Level 21 21-32 MMOL/L Anion Gap 13 5-14 MMOL/L Blood Urea Nitrogen 10 7-18 MG/DL Creatinine 0.84 0.60-1.30 MG/DL Estimat Glomerular Filtration Rate > 60 BUN/Creatinine Ratio 12 Glucose Level 254 H 70-105 MG/DL Calcium Level 9.7 8.5-10.1 MG/DL Corrected Calcium 8.5-10.1 MG/DL Magnesium Level 1.9 1.6-2.4 MG/DL Total Bilirubin 0.7 0.1-1.0 MG/DL Aspartate Amino Transf (AST/SGOT) 22 5-34 U/L Alanine Aminotransferase (ALT/SGPT) 32 0-55 U/L Alkaline Phosphatase 67 40-136 U/L Lactate Dehydrogenase 219 125-220 U/L Total Creatine Kinase 103 29-168 U/L Creatine Kinase MB 1.9 <6.6 NG/ML Troponin I < 0.028 <0.028 NG/ML C-Reactive Protein High Sensitivity 1.41 H 0.00-0.50 MG/DL B-Type Natriuretic Peptide < 10.0 <100.0 PG/ML Total Protein 7.8 6.4-8.2 GM/DL Albumin 4.6 H 3.2-4.5 GM/DL Amylase Level 55 25-125 U/L Lipase 57 8-78 U/L Procalcitonin 0.02 <0.10 NG/ML Serum Test, Qualitative NEGATIVE NEGATIVE Urine Color YELLOW Urine Clarity CLEAR Urine pH 7.0 5-9 Urine Specific [place] 1.015 L 1.016-1.022 Urine Protein NEGATIVE NEGATIVE Urine Glucose (UA) 3+ H NEGATIVE Urine Ketones NEGATIVE NEGATIVE Urine Nitrite NEGATIVE NEGATIVE Urine Bilirubin NEGATIVE NEGATIVE Urine Urobilinogen 0.2 < = 1.0 MG/DL Urine Leukocyte Esterase NEGATIVE NEGATIVE Urine RBC (Auto) NEGATIVE NEGATIVE Urine RBC RARE /HPF Urine WBC RARE /HPF Urine Squamous Epithelial Cells 2-5 /HPF Urine Crystals NONE /LPF Urine Bacteria NEGATIVE /HPF Urine Casts NONE /LPF Urine Mucus NEGATIVE /LPF Urine Culture Indicated NO Urine Opiates Screen NEGATIVE NEGATIVE Urine Oxycodone Screen NEGATIVE NEGATIVE Urine Methadone Screen NEGATIVE NEGATIVE Urine Propoxyphene Screen NEGATIVE NEGATIVE Urine Barbiturates Screen NEGATIVE NEGATIVE Ur Tricyclic Antidepressants Screen NEGATIVE NEGATIVE Urine Phencyclidine Screen NEGATIVE NEGATIVE Urine Amphetamines Screen POSITIVE H NEGATIVE Urine Methamphetamines Screen NEGATIVE NEGATIVE Urine Benzodiazepines Screen NEGATIVE NEGATIVE Urine Cocaine Screen NEGATIVE NEGATIVE Urine Cannabinoids Screen POSITIVE H NEGATIVE My Orders Orders - THALIA MALIN DO Ed Iv/Invasive Line Start (01/21/20 09:15) Urine Bedside (01/21/20 09:15) Ekg Tracing (01/21/20 09:15) Monitor-Rhythm Ecg Trace Only (01/21/20 09:15) Amylase (01/21/20 09:15) BNP (01/21/20 09:15) Cbc With Automated Diff (01/21/20 09:15) Comprehensive Metabolic Panel (01/21/20 09:15) Creatine Kinase (01/21/20 09:15) Creatine Kinase Mb (01/21/20 09:15) Drug Screen Stat (Urine) (01/21/20 09:15) Lipase (01/21/20 09:15) Magnesium (01/21/20 09:15) Protime With Inr (01/21/20 09:15) Partial Thromboplastin Time (01/21/20 09:15) Ua Culture If Indicated (01/21/20 09:15) Troponin I (01/21/20 09:15) Fibrin Degradation Products (01/21/20 09:19) Procalcitonin (Pct) (01/21/20 09:19) Hs C Reactive Protein (01/21/20 09:19) Erythrocyte Sedimentation Rate (01/21/20 09:19) LDH (01/21/20 09:19) Chest 1 View, Ap/Pa Only (01/21/20 09:19) Coronavirus Sars-Cov-2 So 2019 (01/21/20 09:19) Hcg,Qualitative Serum (01/21/20 09:19) Ketorolac Injection (Toradol Injection) (01/21/20 09:30) Ed Iv/Invasive Line Start (01/21/20 09:19) Lactated Ringers (Lr 1000 Ml Iv Solution (01/21/20 09:19) Ketorolac Injection (Toradol Injection) (01/21/20 09:31) Lactated Ringers (Lr 1000 Ml Iv Solution (01/21/20 09:31) Manual Differential (01/21/20 09:25) Ed Iv/Invasive Line Start (01/21/20 10:24) Ns Iv 1000 Ml (Sodium Chloride 0.9%) (01/21/20 10:24) Azithromycin Tablet (Zithromax Tablet) (01/21/20 10:30) Hemoglobin A1c (01/21/20 10:28) Medications Given in ED Current Medications Medications Dose Ordered Sig/Kyler Route Start Time Stop Time Status Last Admin Dose Admin Azithromycin 500 mg ONCE ONCE PO 01/21/20 10:30 01/21/20 10:31 DC 01/21/20 10:57 500 MG Ketorolac Tromethamine 30 mg ONCE ONCE IVP 01/21/20 09:30 01/21/20 09:35 DC 01/21/20 09:41 30 MG Lactated Ringer's 1,000 ml @ 0 mls/hr Q0M ONCE IV 01/21/20 09:19 01/21/20 09:35 DC 01/21/20 09:41 1,000 MLS/HR Vital Signs/I&O 01/21/20 09:15 Temp 36.8 Pulse 110 Resp 13 B/P (MAP) 137/105 (116) Pulse Ox 99 O2 Delivery Room Air Capillary Refill : Progress Note : Progress Note PT PLACED IN ISOLATION ROOM. PPE WORN AT ALL TIMES COVID-19 TESTING PERFORMED GIVEN IV FLUIDS AND TORADOL WITH IMPROVEMENT IN SYMPTOMS ECG Initial ECG Impression Date: Jan 21, 2020 Initial ECG Impression Time: 09:22 Initial ECG Rate: 104 Initial ECG Rhythm: S.Tach Diagnostic Imaging Comments CXR--NO ACUTE PROCESS, PER RADIOLOGIST REPORT AT 1025 Reviewed: Reviewed by Me Departure Impression Primary Impression: COVID P.U.I. Additional Impressions: Left-sided chest wall pain Hyperglycemia Illicit drug use Disposition: 01 HOME, SELF-CARE Condition: Improved Departure-Patient Inst. Referrals: [facility] (PCP/Family) Primary Care Physician Patient Instructions: Chest Pain That Is Not Caused by the Heart (DC), Coronavirus Disease 2019 (COVID-19) (DC), How to Keep Track of Your Blood Sugar, Hyperglycemia, Adult (DC) Add. Discharge Instructions: TYLENOL AND MOTRIN NEEDED FOR PAIN OR FEVER LOTS OF FLUIDS FOLLOW UP WITH [facility] IN 1-2 WEEKS FOR FURTHER CARE QUARANTINE YOURSELF AND ALL HOUSEHOLD MEMBERS FOR THEN NEXT 2 WEEKS--NO ONE ENTE RS OR LEAVES YOUR HOUSE FOR THE NEXT 2 WEEKS All discharge instructions reviewed with patient and/or family. Voiced understanding. Scripts Azithromycin (Zithromax) 500 Mg Tablet 500 MG PO DAILY for 5 Days, #5 TAB Prov: THALIA MALIN DO 01/21/20 THALIA MALIN DO Jan 21, 2020 09:48
[2020-01-21 09:50] LABS: BILIRUBIN,URINE NEGATIVE (NEGATIVE); CLARITY,URINE CLEAR; COLOR,URINE YELLOW; GLUCOSE, URINE (UA) 3+ (NEGATIVE); KETONES,URINE NEGATIVE (NEGATIVE); LEUKOCYTE ESTERASE ,URINE NEGATIVE (NEGATIVE); NITRITE,URINE NEGATIVE (NEGATIVE); PROTEIN,URINE NEGATIVE (NEGATIVE)
[2020-01-21 09:57] LABS: BACTERIA,URINE NEGATIVE /HPF; RBC,URINE RARE /HPF; WBC,URINE RARE /HPF
[2020-01-21 09:58] LABS: ALBUMIN 4.6 GM/DL (3.2-4.5); CHLORIDE 102 MMOL/L (98-107); POTASSIUM 4.2 MMOL/L (3.6-5.0); SODIUM 136 MMOL/L (135-145)
[2020-01-21 09:59] LABS: AMYLASE 55 U/L (25-125); CALCIUM 9.7 MG/DL (8.5-10.1)
[2020-01-21 10:00] LABS: GLUCOSE 254 MG/DL (70-105); TOTAL PROTEIN 7.8 GM/DL (6.4-8.2)
[2020-01-21 10:01] LABS: CARBON DIOXIDE 21 MMOL/L (21-32)
[2020-01-21 10:02] LABS: BILIRUBIN,TOTAL 0.7 MG/DL (0.1-1.0); FIBRIN DEGRADATION PRODUCTS 0.34 UG/ML (0.00-0.49); PROTHROMBIN TIME PATIENT 13.2 SEC (12.2-14.7)
[2020-01-21 10:04] LABS: ALKALINE PHOSPHATASE 67 U/L (40-136); CREATININE SERUM 0.84 MG/DL (0.60-1.30); GFR ESTIMATED > 60
[2020-01-21 10:05] LABS: BUN/CREATININE RATIO 12
[2020-01-21 10:07] LABS: AMPHETAMINE SCREEN, URINE POSITIVE (NEGATIVE); BARBITURATE SCREEN URINE NEGATIVE (NEGATIVE); BENZODIAZEPINES SCREEN URINE NEGATIVE (NEGATIVE); CANNABINOID SCREEN, URINE POSITIVE (NEGATIVE); COCAINE SCREEN URINE NEGATIVE (NEGATIVE); METHADONE STAT NEGATIVE (NEGATIVE); METHAMPHETAMINE SCREEN URINE S NEGATIVE (NEGATIVE); OPIATE SCREEN URINE NEGATIVE (NEGATIVE); OXYCODONE STAT NEGATIVE (NEGATIVE); PROPOXYPHENE STAT NEGATIVE (NEGATIVE); TRICYCLIC ANTIDEPRESSANTS SCRE NEGATIVE (NEGATIVE)
[2020-01-21 10:07] LABS: ALANINE AMINOTRANSFERASE 32 U/L (0-55); MAGNESIUM 1.9 MG/DL (1.6-2.4)
[2020-01-21 10:08] LABS: CREATINE KINASE 103 U/L (29-168); LIPASE 57 U/L (8-78)
[2020-01-21 10:15] LABS: CREATINE KINASE MB 1.9 NG/ML (<6.6)
[2020-01-21 10:19] LABS: BAND NEUTROPHILS 0 %; BASOPHILS % (MANUAL) 0 %; EOSINOPHILS % (MANUAL) 2 %; LYMPHOCYTES % (MANUAL) 29 %; MONOCYTES % (MANUAL) 4 %; NEUTROPHILS % (MANUAL) 65 %
[2020-01-21 10:20] LABS: ERYTHROCYTE SEDIMENTATION RATE 3 MM/HR (0-20); RBC MORPH NORMAL
--- NOTE | 2020-01-21 10:21 | Diagnostic Imaging Report ---
EXAMINATION: Chest 1 view HISTORY: Left-sided shoulder pain COMPARISON: 09/06/2017 FINDINGS: The study is underpenetrated. The lungs are clear without edema or pneumonia. No pleural effusion or pneumothorax. Heart size is normal. IMPRESSION: 1. Clear lungs. Dictated by: Dictated on workstation # [id number]
[2020-01-21] MEDS ORDERED: NS IV 1000 ML 1,000 ML IV SCH (10:24)
[2020-01-21] MEDS ORDERED: AZITHROMYCIN 250 MG TAB (ZITHROMAX) PO ONE (10:30)
[2020-01-21] MEDS ORDERED: AZIT500T PO (10:31)
[2020-01-21 12:02] VITALS: BP 158/94
== END 2020-01-21 11:51 | disposition home or self-care (01) ==
LOC: EDUNIT# 09:11 → ER 09:13
DX: R07.89 Other chest pain (principal); R73.9 Hyperglycemia, unspecified; F15.90 Other stimulant use, unspecified, uncomplicated; F12.90 Cannabis use, unspecified, uncomplicated; E66.9 Obesity, unspecified; F17.210 Nicotine dependence, cigarettes, uncomplicated; Z20.828 Contact with and (suspected) exposure to other viral communicable diseases; Z91.14 Patient's other noncompliance with medication regimen; Z88.2 Allergy status to sulfonamides; Z68.42 Body mass index [BMI] 45.0-49.9, adult; Z82.49 Family history of ischemic heart disease and other diseases of the circulatory system
CPT/HCPCS: 71045; 80053; 80306; 81000; 82150; 82550; 82553; 83036; 83615; 83690; 83735; 83880; 84145; 84484; 84703 ×2; 85007; 85027; 85379; 85610; 85652; 85730; 86141; 93005; 93041; 96361; 96374; 99284; U0002; 36415; 87635

== ENCOUNTER 2021-02-25 23:34 | Emergency (ER) | payer SELFPAY ==
[~2021-02-25 23:34] MED LIST changes: +AZIT500T PO; -CIPR500T4 PO; +CIPR500T5 PO; -CLIN300C11 PO; +CLIN300C12 PO; -SULF1TAB35 PO
[2021-02-26 00:10] LABS: BILIRUBIN,URINE NEGATIVE (NEGATIVE); CLARITY,URINE CLEAR; COLOR,URINE YELLOW; GLUCOSE, URINE (UA) NEGATIVE (NEGATIVE); KETONES,URINE NEGATIVE (NEGATIVE); LEUKOCYTE ESTERASE ,URINE NEGATIVE (NEGATIVE); NITRITE,URINE NEGATIVE (NEGATIVE); PH,URINE 7.5 (5-9); PROTEIN,URINE NEGATIVE (NEGATIVE)
[2021-02-26 00:18] LABS: BACTERIA,URINE TRACE /HPF
--- NOTE | 2021-02-26 01:02 | ED GU-Female ---
General Chief Complaint: - Urinary Stated Complaint: POSS KIDNEY INFECTION,FEVER,CLOUDY URINE Nursing Triage Note: TO ED VIA POV AND AMBULATORY TO ROOM 7 WITH C/O LOWER BACK PAIN, PELVIC PAIN, CLOUDY URINE, "FEVERISH" FOR ONE WEEK. Source: patient Exam Limitations: no limitations (VIANEY BLANCAS STUDENT) History of Present Illness Date Seen by Provider: Feb 26, 2021 Time Seen by Provider: 00:35 Initial Comments Pt presents to ED via private conveyance with complaints of chills, diaphoresis, abd pain, dysuria. She states that her symptoms began last Wednesday02/17/21. She has been having suprapubic pain that radiates to her R flank with urination that she rates 6/10, her urine has been intermittently cloudy, and she has been having chills/sweats but denies fevers. She states that her symptoms feel si milar to a few years ago when she had a kidney infection. She also has 4/10 pain to her RUQ, worse with palpation and meals, that she has not experienced previously. She has been nauseated intermittently but has only vomited once last week. Her mother had a cholecystectomy 10 years ago and her father has diverticulitis. Denies other complaints of chest pain, SOB. She would like a note for work. Timing/Duration: other (10 days) Severity/Quality: moderate, stabbing Location: suprapubic Radiation: right flank Activities at Onset: other (urinating) Prior Genitourinary Problems: similar symptoms (history of kidney infection) Sexual [place] History: single partner Modifying Factors: Worsens With Eating, Worsens With Movement, Worsens With Palpation; Improves With Resting; Worsens With Urinating Associated Symptoms: abdominal pain (RUQ mildly tender to palpation, worse with eating), diaphoresis, dysuria, fever/chills, nausea/vomiting (VIANEY BLANCAS STUDENT) Allergies and Home Medications Allergies Coded Allergies: Sulfa (Sulfonamide Antibiotics) (Verified Allergy, Unknown, 05/04/16) Home Medications Azithromycin 500 Mg Tablet, 500 MG PO DAILY Prescribed by: THALIA MLAIN on 01/21/20 1031 Omeprazole 40 Mg Capsule.dr, 40 MG PO DAILY Prescribed by: VALDEZ SCHAEFER on 02/26/21 0140 Patient Home Medication List Home Medication List Reviewed: Yes (VIANEY BLANCAS) Review of Systems Review of Systems Constitutional: chills, diaphoresis; No fever EENTM: No hearing loss, No vision loss Respiratory: No dyspnea on exertion, No hemoptysis, No short of breath Cardiovascular: No chest pain, No edema, No palpitations Gastrointestinal: abdominal pain (suprapubic radiating to R flank, RUQ); No constipation, No diarrhea, No loss of appetite; nausea, vomiting Genitourinary: dysuria, flank pain (R flank); denies hematuria Musculoskeletal: back pain (R lower back); No joint pain Skin: No change in color, No change in hair/nails Psychiatric/Neurological: Denies Headache, Denies Numbness, Denies Paresthesia (VIANEY BLANCAS) All Other Systemes Reviewed Negative Unless Noted: Yes (VIANEY BLANCAS) Past Owfelnr-Mgzzzk-Crivce Hx Patient Social History Tobacco Use?: Yes Substance use?: Yes Substance type: Marijuana Alcohol Use?: Yes Alcohol Frequency: Once in a while (VIANEY BLANCAS) Immunizations Up To Date Tetanus Booster (TDap): Unknown PED Vaccines UTD: Yes COVID19 Vaccine Regroover: NO VAX (VIANEY BLANCAS) Seasonal Allergies Seasonal Allergies: No (VIANEY BLANCAS) Past Medical History Surgery/Hospitalization HX: TYPE 2 DM ORTHO SX Surgeries: Yes (I&DOF ABSCESSES; LEFT HUMERUS FX/ORIF) Adenoidectomy, Orthopedic, Tonsillectomy Respiratory: No Currently Using BIPAP: No Cardiac: Yes Hypertension Neurological: No Reproductive Disorders: Yes Female Reproductive Disorders: Menstrual Problems, Polycystic Ovarian Dis Sexually Transmitted Disease: No HIV/AIDS: No Genitourinary: Yes UTI-Chronic Gastrointestinal: No Musculoskeletal: Yes (LEFT HUMERUS FX/ORIF-PLATE) Fractures Endocrine: Yes (OBESITY) HEENT: Yes (S/P T & A ) Loss of Vision: Denies Hearing Impairment: Denies Cancer: No Psychosocial: No Integumentary: Yes (MULTIPLE ABSCESSES; HYDRADENITIS) Blood Disorders: No Adverse Reaction/Blood Tranf: No (VIANEY BLANCAS) Family Medical History Diabetes mellitus Maternal grandmother Paternal grandmother1 FHx: heart disease Maternal grandmother No Pertinent Family Hx (YONNY,VIANEY MED STUDENT) Physical Exam Vital Signs Vital Signs - First Documented 02/25/21 23:57 Temp 36.4 Pulse 91 Resp 16 B/P (MAP) 137/102 (114) Pulse Ox 100 O2 Delivery Room Air (VALDEZ SCHAEFER) Vital Signs Capillary Refill : Less Than 3 Seconds (VIANEY BLANCAS STUDENT) Height, Weight, BMI Height: 5'3.00" Weight: 180lbs. 3.1oz. 81.862045wn; 44.00 BMI Method:Estimated General Appearance: WD/WN, no apparent distress, obese HEENT: PERRL/EOMI, normal ENT inspection, pharynx normal Neck: non-tender, full range of motion, supple, normal inspection Cardiovascular: normal peripheral pulses, regular rate, rhythm, no edema, no murmur Respiratory: chest non-tender, lungs clear, normal breath sounds, no respiratory distress, no accessory muscle use Gastrointestinal: normal bowel sounds, soft; No distended, No guarding, No rebound; tenderness (mild tenderness suprapubic and RUQ) Rectal: deferred Back: normal inspection, no CVA tenderness, no vertebral tenderness Extremities: normal range of motion, non-tender, normal inspection, no pedal edema, no calf tenderness, normal capillary refill Neurologic/Psychiatric: no motor/sensory deficits, alert, normal mood/affect, oriented x 3 Skin: normal color, diaphoresis Lymphatic: no adenopathy (VIANEY BLANCAS STUDENT) Progress/Results/Core Measures Suspected Sepsis SIRS Temperature: Pulse: 91 Respiratory Rate: 16 Blood Pressure 137 /102 Mean: 114 (VIANEY BLANCAS STUDENT) Results/Orders Lab Results Laboratory Tests Test 02/25/21 23:59 02/26/21 00:58 Range/Units Urine Color YELLOW Urine Clarity CLEAR Urine pH 7.5 5-9 Urine Specific [place] 1.020 1.016-1.022 Urine Protein NEGATIVE NEGATIVE Urine Glucose (UA) NEGATIVE NEGATIVE Urine Ketones NEGATIVE NEGATIVE Urine Nitrite NEGATIVE NEGATIVE Urine Bilirubin NEGATIVE NEGATIVE Urine Urobilinogen 1.0 < = 1.0 MG/DL Urine Leukocyte Esterase NEGATIVE NEGATIVE Urine RBC (Auto) NEGATIVE NEGATIVE Urine RBC NONE /HPF Urine WBC NONE /HPF Urine Squamous Epithelial Cells 10-25 H /HPF Urine Crystals NONE /LPF Urine Bacteria TRACE /HPF Urine Casts NONE /LPF Urine Mucus SMALL H /LPF Urine Culture Indicated NO White Blood Count 16.2 H 4.3-11.0 10^3/uL Red Blood Count 5.11 3.80-5.11 10^6/uL Hemoglobin 16.8 H 11.5-16.0 g/dL Hematocrit 50 35-52 % Mean Corpuscular Volume 97 80-99 fL Mean Corpuscular Hemoglobin 33 25-34 pg Mean Corpuscular Hemoglobin Concent 34 32-36 g/dL Red Cell Distribution Width 12.6 10.0-14.5 % Platelet Count 416 H 130-400 10^3/uL Mean Platelet Volume 9.0 9.0-12.2 fL Immature Granulocyte % (Auto) 0 % Neutrophils (%) (Auto) 63 42-75 % Lymphocytes (%) (Auto) 29 12-44 % Monocytes (%) (Auto) 7 0-12 % Eosinophils (%) (Auto) 0 0-10 % Basophils (%) (Auto) 0 0-10 % Neutrophils # (Auto) 10.3 H 1.8-7.8 10^3/uL Lymphocytes # (Auto) 4.7 H 1.0-4.0 10^3/uL Monocytes # (Auto) 1.2 H 0.0-1.0 10^3/uL Eosinophils # (Auto) 0.1 0.0-0.3 10^3/uL Basophils # (Auto) 0.1 0.0-0.1 10^3/uL Immature Granulocyte # (Auto) 0.0 0.0-0.1 10^3/uL Neutrophils % (Manual) 63 % Lymphocytes % (Manual) 32 % Monocytes % (Manual) 5 % Blood Morphology Comment NORMAL Sodium Level 138 135-145 MMOL/L Potassium Level 4.2 3.6-5.0 MMOL/L Chloride Level 105 98-107 MMOL/L Carbon Dioxide Level 24 21-32 MMOL/L Anion Gap 9 5-14 MMOL/L Blood Urea Nitrogen 12 7-18 MG/DL Creatinine 0.76 0.60-1.30 MG/DL Estimat Glomerular Filtration Rate 90 BUN/Creatinine Ratio 16 Glucose Level 135 H 70-105 MG/DL Calcium Level 9.9 8.5-10.1 MG/DL Corrected Calcium 9.8 8.5-10.1 MG/DL Total Bilirubin 0.4 0.1-1.0 MG/DL Aspartate Amino Transf (AST/SGOT) 13 5-34 U/L Alanine Aminotransferase (ALT/SGPT) 21 0-55 U/L Alkaline Phosphatase 49 40-136 U/L C-Reactive Protein High Sensitivity 0.49 0.00-0.50 MG/DL Total Protein 7.1 6.4-8.2 GM/DL Albumin 4.1 3.2-4.5 GM/DL Lipase 45 8-78 U/L (VALDEZ SCHAEFER) My Orders Orders - VALDEZ SCHAEFER Ua Culture If Indicated (02/25/21 23:47) Urine Bedside (02/25/21 23:47) Cbc With Automated Diff (02/26/21 00:44) Comprehensive Metabolic Panel (02/26/21 00:44) Hs C Reactive Protein (02/26/21 00:44) Lipase (02/26/21 00:51) Manual Differential (02/26/21 00:58) (VALDEZ SCHAEFER) Vital Signs/I&O 02/25/21 23:57 Temp 36.4 Pulse 91 Resp 16 B/P (MAP) 137/102 (114) Pulse Ox 100 O2 Delivery Room Air (VALDEZ SCHAEFER) Vital Signs/I&O Capillary Refill : Less Than 3 Seconds (VIANEY BLANCAS MED STUDENT) Blood Pressure Mean: 114 Progress Note : Time: 01:36 Progress Note The patient's urinalysis does not support a diagnosis of pyuria or pyelonephritis. She is tender in her right upper quadrant but does not have a positive Perea sign. She says she does get pain that is worse after she eats. Her mother had a gallbladder resected about 10 years ago. While she does have a marginal elevation in her white count there is no left shift and the rest of her markers are unremarkable. She is pain-free at this time. We are going to suggest a biliary diet put her on Prilosec and have her follow-up with a general surgeon to work on an ultrasound of her right upper quadrant and further evaluation of her symptoms. I attest that I saw this patient alongside the medical student and agree with his documented history, physical exam and review of systems except as otherwise noted. (VALDEZ SCHAEFER) Departure Impression Primary Impression: Right upper quadrant abdominal pain Disposition: 01 HOME, SELF-CARE Condition: Stable Departure-Patient Inst. Decision time for Depature: 01:37 (VALDEZ SCHAEFER) Referrals: [facility] [place] ([place]/Family) Primary Care Physician LOR GERMAN DO Patient Instructions: Abdominal Pain, Adult ED Add. Discharge Instructions: I suspect you might be having pain related to your gallbladder since it worsens with food. Avoid spicy greasy foods or dairy products. Start taking omeprazole 40 mg daily for the next couple weeks to reduce your acid. Call Dr. German or your primary care doctor and request follow-up in the next week or 2. Schedule outpatient ultrasound of your gallbladder and review these results with your physician. Tums, Rolaids, Mylanta etc. as necessary for pain. Tylenol 1000 mg every 8 hours as necessary for pain. Ibuprofen 800 mg every 8 hours as necessary for pain. If you develop fever above 102.5, intractable vomiting, intractable pain or other worrisome symptoms then please return to the ER. All discharge instructions reviewed with patient and/or family. Voiced understanding. Scripts Omeprazole (Omeprazole) 40 Mg Capsule. 40 MG PO DAILY for 30 Days, #3 CAP 0 Refills Prov: VALDEZ SCHAEFER 02/26/21 Work/School Note: Work Release Form Date Seen in the Emergency Department: Feb 26, 2021 Return to Work: Feb 27, 2021 Restrictions: No Restrictions Copy Copies To 1: LOR GERMAN JOHNNY MED STUDENT Feb 26, 2021 01:02 VALDEZ SCHAEFER Feb 26, 2021 01:40
[2021-02-26 01:05] LABS: BASOPHILS # (AUTO) 0.1 10^3/uL (0.0-0.1); BASOPHILS % (AUTO) 0 % (0-10); EOSINOPHILS # (AUTO) 0.1 10^3/uL (0.0-0.3); EOSINOPHILS % (AUTO) 0 % (0-10); HEMATOCRIT 50 % (35-52); HEMOGLOBIN 16.8 g/dL (11.5-16.0); LYMPHOCYTES # (AUTO) 4.7 10^3/uL (1.0-4.0); LYMPHOCYTES % (AUTO) 29 % (12-44); MEAN CORPUSCULAR HEMOGLOBIN 33 pg (25-34); MEAN CORPUSCULAR HGB CONC 34 g/dL (32-36); MEAN CORPUSCULAR VOLUME 97 fL (80-99); MONOCYTES # (AUTO) 1.2 10^3/uL (0.0-1.0); MONOCYTES % (AUTO) 7 % (0-12); NEUTROPHILS # (AUTO) 10.3 10^3/uL (1.8-7.8); NEUTROPHILS % (AUTO) 63 % (42-75); PLATELET COUNT 416 10^3/uL (130-400); WHITE BLOOD COUNT 16.2 10^3/uL (4.3-11.0)
[2021-02-26 01:16] LABS: ALBUMIN 4.1 GM/DL (3.2-4.5); POTASSIUM 4.2 MMOL/L (3.6-5.0)
[2021-02-26 01:18] LABS: CALCIUM 9.9 MG/DL (8.5-10.1)
[2021-02-26 01:19] LABS: TOTAL PROTEIN 7.1 GM/DL (6.4-8.2)
[2021-02-26 01:21] LABS: BILIRUBIN,TOTAL 0.4 MG/DL (0.1-1.0)
[2021-02-26 01:23] LABS: CREATININE SERUM 0.76 MG/DL (0.60-1.30)
[2021-02-26 01:31] LABS: LYMPHOCYTES % (MANUAL) 32 %; MONOCYTES % (MANUAL) 5 %; NEUTROPHILS % (MANUAL) 63 %; RBC MORPH NORMAL
[2021-02-26] MEDS ORDERED: OMEP40CA6 PO (01:40)
[2021-02-26 01:50] VITALS: BP 146/74
== END 2021-02-26 01:50 | disposition home or self-care (01) ==
LOC: EDUNIT# 23:34 → ER 23:41
DX: R10.11 Right upper quadrant pain (principal); I10 Essential (primary) hypertension; E11.9 Type 2 diabetes mellitus without complications; E66.9 Obesity, unspecified; Z68.41 Body mass index [BMI] 40.0-44.9, adult
CPT/HCPCS: 36415; 80053; 81000; 83690; 84703; 85007; 85027; 86141

== ENCOUNTER 2021-11-27 17:54 | Inpatient (IN) | payer SELFPAY ==
[~2021-11-27] VITALS: Ht 172.2 cm; Wt 107.6 kg
[~2021-11-27 17:54] MED LIST changes: +CLIN-144 PO; -CLIN300C12 PO; +OMEP40CA6 PO; +TIZA-186 PO; -TIZA4TAB4 PO
[2021-11-27] MEDS ORDERED: LACTATED RINGERS 1,000 ML IV ONE (18:00)
--- NOTE | 2021-11-27 18:09 | ED General ---
General Stated Complaint: HYPOTHERMIA Source of Information: Patient (LIMITED HISTORIAN), EMS, Old Records History of Present Illness Date Seen by Provider: November 27, 2021 Time Seen by Provider: 17:53 Initial Comments PT ARRIVES VIA EMS REPORT FROM EMS IS THAT PT HAS BEEN WALKING OUT IN THE RAIN FOR ABOUT 2 HOURS AND IS CONFUSED OUTSIDE TEMP IS 65 DEGREES POLICE AND FIRE AT THE SCENE REPORTED TO EMS THAT PT HAS DM AND HTN. ACCUCHECK 126 BY EMS, BP 138/85, HR 115, O2 SAT 100% TEMP WAS 96 DEGREES FOR EMS EMS REPORT THAT PT HAS BEEN HYPERVENTILATING AND C/O ALL OF HER MUSCLES HURTING AND LIPS AND HANDS WERE TINGLING EMS STATE THAT PT ASKED THEM MULTIPLE TIMES IF SHE WAS NO OTHER INFORMATION IS KNOWN BY EMS. EMS REPORT THAT NO ONE ELSE WAS AT THE SCENE WITH PATIENT, AND DO NOT KNOW WHO CALLED EMS. ON ARRIVAL HERE, PT IS ABLE TO ANSWER QUESTIONS, BUT SELECTIVELY ANSWERS THEM. PT ABLE TO ANSWER ALL QUESTIONS ABOUT PMH APPROPRIATELY. ON QUESTIONING HER ABOUT EVENTS OF TODAY, PT THEN IS VERY EVASIVE AND GIVES MUCH CONVOLUTED INFORMATION. 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 PT IS ANXIOUS AND HYPERVENTILATING AND SHIVERING ON ARRIVAL. THIS ALL STOPS WHEN DISTRACTED OR WHEN ASKED TO HOLD STILL AND BREATHE SLOWLY. PT STATES SHE DOES NOT KNOW IF SHE TOOK ANY OF HER MEDICATIONS TODAY PT DOES ADMIT TO SMOKING 1 PPD, DRINKING ALCOHOL--CLAIMS SHE "HAD A COUPLE OF SHOTS LAST NIGHT" AND ADMITS TO DRUG USE--METH AND THC AND PILLS, STATES SHE ""CAN'T REMEMBER" WHAT OTHER DRUGS SHE HAS USED, OR WHAT KIND OF PILLS SHE HAS USED OR WHEN SHE LAST USED ANY DRUGS. DENIES EVERY USING DRUGS IV. LMP: 1 1/2 MONTHS AGO, NO CONTROL PT HAS NOT HAD COVID OR FLU VACCINES. PCP: NIKKIE ESCOBAR AT [facility] Allergies and Home Medications Allergies Coded Allergies: Sulfa (Sulfonamide Antibiotics) (Verified Allergy, Unknown, 05/04/16) Patient Home Medication List Home Medication List Reviewed: Yes Azithromycin (Zithromax) 500 Mg Tablet, 500 MG PO DAILY Prescribed by: THALIA MALIN on 01/21/20 1031 Omeprazole (Omeprazole) 40 Mg Capsule.dr, 40 MG PO DAILY Prescribed by: VALDEZ SCHAEFER on 02/26/21 0140 Review of Systems Review of Systems Constitutional: other (PER HPI) EENTM: no symptoms reported Respiratory: no symptoms reported (OTHER THAN HYPOTHERMIA) Cardiovascular: no symptoms reported Gastrointestinal: no symptoms reported Genitourinary: no symptoms reported Musculoskeletal: see HPI Skin: no symptoms reported Psychiatric/Neurological: See HPI Past Winctww-Qjpawn-Wjoqeh Hx Patient Social History Tobacco Use?: Yes Tobacco type used: Cigarettes Smoking Status: Current Everyday Smoker Substance use?: Yes Substance type: Methamphetamine, Misuse of prescript meds, Marijuana Alcohol Use?: Yes Alcohol type: Hard Liquor Immunizations Up To Date Tetanus Booster (TDap): Unknown PED Vaccines UTD: Yes Seasonal Allergies Seasonal Allergies: No Past Medical History Surgery/Hospitalization HX: 11/27/21--PT REPORTS SHE HAS HAD HER GALLBLADDER REMOVED, BUT NO RECORD OF SURGERY BEING DONE HERE Surgeries: Yes (I&D OF ABSCESSES; LEFT HUMERUS FX/ORIF) Adenoidectomy, Orthopedic, Tonsillectomy Respiratory: No Currently Using BIPAP: No Cardiac: Yes Hypertension Neurological: No Reproductive Disorders: Yes Female Reproductive Disorders: Menstrual Problems, Polycystic Ovarian Dis Sexually Transmitted Disease: No HIV/AIDS: No Genitourinary: Yes UTI-Chronic Gastrointestinal: No Musculoskeletal: Yes (LEFT HUMERUS FX/ORIF-PLATE) Fractures Endocrine: Yes (MORBID OBESITY) Diabetes, Non-Insulin dep HEENT: Yes (S/P T & A ) Loss of Vision: Denies Hearing Impairment: Denies Cancer: No Psychosocial: Yes (POLYSUBSTANCE ABUSE) Integumentary: Yes (MULTIPLE ABSCESSES; HYDRADENITIS) Blood Disorders: No Adverse Reaction/Blood Tranf: No Family Medical History Diabetes mellitus Maternal grandmother Paternal grandmother1 FHx: heart disease Maternal grandmother No Pertinent Family Hx SOCIAL HISTORY: -SMOKES 1 PPD -ETOH--REGULAR USE, HARD LIQUOR -DRUGS--ADMITS TO METH, MARIJUANA AND "PILLS" , STATES SHE "CAN'T REMEMBER" THE OTHER DRUGS SHE HAS USED. DENIES IV USE. Physical Exam Vital Signs Vital Signs - First Documented 11/27/21 18:00 Temp 36.5 Pulse 100 Resp 18 B/P (MAP) 138/94 (109) Pulse Ox 100 O2 Delivery Room Air Capillary Refill : Height, Weight, BMI Height: 5'3.00" Weight: 180lbs. 3.1oz. 81.584719jg; 44.00 BMI Method:Estimated General Appearance: WD/WN, Anxious, Obese, Other (PT IS ANXIOUS, HY PERVENTILATING AND SHIVERING, AND TALKING RAPIDLY ON ARRIVAL. ALL CLOTHING INCLUDING SHOES AND SOCKS ARE COMPLETELY SATURATED. ) HEENT: PERRL/EOMI, Normal ENT Inspection, Pharynx Normal, Moist Mucous Membranes Neck: Normal Inspection Respiratory: Normal Breath Sounds, No Accessory Muscle Use, No Respiratory Distress, Other (HYPERVENTILATING) Cardiovascular: Regular Rate, Rhythm, No Edema, No JVD, No Murmur, Normal Peripheral Pulses Gastrointestinal: Non Tender, Soft Back: No CVA Tenderness Extremity: Normal Range of Motion, Non Tender, No Pedal Edema Neurologic/Psychiatric: Alert, Oriented x3, No Motor/Sensory Deficits, site safety coordinator II- XII Norm as Tested, Other (MENTATION NOTED ABOVE. ORIENTED TO PERSON, PLACE, TIME, KNOWS WHY SHE IS HERE, BUT GIVES CONVOLUTED INFORMATION ABOUT EVENTS OF TODAY. ) Skin: Cool; No Ecchymosis (NO EXTERNAL EVIDENCE OF TRAUMA ANYWHERE); Pallor, Other (SKIN IS WET, COLD AND PALE. SKIN ON FEET IS SHRIVELED. ) Focused Exam Lactate Level 11/27/21 18:35: Lactic Acid Level 1.76 Lactic Acid Level Laboratory Tests Test 11/27/21 18:35 Lactic Acid Level 1.76 MMOL/L (0.50-2.00) Progress/Results/Core Measures Suspected Sepsis SIRS Temperature: Pulse: Respiratory Rate: Laboratory Tests 11/27/21 18:00: White Blood Count 20.5H Blood Pressure / Mean: 11/27/21 18:35: Lactic Acid Level 1.76 Laboratory Tests 11/27/21 18:00: Creatinine 0.88, INR Comment 1.0, Platelet Count 449H, Total Bilirubin 2.0H Results/Orders Lab Results Laboratory Tests Test 11/27/21 18:00 11/27/21 18:15 11/27/21 18:18 11/27/21 18:35 Range/Units White Blood Count 20.5 H 4.3-11.0 10^3/uL Red Blood Count 5.01 3.80-5.11 10^6/uL Hemoglobin 16.5 H 11.5-16.0 g/dL Hematocrit 48 35-52 % Mean Corpuscular Volume 95 80-99 fL Mean Corpuscular Hemoglobin 33 25-34 pg Mean Corpuscular Hemoglobin Concent 35 32-36 g/dL Red Cell Distribution Width 12.8 10.0-14.5 % Platelet Count 449 H 130-400 10^3/uL Mean Platelet Volume 9.4 9.0-12.2 fL Immature Granulocyte % (Auto) 0 % Neutrophils (%) (Auto) 78 H 42-75 % Lymphocytes (%) (Auto) 15 12-44 % Monocytes (%) (Auto) 7 0-12 % Eosinophils (%) (Auto) 0 0-10 % Basophils (%) (Auto) 0 0-10 % Neutrophils # (Auto) 15.9 H 1.8-7.8 10^3/uL Lymphocytes # (Auto) 3.0 1.0-4.0 10^3/uL Monocytes # (Auto) 1.5 H 0.0-1.0 10^3/uL Eosinophils # (Auto) 0.0 0.0-0.3 10^3/uL Basophils # (Auto) 0.1 0.0-0.1 10^3/uL Immature Granulocyte # (Auto) 0.1 0.0-0.1 10^3/uL Neutrophils % (Manual) 82 % Lymphocytes % (Manual) 9 % Monocytes % (Manual) 9 % Blood Morphology Comment NORMAL Erythrocyte Sedimentation Rate 7 0-20 MM/HR Prothrombin Time 13.4 12.2-14.7 SEC INR Comment 1.0 0.8-1.4 Activated Partial Thromboplast Time 28 24-35 SEC D-Dimer 0.02 0.00-0.49 UG/ML Sodium Level 139 135-145 MMOL/L Potassium Level 4.2 3.6-5.0 MMOL/L Chloride Level 102 98-107 MMOL/L Carbon Dioxide Level 19 L 21-32 MMOL/L Anion Gap 18 H 5-14 MMOL/L Blood Urea Nitrogen 13 7-18 MG/DL Creatinine 0.88 0.60-1.30 MG/DL Estimat Glomerular Filtration Rate 91 BUN/Creatinine Ratio 15 Glucose Level 138 H 70-105 MG/DL Calcium Level 10.2 H 8.5-10.1 MG/DL Corrected Calcium 8.5-10.1 MG/DL Magnesium Level 2.2 1.6-2.4 MG/DL Total Bilirubin 2.0 H 0.1-1.0 MG/DL Aspartate Amino Transf (AST/SGOT) 29 5-34 U/L Alanine Aminotransferase (ALT/SGPT) 26 0-55 U/L Alkaline Phosphatase 49 40-136 U/L Lactate Dehydrogenase 310 H 125-220 U/L Total Creatine Kinase 1087 H 29-168 U/L Creatine Kinase MB 9.1 *H <6.6 NG/ML Myoglobin 646.0 H 10.0-92.0 NG/ML Troponin I < 0.028 <0.028 NG/ML C-Reactive Protein High Sensitivity 0.80 H 0.00-0.50 MG/DL B-Type Natriuretic Peptide < 10.0 <100.0 PG/ML Total Protein 8.1 6.4-8.2 GM/DL Albumin 4.9 H 3.2-4.5 GM/DL Amylase Level 43 25-125 U/L Lipase 22 8-78 U/L Procalcitonin 0.02 <0.10 NG/ML TSH Joanna Testing 1.70 0.35-4.94 UIU/ML Acetaminophen Level < 10 L 10-30 UG/ML Serum Alcohol < 10 <10 MG/DL Influenza Type A (RT-PCR) Not Detected Not Detecte Influenza Type B (RT-PCR) Not Detected Not Detecte SARS-CoV-2 RNA (RT-PCR) Not Detected Not Detecte Urine Color YELLOW Urine Clarity CLOUDY Urine pH 6.0 5-9 Urine Specific [place] >=1.030 1.016-1.022 Urine Protein TRACE H NEGATIVE Urine Glucose (UA) NEGATIVE NEGATIVE Urine Ketones 2+ H NEGATIVE Urine Nitrite NEGATIVE NEGATIVE Urine Bilirubin 1+ H NEGATIVE Urine Urobilinogen 1.0 < = 1.0 MG/DL Urine Leukocyte Esterase NEGATIVE NEGATIVE Urine RBC (Auto) TRACE-I H NEGATIVE Urine RBC NONE /HPF Urine WBC 0-2 /HPF Urine Squamous Epithelial Cells 0-2 /HPF Urine Renal Epithelial Cells NONE /HPF Urine Crystals NONE /LPF Urine Bacteria NEGATIVE /HPF Urine Casts NONE /LPF Urine Mucus MODERATE H /LPF Urine Culture Indicated NO Urine Opiates Screen NEGATIVE NEGATIVE Urine Oxycodone Screen NEGATIVE NEGATIVE Urine Methadone Screen NEGATIVE NEGATIVE Urine Propoxyphene Screen NEGATIVE NEGATIVE Urine Barbiturates Screen NEGATIVE NEGATIVE Ur Tricyclic Antidepressants Screen NEGATIVE NEGATIVE Urine Phencyclidine Screen NEGATIVE NEGATIVE Urine Amphetamines Screen POSITIVE H NEGATIVE Urine Methamphetamines Screen POSITIVE H NEGATIVE Urine Benzodiazepines Screen NEGATIVE NEGATIVE Urine Cocaine Screen NEGATIVE NEGATIVE Urine Cannabinoids Screen POSITIVE H NEGATIVE Glucometer 143 H 70-110 MG/DL Lactic Acid Level 1.76 0.50-2.00 MMOL/L Test 11/27/21 19:23 Range/Units Serum Test, Qualitative NEGATIVE NEGATIVE My Orders Orders - THALIA MALIN DO Accucheck Stat ONCE (11/27/21 17:59) Ekg Tracing (11/27/21 17:59) Catheter(Urinary) Insert & Ass 03,15 (11/27/21 17:59) O2 (11/27/21 17:59) Monitor-Rhythm Ecg Trace Only (11/27/21 17:59) Acetaminophen (11/27/21 17:59) Alcohol (11/27/21 17:59) Amylase (11/27/21 17:59) Bnp Rima (11/27/21 17:59) Cbc With Automated Diff (11/27/21 17:59) Comprehensive Metabolic Panel (11/27/21 17:59) Creatine Kinase (11/27/21 17:59) Creatine Kinase Mb (11/27/21 17:59) Hs C Reactive Protein (11/27/21 17:59) Fibrin Degradation Products (11/27/21 17:59) Drug Screen Stat (Urine) (11/27/21 17:59) Lactic Acid Analyzer (11/27/21 17:59) Lipase (11/27/21 17:59) Magnesium (11/27/21 17:59) Procalcitonin (Pct) (11/27/21 17:59) Protime With Inr (11/27/21 17:59) Partial Thromboplastin Time (11/27/21 17:59) Thyroid Analyzer (11/27/21 17:59) Ua Culture If Indicated (11/27/21 17:59) Erythrocyte Sedimentation Rate (11/27/21 17:59) Myoglobin Serum (11/27/21 17:59) Troponin I Rima (11/27/21 17:59) Ed Iv/Invasive Line Start (11/27/21 17:59) Lactated Ringers (Lr 1000 Ml Iv Solution (11/27/21 18:00) LDH (11/27/21 17:59) Chest 1 View, Ap/Pa Only (11/27/21 17:59) Covid 19 Inhouse Test (11/27/21 17:59) Influenza A And B By Pcr (11/27/21 17:59) Isolation Central Supply Req (11/27/21 17:59) Ct Head Wo-R/O Stroke (11/27/21 17:59) Hcg,Qualitative Serum (11/27/21 17:59) Ed Iv/Invasive Line Start (11/27/21 17:59) Manual Differential (11/27/21 18:00) Blood Culture (11/27/21 18:28) Urine Culture (11/27/21 18:28) Ed Iv/Invasive Line Start (11/27/21 18:28) Vital Signs Adult Sepsis Patie Q15M (11/27/21 18:28) O2 (11/27/21 18:28) Remove Rings In Anticipation O (11/27/21 18:28) Cefepime Injection (Maxipime Injection) (11/27/21 19:15) Medications Given in ED Current Medications Medications Dose Ordered Sig/Kyler Route Start Time Stop Time Status Last Admin Dose Admin Cefepime HCl 1000 mg/Sodium Chloride 50 ml @ 100 mls/hr ONCE ONCE IV 11/27/21 19:15 11/27/21 19:44 DC 11/27/21 19:37 100 MLS/HR Lactated Ringer's 1,000 ml @ 0 mls/hr Q0M ONCE IV 11/27/21 18:00 11/27/21 18:03 DC 11/27/21 18:00 1,000 MLS/HR Vital Signs/I&O 11/27/21 18:00 Temp 36.5 Pulse 100 Resp 18 B/P (MAP) 138/94 (109) Pulse Ox 100 O2 Delivery Room Air Capillary Refill : Progress Note : Progress Note ALL WET CLOTHING REMOVED WARM BLANKETS AND WARM IV FLUIDS GIVEN COVID AND FLU TESTING DONE. PPE WORN AT ALL TIMES SEPSIS PROTOCOL INITIATED DUE TO ELEVATED WBC NO DETERIORATION IN PT'S CONDITION PT IS NO LONGER HYPERVENTILATING, AND SPEAKING MORE RATIONALLY DOES NOT APPEAR TO BE IN ANY DISCOMFORT OR DISTRESS. LATER, PT'S , MOTHER AND ANOTHER ADULT MALE ALL IN ROOM--APPEARS TO BE SOME FAMILY DRAMA, BUT PT AND FAMILY ARE NOT DISRUPTIVE, AND PT IS NOT HAVING ANY INCREASED ANXIETY OR AGITATION. LEFT WHILE PT WAS IN CT. THEN LATER RETURNED BRIEFLY PRIOR TO PT'S ADMI T. ECG Initial ECG Impression Date: November 27, 2021 Initial ECG Impression Time: 18:19 Initial ECG Rate: 81 Initial ECG Rhythm: Normal Sinus Diagnostic Imaging Comments CXR--PER RADIOLOGIST REPORT AT 2010 FINDINGS: Lungs/pleura: Lungs are clear. There is no pneumothorax. There is no pleural effusion. Mediastinum: Unremarkable. Pulmonary vasculature: Unremarkable. Heart: Unremarkable. Bones/extrathoracic soft tissue: Unremarkable. IMPRESSION: There is no radiographic evidence of acute cardiopulmonary process. CT HEAD--NO ACUTE PROCESS, PER RADIOLOGIST VIA PHONE AT 1958 AND PER DICTATED REPORT AT 2009 FINDINGS: There is skull streak artifact which obscures portions of brainstem, posterior fossa and portions of the brain and skull base. The bilateral M1 MCA regions are also slightly obscured by streak artifact. There is no evidence of acute cerebral infarct, intracranial hemorrhage or gross mass effect. There is no dense vessel sign seen. The brain parenchymal volume appears appropriate for patient's age. Mildly prominent perivascular space beneath the right basal ganglia region. There is normal phan-white matter distinction. There is no significant midline shift or herniation. There is no evidence of hydrocephalus. The basal cisterns are unremarkable. The skull, extracranial soft tissue and orbits are unremarkable. The paranasal sinuses are unremarkable. Temporal bones show no significant abnormality. IMPRESSION: There is no acute intracranial process. There is no dense vessel sign. Reviewed: Reviewed by Me Departure Communication (Admissions) 2004--ATTEMPTING TO CONTACT DR. RODAS, NO ANSWER 2009--SPOKE WITH DR. RODAS, ACCEPTS PT FOR ADMIT. Impression Primary Impression: ALTERED MENTAL STATUS ASSOCIATED WITH ILLICIT DRUG USE Additional Impressions: Hypothermia NIDDM HX HTN Methamphetamine use Marijuana use SEPSIS UNDETERMINED CAUSE ELEVATED CK, CKMB AND MYGLOBIN Disposition: ADMITTED INPATIENT Condition: Improved Admissions Decision to Admit Reason: Admit from ER (General) Decision to Admit/Date: November 27, 2021 Time/Decision to Admit Time: 20:10 Departure-Patient Inst. Referrals: [facility] (PCP/Family) Primary Care Physician THALIA AMLIN DO November 27, 2021 18:09
[2021-11-27 18:13] LABS: BASOPHILS # (AUTO) 0.1 10^3/uL (0.0-0.1); BASOPHILS % (AUTO) 0 % (0-10); EOSINOPHILS % (AUTO) 0 % (0-10); HEMATOCRIT 48 % (35-52); HEMOGLOBIN 16.5 g/dL (11.5-16.0); LYMPHOCYTES % (AUTO) 15 % (12-44); MEAN CORPUSCULAR HEMOGLOBIN 33 pg (25-34); MEAN CORPUSCULAR HGB CONC 35 g/dL (32-36); MEAN CORPUSCULAR VOLUME 95 fL (80-99); MEAN PLATELET VOLUME 9.4 fL (9.0-12.2); MONOCYTES # (AUTO) 1.5 10^3/uL (0.0-1.0); MONOCYTES % (AUTO) 7 % (0-12); NEUTROPHILS # (AUTO) 15.9 10^3/uL (1.8-7.8); NEUTROPHILS % (AUTO) 78 % (42-75); PLATELET COUNT 449 10^3/uL (130-400); WHITE BLOOD COUNT 20.5 10^3/uL (4.3-11.0)
[2021-11-27 18:22] LABS: BILIRUBIN,URINE 1+ (NEGATIVE); CLARITY,URINE CLOUDY; COLOR,URINE YELLOW; GLUCOSE, URINE (UA) NEGATIVE (NEGATIVE); KETONES,URINE 2+ (NEGATIVE); LEUKOCYTE ESTERASE ,URINE NEGATIVE (NEGATIVE); NITRITE,URINE NEGATIVE (NEGATIVE); PROTEIN,URINE TRACE (NEGATIVE)
[2021-11-27 18:28] LABS: LYMPHOCYTES % (MANUAL) 9 %; MONOCYTES % (MANUAL) 9 %; NEUTROPHILS % (MANUAL) 82 %; RBC MORPH NORMAL
[2021-11-27 18:29] LABS: ERYTHROCYTE SEDIMENTATION RATE 7 MM/HR (0-20)
[2021-11-27 18:31] LABS: ALBUMIN 4.9 GM/DL (3.2-4.5); CHLORIDE 102 MMOL/L (98-107); POTASSIUM 4.2 MMOL/L (3.6-5.0); SODIUM 139 MMOL/L (135-145)
[2021-11-27 18:32] LABS: BACTERIA,URINE NEGATIVE /HPF; SQUAMOUS EPITHELIAL CELL,UR 0-2 /HPF; WBC,URINE 0-2 /HPF
[2021-11-27 18:32] LABS: AMYLASE 43 U/L (25-125); CALCIUM 10.2 MG/DL (8.5-10.1)
[2021-11-27 18:33] LABS: GLUCOSE 138 MG/DL (70-105); TOTAL PROTEIN 8.1 GM/DL (6.4-8.2)
[2021-11-27 18:34] LABS: CARBON DIOXIDE 19 MMOL/L (21-32)
[2021-11-27 18:35] LABS: FIBRIN DEGRADATION PRODUCTS 0.02 UG/ML (0.00-0.49); PROTHROMBIN TIME PATIENT 13.4 SEC (12.2-14.7)
[2021-11-27 18:35] LABS: AMPHETAMINE SCREEN, URINE POSITIVE (NEGATIVE); BARBITURATE SCREEN URINE NEGATIVE (NEGATIVE); BENZODIAZEPINES SCREEN URINE NEGATIVE (NEGATIVE); CANNABINOID SCREEN, URINE POSITIVE (NEGATIVE); COCAINE SCREEN URINE NEGATIVE (NEGATIVE); METHADONE STAT NEGATIVE (NEGATIVE); OPIATE SCREEN URINE NEGATIVE (NEGATIVE); OXYCODONE STAT NEGATIVE (NEGATIVE); PROPOXYPHENE STAT NEGATIVE (NEGATIVE); TRICYCLIC ANTIDEPRESSANTS SCRE NEGATIVE (NEGATIVE)
[2021-11-27 18:37] LABS: ALKALINE PHOSPHATASE 49 U/L (40-136); CREATININE SERUM 0.88 MG/DL (0.60-1.30); GFR ESTIMATED 91
[2021-11-27 18:38] LABS: BUN/CREATININE RATIO 15
[2021-11-27 18:40] LABS: ALANINE AMINOTRANSFERASE 26 U/L (0-55); MAGNESIUM 2.2 MG/DL (1.6-2.4)
[2021-11-27 18:41] LABS: CREATINE KINASE 1087 U/L (29-168); LIPASE 22 U/L (8-78)
[2021-11-27 18:50] LABS: CREATINE KINASE MB 9.1 NG/ML (<6.6)
--- NOTE | 2021-11-27 18:53 | Diagnostic Imaging Report ---
CLINICAL INDICATION: Patient with altered mental status. EXAM: Portable chest x-ray upright view. COMPARISON: Chest x-ray dated 01/21/2020. FINDINGS: Lungs/pleura: Lungs are clear. There is no pneumothorax. There is no pleural effusion. Mediastinum: Unremarkable. Pulmonary vasculature: Unremarkable. Heart: Unremarkable. Bones/extrathoracic soft tissue: Unremarkable. IMPRESSION: There is no radiographic evidence of acute cardiopulmonary process. Dictated by: Dictated on workstation # [id number]
[2021-11-27] MEDS ORDERED: CEFEPIME INJECTION 1,000 MG in NS (IVPB) 50 ML IV ONE (19:15)
[2021-11-27 19:48] LABS: ACETAMINOPHEN < 10 UG/ML (10-30)
--- NOTE | 2021-11-27 20:06 | Diagnostic Imaging Report ---
CLINICAL INDICATION: Patient with confusion. EXAM: Axial CT scan of the brain performed without IV contrast. High-resolution axial CT brain images with sagittal and coronal reformations were also created. Auto Exposure Controls were utilized during the CT exam to meet ALARA standards for radiation dose reduction. COMPARISON: None. FINDINGS: There is skull streak artifact which obscures portions of brainstem, posterior fossa and portions of the brain and skull base. The bilateral M1 MCA regions are also slightly obscured by streak artifact. There is no evidence of acute cerebral infarct, intracranial hemorrhage or gross mass effect. There is no dense vessel sign seen. The brain parenchymal volume appears appropriate for patient's age. Mildly prominent perivascular space beneath the right basal ganglia region. There is normal phan-white matter distinction. There is no significant midline shift or herniation. There is no evidence of hydrocephalus. The basal cisterns are unremarkable. The skull, extracranial soft tissue and orbits are unremarkable. The paranasal sinuses are unremarkable. Temporal bones show no significant abnormality. IMPRESSION: There is no acute intracranial process. There is no dense vessel sign. Results of this report were discussed with Dr. Gladis Donaldson via the telephone on 11/27/2021 at 1958 hours. Dictated by: Dictated on workstation # [id number]
[2021-11-27] MEDS ORDERED: NS IV 1000 ML 1,000 ML IV SCH (20:15)
[2021-11-27 21:27] VITALS: BP 120/78
[2021-11-27] MEDS ORDERED: ONDANSETRON 4 MG/2 ML (SDV) Z0FRAN IV PRN (22:00)
[2021-11-27] MEDS ORDERED: ACETAMINOPHEN 500 MG TAB (TYLENOL) PO PRN (22:00)
[2021-11-27] MEDS: NS IV 1000 ML 1,000 ML IV SCH (22:23)
[2021-11-27 23:54] VITALS: BP 118/70
[2021-11-28] MEDS: NS IV 1000 ML 1,000 ML IV SCH ×4 (04:22→20:51)
[2021-11-28] MEDS: CEFEPIME 1,000 MG/NS 50 ML IVPB IV SCH ×4 (04:22→10:09)
[2021-11-28 04:30] VITALS: BP 114/76
[2021-11-28 05:40] LABS: BASOPHILS # (AUTO) 0.1 10^3/uL (0.0-0.1); BASOPHILS % (AUTO) 0 % (0-10); EOSINOPHILS # (AUTO) 0.2 10^3/uL (0.0-0.3); EOSINOPHILS % (AUTO) 2 % (0-10); HEMATOCRIT 41 % (35-52); HEMOGLOBIN 13.8 g/dL (11.5-16.0); LYMPHOCYTES # (AUTO) 5.2 10^3/uL (1.0-4.0); LYMPHOCYTES % (AUTO) 40 % (12-44); MEAN CORPUSCULAR HEMOGLOBIN 33 pg (25-34); MEAN CORPUSCULAR HGB CONC 34 g/dL (32-36); MEAN CORPUSCULAR VOLUME 99 fL (80-99); MEAN PLATELET VOLUME 9.5 fL (9.0-12.2); MONOCYTES % (AUTO) 8 % (0-12); NEUTROPHILS # (AUTO) 6.5 10^3/uL (1.8-7.8); NEUTROPHILS % (AUTO) 50 % (42-75); PLATELET COUNT 357 10^3/uL (130-400); WHITE BLOOD COUNT 12.9 10^3/uL (4.3-11.0)
[2021-11-28 05:52] LABS: ALBUMIN 3.7 GM/DL (3.2-4.5)
[2021-11-28 05:53] LABS: POTASSIUM 3.8 MMOL/L (3.6-5.0)
[2021-11-28 05:54] LABS: CALCIUM 8.8 MG/DL (8.5-10.1)
[2021-11-28 05:59] LABS: CREATININE SERUM 0.67 MG/DL (0.60-1.30)
[2021-11-28] MEDS: inSUlin ASPART (NovoLOG) 1 UNIT/0.01 ML (CHARGE PER UNIT) SC SCH ×4 (06:19→20:06)
[2021-11-28 08:53] VITALS: BP 109/70
[2021-11-28] MEDS ORDERED: RT-ALBUINH IH (11:26)
[2021-11-28] MEDS ORDERED: BUDE10.2 IH (11:26)
[2021-11-28] MEDS ORDERED: METF750T45 PO (11:26)
[2021-11-28] MEDS ORDERED: RT-ALBUTEROL SULF 2.5 MG/3 ML PRE-MIX VIAL IH PRN (11:30)
[2021-11-28] MEDS ORDERED: ENOXAPARIN 40 MG/0.4 ML (LOVENOX) SYR SQ SCH (12:00)
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
[2021-11-28 12:43] VITALS: BP 97/62
[2021-11-28 16:20] VITALS: BP 113/62
[2021-11-28 19:54] VITALS: BP 120/59
[2021-11-28] MEDS: RT--FLUTICASONE/SALMETEROL 232-14 (AIRDUO RespiCLICK) IH SCH (21:57)
[2021-11-29 00:36] VITALS: BP 104/67
[2021-11-29 04:32] VITALS: BP 115/76
[2021-11-29] MEDS: NS IV 1000 ML 1,000 ML IV SCH (04:32)
[2021-11-29 06:05] LABS: HEMATOCRIT 41 % (35-52); HEMOGLOBIN 13.2 g/dL (11.5-16.0); MEAN CORPUSCULAR HEMOGLOBIN 33 pg (25-34); MEAN CORPUSCULAR HGB CONC 33 g/dL (32-36); MEAN CORPUSCULAR VOLUME 101 fL (80-99); MEAN PLATELET VOLUME 9.8 fL (9.0-12.2); PLATELET COUNT 343 10^3/uL (130-400); WHITE BLOOD COUNT 11.2 10^3/uL (4.3-11.0)
[2021-11-29] MEDS: inSUlin ASPART (NovoLOG) 1 UNIT/0.01 ML (CHARGE PER UNIT) SC SCH ×2 (06:07→10:47)
[2021-11-29 06:10] LABS: ALBUMIN 3.6 GM/DL (3.2-4.5); POTASSIUM 4.1 MMOL/L (3.6-5.0)
[2021-11-29 06:11] LABS: CALCIUM 8.4 MG/DL (8.5-10.1)
[2021-11-29 06:16] LABS: CREATININE SERUM 0.69 MG/DL (0.60-1.30)
[2021-11-29 06:26] LABS: CREATINE KINASE MB 4.5 NG/ML (<6.6)
[2021-11-29 07:35] VITALS: BP 124/80
[2021-11-29] MEDS: RT--FLUTICASONE/SALMETEROL 232-14 (AIRDUO RespiCLICK) IH SCH (08:43)
--- NOTE | 2021-11-29 11:11 | Discharge Summary ---
Discharge Summary Hospital Course Was the Problem List Reviewed?: Yes Problems/Dx: (1) Altered mental state (2) Polysubstance abuse (3) Hypothermia Status: Acute (4) Non-insulin dependent diabetes mellitus Hospital Course Date of Admission: November 27, 2021 at 20:10 Admission Diagnosis : [facility] of [facility]charge: 11/29/21 Discharge Diagnosis: Altered mental status, rhabdomyolysis, dehydration, polysubstance abuse Hospital Course: Patient had an uneventful hospital course after she was found down at home brought in and noted to have rhabdomyolysis and acute kidney injury which resolved with IV fluids. Polysubstance abuse noted. Patient was deemed stable for discharge. Labs and Pending Lab Test: Laboratory Tests 11/28/21 11:36: Glucometer 158H 11/28/21 16:15: Glucometer 103 11/28/21 19:52: Glucometer 111H 11/29/21 05:45: White Blood Count 11.2H, Red Blood Count 4.03, Hemoglobin 13.2, Hematocrit 41, Mean Corpuscular Volume 101H, Mean Corpuscular Hemoglobin 33, Mean Corpuscular Hemoglobin Concent 33, Red Cell Distribution Width 13.1, Platelet Count 343, Mean Platelet Volume 9.8, Sodium Level 139, Potassium Level 4.1, Chloride Level 111H, Carbon Dioxide Level 17L, Anion Gap 11, Blood Urea Nitrogen 9, Creatinine 0.69, Estimat Glomerular Filtration Rate 120, BUN/Creatinine Ratio 13, Glucose Level 112H, Calcium Level 8.4L, Corrected Calcium 8.7, Total Bilirubin 1.0, Aspartate Amino Transf (AST/SGOT) 32, Alanine Aminotransferase (ALT/SGPT) 28, Alkaline Phosphatase 39L, Total Creatine Kinase 645H, Creatine Kinase MB 4.5, Myoglobin 59.6, Total Protein 6.0L, Albumin 3.6 11/29/21 06:02: Glucometer 112H 11/29/21 10:37: Glucometer 122H Microbiology 11/27/21 Blood Culture - Preliminary, Resulted No growth 11/27/21 Urine Culture - Final, Complete Gram Pos Mixed Bacterial Cassandra Home Meds Active Reported Proair Hfa (Albuterol Sulfate) 1 Puff Puff 2 Puff IH Q4H PRN 1 PUFF = 90 MCG Symbicort 160-4.5 Mcg Inhaler (Budesonide/Formoterol Fumarate) 160 Mcg-4.5 Mcg/Actuation Hfa.aer.ad 2 Puff IH BID Metformin HCl ER (Metformin HCl) 750 Mg Tab.er.24h 750 Mg PO DAILY Assessment/Pt Instructions PCP in 1 week Discharge Planning: <30 minutes discharge planning Discharge Physical Examination Vital Signs Vital Signs Date Time Temp Pulse Resp B/P (MAP) Pulse Ox O2 Delivery O2 Flow Rate FiO2 11/29/21 09:00 Room Air 11/29/21 08:43 98 0.00 11/29/21 07:35 36.6 72 20 124/80 (95) General Appearance: No Apparent Distress, WD/WN, Chronically ill Respiratory: Lungs Clear, Normal Breath Sounds Cardiovascular: Regular Rate, Rhythm Neurologic/Psychiatric: Alert, Oriented x3 Allergies: Coded Allergies: Sulfa (Sulfonamide Antibiotics) (Verified Allergy, Unknown, Hives, 11/28/21) Discharge Summary Date of Admission November 27, 2021 at 20:10 Date of Discharge Discharge Date: November 29, 2021 EMMA DOYLE DO November 29, 2021 11:11
[2021-11-29 11:22] VITALS: BP 135/90
[2021-11-29 13:55] VITALS: BP 135/90
== END 2021-11-29 13:55 | disposition home or self-care (01) | DRG 683 ==
LOC: EDUNIT# 17:54 → ER 17:55 → 4TH 20:10
PROVIDERS: ADMIT Family Medicine; ATTEND Internal Medicine
DX: N17.9 Acute kidney failure, unspecified (principal); M62.82 Rhabdomyolysis; E87.2 Acidosis; R65.10 Systemic inflammatory response syndrome (SIRS) of non-infectious origin without acute organ dysfunction; F17.210 Nicotine dependence, cigarettes, uncomplicated; F15.10 Other stimulant abuse, uncomplicated; Z20.822 Contact with and (suspected) exposure to COVID-19; F12.10 Cannabis abuse, uncomplicated; E11.9 Type 2 diabetes mellitus without complications; I10 Essential (primary) hypertension; E66.9 Obesity, unspecified; F10.20 Alcohol dependence, uncomplicated; F32.A Depression, unspecified; F41.9 Anxiety disorder, unspecified; K58.0 Irritable bowel syndrome with diarrhea; T68.XXXA Hypothermia, initial encounter; R41.82 Altered mental status, unspecified; F19.10 Other psychoactive substance abuse, uncomplicated; E86.0 Dehydration
CPT/HCPCS: 36415; 51702; 70450; 71045; 80053; 80306; 80320; 80329; 81000; 82150; 82550; 82553; 82947; 83605; 83615; 83690; 83735; 83874; 83880; 84145; 84443; 84484; 84703; 85007; 85025; 85027; 85379; 85610; 85652; 85730; 86141; 87040; 87088; 87636; 93005; 93041; 94640; 94760

== ENCOUNTER 2021-12-03 20:18 | Emergency (ER) | payer SELFPAY ==
[~2021-12-03] VITALS: Ht 160 cm; Wt 108.4 kg
[~2021-12-03 20:18] MED LIST changes: +BUDE10.2 IH; +METF750T45 PO; +RT-ALBUINH IH
[2021-12-03 20:25] VITALS: BP 131/110
[2021-12-03] MEDS ORDERED: LORazepam INJ 2 MG/ML (ATIVAN) VIAL IVP ONE (20:45)
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
[2021-12-03] MEDS ORDERED: HYDR-700 PO (20:59)
== END 2021-12-03 21:20 | disposition home or self-care (01) ==
LOC: EDUNIT# 20:18 → ER 20:20
DX: F41.0 Panic disorder [episodic paroxysmal anxiety] (principal); E66.01 Morbid (severe) obesity due to excess calories; Z68.36 Body mass index [BMI] 36.0-36.9, adult
CPT/HCPCS: 93005

== ENCOUNTER 2022-11-09 17:47 | Emergency (ER) | payer SELFPAY ==
[~2022-11-09] VITALS: Ht 160 cm; Wt 90.7 kg
[~2022-11-09 17:47] MED LIST changes: +ALBU8.5H6 IH; +HYDR-700 PO; -RT-ALBUINH IH
--- NOTE | 2022-11-09 18:34 | ED General ---
General Chief Complaint: Glucose Problems Stated Complaint: HIGH BLOOD SUGAR Nursing Triage Note: PT AMBULATE TO TRIAGE WITH C/O HYPERGLYCEMIA. PT STATES SHE HAS NOT CHECKED HER GLUCOSE LEVELS IN QUITE SOME TIME BECAUSE HER MONITOR WAS TAKEN FROM HER. PT BLOOD GLUCOSE DURING TRIAGE WAS 138. PT ALSO STATES SHE HAS "HYDRONITISSUPERTIVA" WHICH IS "A COUSIN OF STAPH INFECTION". PT REPORTS SHE IS TIRED, VISION "IS NOT GREAT", SHAKY, AND SORES X1 MONTH. PT REPORTS SHE HAS NOT SEEN HER PCP FOR THIS C/O BECAUSE SHE'S "BEEN GOING THROUGH A LOT". Source of Information: Patient Exam Limitations: No Limitations History of Present Illness Date Seen by Provider: November 09, 2022 Time Seen by Provider: 18:20 Initial Comments 32-year-old female who is diabetic presents because she feels like her blood sugar was high. It was 138 on arrival. She also complains of issues with hidradenitis suppurativa in her groin area. She has had had things lanced in the area several times. No fevers chills nausea or vomiting. No recent antibiotics. All other systems reviewed and negative except documented per HPI. Voice recognition software was used to help create this chart Allergies and Home Medications Allergies Coded Allergies: Sulfa (Sulfonamide Antibiotics) (Verified Allergy, Unknown, Hives, 11/28/21) Patient Home Medication List Home Medication List Reviewed: Yes Albuterol Sulfate (Ventolin Hfa) 1 Puff Puff, 2 PUFF IH Q4H PRN for SHORTNESS OF BREATH, (Reported) Entered as Reported by: DOMI RODAS on 11/28/21 112 Budesonide/Formoterol Fumarate (Symbicort 160-4.5 Mcg Inhaler) 160 Mcg-4.5 Mcg/Actuation Hfa.aer.ad, 2 PUFF IH BID, (Reported) Entered as Reported by: DOMI RODAS on 11/28/21 112 Hydroxyzine HCl (Hydroxyzine HCl) 25 Mg Tablet, 25 MG PO BID PRN for ANXIETY Prescribed by: MAGALI CARL on 12/03/212058 Metformin HCl (Metformin HCl ER) 750 Mg Tab.er.24h, 750 MG PO DAILY, (Reported) Entered as Reported by: DOMI RODAS on 11/28/21 112 Review of Systems Review of Systems Constitutional: see HPI Past Qaqztkq-Hifcym-Uivdxy Hx Patient Social History Tobacco Use?: Yes Tobacco type used: Cigarettes Smoking Status: Heavy Tobacco Smoker Smokeless Tobacco Frequency: Never a User Use of E-Cig and/or Vaping dev: Yes E-Cig or Vaping type used: Nicotine Use of E-Cig and/or Vaping [place]: Current Everyday User Substance use?: No Alcohol Use?: No Pt feels they are or have been: No Immunizations Up To Date Tetanus Booster (TDap): Unknown PED Vaccines UTD: Yes Seasonal Allergies Seasonal Allergies: No Past Medical History Surgery/Hospitalization HX: 11/27/21--PT REPORTS SHE HAS HAD HER GALLBLADDER REMOVED, BUT NO RECORD OF SURGERY BEING DONE HERE Surgeries: Yes (I&D OF ABSCESSES; LEFT HUMERUS FX/ORIF) Adenoidectomy, Orthopedic, Tonsillectomy Respiratory: No Currently Using BIPAP: No Cardiac: Yes Hypertension Neurological: No Reproductive Disorders: Yes Female Reproductive Disorders: Menstrual Problems, Polycystic Ovarian Dis Sexually Transmitted Disease: No HIV/AIDS: No Genitourinary: Yes UTI-Chronic Gastrointestinal: No Musculoskeletal: Yes (LEFT HUMERUS FX/ORIF-PLATE) Fractures Endocrine: Yes (MORBID OBESITY) Diabetes, Non-Insulin dep HEENT: Yes (S/P T & A ) Loss of Vision: Denies Hearing Impairment: Denies Cancer: No Psychosocial: Yes (POLYSUBSTANCE ABUSE) Integumentary: Yes (MULTIPLE ABSCESSES; HYDRADENITIS) Blood Disorders: No Adverse Reaction/Blood Tranf: No Family Medical History Diabetes mellitus Maternal grandmother Paternal grandmother1 FHx: heart disease Maternal grandmother Heart Disease, Diabetes Physical Exam Vital Signs Vital Signs - First Documented 11/09/22 17:56 Temp 37.0 Pulse 96 Resp 17 B/P (MAP) 127/85 (99) O2 Delivery Room Air Capillary Refill : Less Than 3 Seconds Height, Weight, BMI Height: 5'3.00" Weight: 180lbs. 3.1oz. [id number]; 35.00 BMI Method:Estimated General Appearance: No Apparent Distress, WD/WN HEENT: Normal ENT Inspection, Pharynx Normal Neck: Normal Inspection, Supple Respiratory: Chest Non Tender, Lungs Clear, Normal Breath Sounds, No Accessory Muscle Use, No Respiratory Distress Cardiovascular: Regular Rate, Rhythm, Normal Peripheral Pulses Gastrointestinal: Non Tender, Soft Progress/Results/Core Measures Suspected Sepsis SIRS Temperature: Pulse: 96 Respiratory Rate: 17 Blood Pressure 127 /85 Mean: 99 Results/Orders Lab Results Laboratory Tests Test 11/09/22 17:58 Range/Units Glucometer 138 H 70-110 MG/DL Vital Signs/I&O 11/09/22 17:56 Temp 37.0 Pulse 96 Resp 17 B/P (MAP) 127/85 (99) O2 Delivery Room Air Capillary Refill : Less Than 3 Seconds Blood Pressure Mean: 99 Departure Communication (Admissions) Patient is hemodynamically stable. Blood sugar 138, no indication for further testing in that regard. She does have hidradenitis in her suprapubic region. There is 1 large area of cellulitis approximately 2 cm in maximum diameter. There is a central area small fluctuance less than 1 cm. No indication for drainage at this time. There is a slight amount of bruising around the area. We will trial antibiotics with strict return precautions. She is hemodynamically stable no evidence for septic type infection. She is discharged home with antibiotics in stable condition. Impression Primary Impression: Hidradenitis suppurativa Disposition: 01 HOME, SELF-CARE Condition: Stable Departure-Patient Inst. Referrals: [facility] [place] Primary Care Physician Patient Instructions: Hidradenitis Suppurativa Add. Discharge Instructions: Take the antibiotics as prescribed until they are gone. There is no indication for drainage at this time. Return to the emergency department for fevers or if your symptoms change in any way concerning to you. You may want to consider following with a general surgeon for possible surgical excision of the areas in question given the frequent infections in the area. Your blood sugars are only very slightly elevated here today. All discharge instructions reviewed with patient and/or family. Voiced understanding. Scripts Clindamycin HCl (Clindamycin HCl) 150 Mg Capsule 300 MG PO TID for 7 Days, #42 CAP Prov: WILLIAM MCKINNEY DO 11/09/22 WILLIAM MCKINNEY DO November 09, 2022 18:34
[2022-11-09] MEDS ORDERED: CLIN150C20 PO (18:46)
[2022-11-09 19:01] VITALS: BP 127/85
== END 2022-11-09 19:01 | disposition home or self-care (01) ==
LOC: EDUNIT# 17:47 → ER 17:49
DX: L73.2 Hidradenitis suppurativa (principal); E11.9 Type 2 diabetes mellitus without complications; L03.314 Cellulitis of groin; E66.01 Morbid (severe) obesity due to excess calories; F17.210 Nicotine dependence, cigarettes, uncomplicated; Z88.2 Allergy status to sulfonamides; Z68.35 Body mass index [BMI] 35.0-35.9, adult; Z28.310 Unvaccinated for COVID-19
CPT/HCPCS: 82947; 99281